=== PATIENT | male | born 1955 | race African-American/Black ===

== ENCOUNTER 2016-10-23 12:00 | Emergency (ER) | payer MEDICARE, MEDICAID ==
[~2016-10-23] VITALS: Ht 170.2 cm; Wt 80.0 kg
[~2016-10-23 12:00] MED LIST: AMLO10TA80 PO; ATOR10TA PO; CLOP75TA33 PO; DIPH25CA83 PO; GLIP5TAB12 PO; METF10002 PO; NAPR-681 PO; TAMS0.4C31 PO
[2016-10-23] MEDS ORDERED: DIPHENHYDRAMINE 50MG/ML VIAL IM ONE (13:45)
[2016-10-23] MEDS ORDERED: METOCLOPRAMIDE HCL 10MG/2ML VIAL IV ONE (13:45)
[2016-10-23] MEDS ORDERED: ACETAMINOPHEN WITH CODEINE 300/30MG TABLET PO ONE (13:45)
[2016-10-23 19:51] VITALS: BP 136/66
== END 2016-10-23 20:02 | disposition home or self-care (01) ==
LOC: ER 12:00
DX: R51 Headache (principal); I10 Essential (primary) hypertension; E11.9 Type 2 diabetes mellitus without complications; I69.351 Hemiplegia and hemiparesis following cerebral infarction affecting right dominant side; I69.321 Dysphasia following cerebral infarction; Z79.84 Long term (current) use of oral hypoglycemic drugs; Z79.899 Other long term (current) drug therapy
CPT/HCPCS: 96372; 96374; 99284; J1200; J2765

== ENCOUNTER 2017-04-26 01:49 | Emergency (ER) | payer MEDICARE, MEDICAID ==
[~2017-04-26] VITALS: Ht 180.3 cm; Wt 109.0 kg
[2017-04-26] MEDS ORDERED: ONDANSETRON HCL 4MG/2ML VIAL IV STA (02:36)
[2017-04-26] MEDS ORDERED: MORPHINE SULFATE 4 MG/ML CPJ (NOT FOR IM USE) IV STA (02:36)
[2017-04-26] MEDS ORDERED: ENALAPRIL 2.5MG/2ML VIAL 2ML IV ONE (02:45)
[2017-04-26 02:54] LABS: BASOPHILS % 0.7 % (0.0-2.0); EOSINOPHILS % 4.8 % (0.0-5.0); HEMATOCRIT. 34.2 % (42.0-52.0); HEMOGLOBIN. 11.6 g/dL (14.0-18.0); LYMPHOCYTES % 31.1 % (20.0-50.0); MEAN CORPUSCULAR HEMOGLOBIN 30.1 pg (28.0-32.0); MEAN CORPUSCULAR VOLUME 88.4 fL (80.0-94.0); MONOCYTES % 7.7 % (2.0-8.0); NEUTROPHILS % 55.7 % (40.0-76.0); PLATELET 210 x1000/uL (130-400); RED BLOOD CELL COUNT 3.87 mill/uL (4.7-6.1); RED CELL DISTRIBUTION WIDTH 13.7 % (11.6-14.6)
[2017-04-26 02:57] LABS: CHLORIDE 104 mEq/L (98-107)
[2017-04-26 03:05] LABS: CARBON DIOXIDE 31 mEq/L (21-32)
[2017-04-26 08:02] VITALS: BP 158/76
== END 2017-04-26 08:08 | disposition home or self-care (01) ==
LOC: ER 01:49
DX: R51 Headache (principal); I10 Essential (primary) hypertension; E11.9 Type 2 diabetes mellitus without complications; Z86.73 Personal history of transient ischemic attack (TIA), and cerebral infarction without residual deficits
CPT/HCPCS: 36415; 70450; 80053; 85025; 96374; 96375; 99285; J2270; J2405; J3490

== ENCOUNTER 2017-05-17 15:37 | Emergency (ER) | payer MEDICARE, MEDICAID ==
[~2017-05-17] VITALS: Ht 167.6 cm; Wt 91.0 kg
[2017-05-17] MEDS ORDERED: SODIUM CHLORIDE 0.9% 1,000 ML IV ONE (17:38)
[2017-05-17] MEDS ORDERED: KETOROLAC 30MG/ML VIAL IV STA (17:38)
[2017-05-17] MEDS ORDERED: METOCLOPRAMIDE HCL 10MG/2ML VIAL IV ONE (17:45)
[2017-05-17 21:40] VITALS: BP 168/76
== END 2017-05-17 22:06 | disposition home or self-care (01) ==
LOC: ER 15:37
DX: R51 Headache (principal); I10 Essential (primary) hypertension; E11.9 Type 2 diabetes mellitus without complications; Z79.84 Long term (current) use of oral hypoglycemic drugs
CPT/HCPCS: 96361; 96374; 96375; 99285; J1885; J2765; J7030

== ENCOUNTER 2017-07-06 05:25 | Inpatient (IN) | payer MEDICARE, MEDICAID ==
[~2017-07-06] VITALS: Ht 170.2 cm; Wt 101.7 kg
[2017-07-06] MEDS ORDERED: NITROGLYCERIN OINT 1GM/INCH UDPKT TD STA (06:17)
[2017-07-06] MEDS ORDERED: MORPHINE SULFATE 4 MG/ML CPJ (NOT FOR IM USE) IV ONE (06:30)
[2017-07-06] MEDS ORDERED: ASPIRIN 325MG EC TABLET PO ONE (06:30)
[2017-07-06 06:34] LABS: EOSINOPHILS % 6.6 % (0.0-5.0); HEMATOCRIT. 30.7 % (42.0-52.0); HEMOGLOBIN. 10.6 g/dL (14.0-18.0); LYMPHOCYTES % 27.9 % (20.0-50.0); MEAN CORPUSCULAR VOLUME 87.2 fL (80.0-94.0); MEAN PLATELET VOLUME 9.3 fl (7.4-10.4); MONOCYTES % 7.6 % (2.0-8.0); NEUTROPHILS % 56.9 % (40.0-76.0); PLATELET 175 x1000/uL (130-400); RED BLOOD CELL COUNT 3.52 mill/uL (4.7-6.1); RED CELL DISTRIBUTION WIDTH 13.1 % (11.6-14.6)
[2017-07-06 06:41] LABS: CHLORIDE 103 mEq/L (98-107)
[2017-07-06 06:51] LABS: INR 1.1; PARTIAL THROMBOPLASTIN TIME 25.5 sec (23.4-31.0); PROTHROMBIN TIME 11.1 sec (9.4-11.6)
[2017-07-06] MEDS ORDERED: HYDROCODONE/ACETAMINOPHEN 5/325MG TABLET PO ONE (12:00)
[2017-07-06] MEDS ORDERED: HYDROCODONE/ACETAMINOPHEN 5/325MG TABLET PO PRN (14:30)
[2017-07-06] MEDS ORDERED: ACETAMINOPHEN 325MG TABLET PO PRN (14:30)
[2017-07-06] MEDS ORDERED: DEXTROSE 50% WATER 50ML SYRINGE IV PRN (14:30)
[2017-07-06] MEDS ORDERED: ONDANSETRON HCL 4MG/2ML VIAL IV PRN (14:30)
[2017-07-06] MEDS ORDERED: IPRATROPIUM/ALBUTEROL 0.5-3(2.5)MG/3ML NEB INH PRN (14:30)
[2017-07-06] MEDS ORDERED: CLONIDINE 0.1MG TABLET PO PRN (14:30)
[2017-07-06] MEDS ORDERED: DIPHENHYDRAMINE 50MG/ML VIAL IV PRN (14:30)
[2017-07-06 17:30] VITALS: BP 188/79
[2017-07-06] MEDS: BLOOD SUGAR DIAGNOSTIC STRIP TEST SCH ×2 (17:30→20:56)
[2017-07-06] MEDS ORDERED: IBUP-2030 PO (17:35)
[2017-07-06] MEDS ORDERED: TAMS0.4C31 PO ×2 (17:40→17:42)
[2017-07-06] MEDS ORDERED: FURO20TA4 PO (17:43)
[2017-07-06] MEDS ORDERED: HYDR25TA PO (17:44)
[2017-07-06] MEDS ORDERED: LISI40TA4 PO (17:46)
[2017-07-06] MEDS ORDERED: CARV25TA47 PO (17:47)
[2017-07-06] MEDS: AMLODIPINE 10MG TABLET PO SCH (19:21)
[2017-07-06] MEDS: LOSARTAN POTASSIUM 50 MG TABLET PO SCH (19:21)
[2017-07-06 20:00] VITALS: BP 158/62
[2017-07-06] MEDS ORDERED: ATORVASTATIN CALCIUM 10MG TABLET PO SCH (21:00)
[2017-07-06] MEDS: INSULIN LISPRO 100 UNITS/ML SUBCUT SCH (21:51)
[2017-07-06] MEDS ORDERED: FUROSEMIDE 20MG TABLET PO PRN (22:30)
[2017-07-06 22:31] LABS: CLARITY URINE CLEAR (CLEAR); COLOR URINE YELLOW (YELLOW); KETONES URINE NEGATIVE (NEGATIVE); LEUKOCYTE ESTERASE URINE NEGATIVE (NEGATIVE); NITRITE URINE NEGATIVE (NEGATIVE); OCCULT BLOOD URINE NEGATIVE (NEGATIVE); PH URINE 5.5 (4.5-8.0); PROTEIN URINE NEGATIVE (NEGATIVE); SPECIFIC GRAVITY URINE 1.011 (1.005-1.030); UROBILINOGEN URINE 0.2 E.U./dL (0.2-1.0)
[2017-07-06 22:45] LABS: *AMPHETAMINES SCREEN URINE NEGATIVE (NEGATIVE); *BARBITURATES SCREEN URINE NEGATIVE (NEGATIVE); *BENZODIAZEPINES SCREEN URINE NEGATIVE (NEGATIVE); *COCAINE SCREEN URINE NEGATIVE (NEGATIVE); CANNABINOID URINE SCREEN NEGATIVE (NEGATIVE); METHADONE URINE SCREEN NEGATIVE (NEGATIVE); OPIATES URINE SCREEN PRESUMTIVE POSITIVE (NEGATIVE); PHENCYCLIDINE URINE SCREEN NEGATIVE (NEGATIVE)
[2017-07-07] VITALS: BP 181/71
[2017-07-07] MEDS: IBUPROFEN 800MG TABLET PO SCH ×3 (00:13→13:42)
[2017-07-07 04:00] VITALS: BP 147/54
[2017-07-07] MEDS: BLOOD SUGAR DIAGNOSTIC STRIP TEST SCH ×2 (06:18→11:45)
[2017-07-07] MEDS: INSULIN LISPRO 100 UNITS/ML SUBCUT SCH ×2 (06:22→13:44)
[2017-07-07] MEDS ORDERED: TAMSULOSIN HCL 0.4MG SR CAPSULE PO SCH (07:15)
[2017-07-07] MEDS ORDERED: METFORMIN HCL 500MG TABLET PO SCH (07:15)
[2017-07-07 07:40] LABS: BASOPHILS % 0.4 % (0.0-2.0); EOSINOPHILS % 5.5 % (0.0-5.0); HEMATOCRIT. 30.7 % (42.0-52.0); HEMOGLOBIN. 10.9 g/dL (14.0-18.0); MEAN CORPUSCULAR HEMOGLOBIN 30.7 pg (28.0-32.0); MEAN CORPUSCULAR VOLUME 86.2 fL (80.0-94.0); MEAN PLATELET VOLUME 9.2 fl (7.4-10.4); MONOCYTES % 6.5 % (2.0-8.0); NEUTROPHILS % 56.6 % (40.0-76.0); PLATELET 194 x1000/uL (130-400); RED BLOOD CELL COUNT 3.56 mill/uL (4.7-6.1); RED CELL DISTRIBUTION WIDTH 13.4 % (11.6-14.6)
[2017-07-07 08:00] VITALS: BP 119/65
[2017-07-07 08:37] LABS: CHLORIDE 103 mEq/L (98-107)
[2017-07-07 08:49] LABS: HDL CHOLESTEROL 28 mg/dL (40-59); LDL CHOLESTEROL 53 mg/dL (5-100)
[2017-07-07] MEDS: AMLODIPINE 10MG TABLET PO SCH (08:54)
[2017-07-07] MEDS ORDERED: CARVEDILOL 25MG TABLET PO SCH (09:00)
[2017-07-07] MEDS ORDERED: HYDROCHLOROTHIAZIDE 25MG TABLET PO SCH (09:00)
[2017-07-07] MEDS ORDERED: GLIPIZIDE 5MG TABLET PO SCH (09:00)
[2017-07-07] MEDS ORDERED: CLOPIDOGREL 75MG TABLET PO SCH (09:00)
[2017-07-07] MEDS ORDERED: LISINOPRIL 40MG TABLET PO SCH (09:00)
[2017-07-07] MEDS: LOSARTAN POTASSIUM 50 MG TABLET PO SCH (09:03)
[2017-07-07] MEDS ORDERED: TAMS-11 PO (10:00)
[2017-07-07 12:00] VITALS: BP_SYST 130
[2017-07-07 15:33] VITALS: BP 130/55
[2017-07-07 16:00] VITALS: BP 153/65
[2017-07-08] MEDS ORDERED: TAMSULOSIN HCL 0.4MG SR CAPSULE PO SCH (09:00)
[2017-07-09 10:06] LABS: ABSOLUTE EOSINOPHILS 0.4 x10E3/uL (0.0-0.4); ABSOLUTE LYMPHOCYTES 2.2 x10E3/uL (0.7-3.1); ABSOLUTE MONOCYTES 0.5 x10E3/uL (0.1-0.9); ABSOLUTE NEUTROPHILS 4.1 x10E3/uL (1.4-7.0); BASOPHILS 1 % (Not Estab.); HEMATOCRIT 34.6 % (37.5-51.0); HEMOGLOBIN 10.8 g/dL (13.0-17.7); IMMATURE GRANULOCYTES 0 % (Not Estab.); LYMPHOCYTES 31 % (Not Estab.); MEAN CORPUSCULAR HEMOGLOBIN 29.8 pg (26.6-33.0); MEAN CORPUSCULAR HGB CONC. 31.2 g/dL (31.5-35.7); MEAN CORPUSCULAR VOLUME 96 fL (79-97); MONOCYTES 7 % (Not Estab.); NEUTROPHILS 56 % (Not Estab.); PLATELETS 208 x10E3/uL (150-379); RBC 3.62 x10E6/uL (4.14-5.80); RED CELL DISTRIBUTION WIDTH 13.8 % (12.3-15.4); WBC 7.2 x10E3/uL (3.4-10.8)
[2017-07-10 04:12] LABS: % CD 3 POS. LYMPHOCYTES 81.4 % (57.5-86.2); % CD 4 POS. LYMPHOCYTES 55.6 % (30.8-58.5); % CD 8 POS. LYMPH 26.3 % (12.0-35.5); ABSOLUTE CD 3 1791 /uL (622-2402); ABSOLUTE CD 4 HELPER 1223 /uL (359-1519); ABSOLUTE CD 8 SUPPRESSOR 579 /uL (109-897); CD4/CD8 RATIO 2.11 (0.92-3.72)
== END 2017-07-07 17:02 | disposition home or self-care (01) | DRG 206 ==
LOC: ER 05:25 → 5WST 13:18 → ENRESERV 15:38
PROVIDERS: ADMIT Internal Medicine; ATTEND Internal Medicine
DX: M94.0 Chondrocostal junction syndrome [Tietze] (principal); I11.0 Hypertensive heart disease with heart failure; I50.9 Heart failure, unspecified; I69.351 Hemiplegia and hemiparesis following cerebral infarction affecting right dominant side; D64.9 Anemia, unspecified; E11.9 Type 2 diabetes mellitus without complications; E78.5 Hyperlipidemia, unspecified; N40.0 Benign prostatic hyperplasia without lower urinary tract symptoms; Z60.2 Problems related to living alone; Z82.49 Family history of ischemic heart disease and other diseases of the circulatory system; Z83.3 Family history of diabetes mellitus; Z79.899 Other long term (current) drug therapy
CPT/HCPCS: 36415; 71045; 80053; 80061; 80305; 81003; 82962; 83036; 83690; 84484; 85025; 85610; 85730; 86359; 86360; 87040; 87086; 93005; 93306; 96374; 99285; J1815; J2270; J2405

== ENCOUNTER 2017-07-22 19:38 | Emergency (ER) | payer MEDICARE, MEDICAID ==
[~2017-07-22] VITALS: Ht 170.2 cm; Wt 98.0 kg
[~2017-07-22 19:38] MED LIST changes: -AMLO10TA80 PO; +CARV25TA47 PO; -CLOP75TA33 PO; -DIPH25CA83 PO; +FURO20TA4 PO; +HYDR25TA PO; +IBUP-2030 PO; +LISI40TA4 PO; -NAPR-681 PO; +TAMS-11 PO; -TAMS0.4C31 PO
[2017-07-22 20:31] LABS: BASOPHILS % 0.4 % (0.0-2.0); EOSINOPHILS % 4.7 % (0.0-5.0); HEMATOCRIT. 35.4 % (42.0-52.0); LYMPHOCYTES % 27.4 % (20.0-50.0); MEAN CORPUSCULAR HEMOGLOBIN 29.8 pg (28.0-32.0); MEAN CORPUSCULAR VOLUME 87.8 fL (80.0-94.0); MEAN PLATELET VOLUME 9.5 fl (7.4-10.4); MONOCYTES % 6.8 % (2.0-8.0); NEUTROPHILS % 60.7 % (40.0-76.0); PLATELET 222 x1000/uL (130-400); RED BLOOD CELL COUNT 4.03 mill/uL (4.7-6.1); RED CELL DISTRIBUTION WIDTH 13.6 % (11.6-14.6)
[2017-07-22 20:36] LABS: CHLORIDE 105 mEq/L (98-107)
[2017-07-22 20:40] LABS: ETHANOL BLOOD < 10 mg/dL
[2017-07-22 20:48] LABS: INR 1.1; PROTHROMBIN TIME 11.5 sec (9.4-11.6)
[2017-07-22] MEDS ORDERED: IOHEXOL-350 100 ML BOTTLE ONE (22:42)
[2017-07-23] MEDS ORDERED: ASPIRIN 300MG SUPP PR ONE
[2017-07-23 00:47] VITALS: BP 172/80
== END 2017-07-23 01:00 | disposition short-term general hospital (02) ==
LOC: ER 20:20 → CANBEDREQ 07-23 02:45
DX: I63.9 Cerebral infarction, unspecified (principal); I66.01 Occlusion and stenosis of right middle cerebral artery; R29.810 Facial weakness; G81.94 Hemiplegia, unspecified affecting left nondominant side; R47.02 Dysphasia; R79.89 Other specified abnormal findings of blood chemistry; E11.9 Type 2 diabetes mellitus without complications; I11.0 Hypertensive heart disease with heart failure; I50.9 Heart failure, unspecified; E78.00 Pure hypercholesterolemia, unspecified; I69.398 Other sequelae of cerebral infarction; R90.82 White matter disease, unspecified; Z79.84 Long term (current) use of oral hypoglycemic drugs
CPT/HCPCS: 36415; 51702; 70450; 70496; 70498; 71045; 80053; 82962; 84484; 85025; 85610; 93005; 99291; G0482; J7030; Q9967; A4315

== ENCOUNTER 2017-08-26 11:03 | Inpatient (IN) | payer MEDICARE, MEDICAID ==
[~2017-08-26] VITALS: Ht 170.2 cm; Wt 103.6 kg
[2017-08-26] MEDS ORDERED: SODIUM CHLORIDE 0.9% 500 ML IV ONE (14:15)
[2017-08-26 14:52] LABS: BASOPHILS % 0.4 % (0.0-2.0); EOSINOPHILS % 0.2 % (0.0-5.0); HEMATOCRIT. 36.6 % (42.0-52.0); HEMOGLOBIN. 12.5 g/dL (14.0-18.0); LYMPHOCYTES % 11.2 % (20.0-50.0); MEAN CORPUSCULAR HEMOGLOBIN 29.9 pg (28.0-32.0); MEAN CORPUSCULAR VOLUME 87.1 fL (80.0-94.0); MONOCYTES % 7.5 % (2.0-8.0); NEUTROPHILS % 80.7 % (40.0-76.0); PLATELET 220 x1000/uL (130-400); RED CELL DISTRIBUTION WIDTH 13.7 % (11.6-14.6)
[2017-08-26 14:54] LABS: CHLORIDE 105 mEq/L (98-107)
[2017-08-26 14:55] LABS: INR 1.1; PROTHROMBIN TIME 11.6 sec (9.4-11.6)
[2017-08-26 14:58] LABS: AMMONIA 23 uMol/L (<32)
[2017-08-26 16:01] LABS: CLARITY URINE CLEAR (CLEAR); COLOR URINE YELLOW (YELLOW); KETONES URINE 3+ (NEGATIVE); LEUKOCYTE ESTERASE URINE NEGATIVE (NEGATIVE); NITRITE URINE NEGATIVE (NEGATIVE); OCCULT BLOOD URINE NEGATIVE (NEGATIVE); PH URINE 5.5 (4.5-8.0); PROTEIN URINE 2+ (NEGATIVE); SPECIFIC GRAVITY URINE 1.023 (1.005-1.030)
[2017-08-26 16:16] LABS: *AMPHETAMINES SCREEN URINE NEGATIVE (NEGATIVE); *BARBITURATES SCREEN URINE NEGATIVE (NEGATIVE); *BENZODIAZEPINES SCREEN URINE NEGATIVE (NEGATIVE)
[2017-08-26 16:17] LABS: *COCAINE SCREEN URINE NEGATIVE (NEGATIVE); CANNABINOID URINE SCREEN NEGATIVE (NEGATIVE); METHADONE URINE SCREEN NEGATIVE (NEGATIVE); OPIATES URINE SCREEN NEGATIVE (NEGATIVE); PHENCYCLIDINE URINE SCREEN NEGATIVE (NEGATIVE)
[2017-08-26] MEDS ORDERED: HYDRALAZINE 20MG/ML VIAL IV ONE ×2 (17:45→19:00)
[2017-08-26] MEDS ORDERED: SODIUM CHLORIDE 0.9% 1,000 ML IV ONE (18:45)
[2017-08-26 20:43] LABS: HEPATITIS B SURFACE ANTIGEN NEGATIVE
[2017-08-26 21:12] LABS: HEPATITIS B CORE AB IGM NEGATIVE
[2017-08-26 21:13] LABS: HEPATITIS A AB IGM NEGATIVE (NEGATIVE)
[2017-08-26 21:58] LABS: AMMONIA 26 uMol/L (<32)
[2017-08-26 22:00] VITALS: BP 179/76
[2017-08-26 22:10] VITALS: BP 179/72
[2017-08-27] VITALS: BP 175/81
[2017-08-27] MEDS ORDERED: DEXTROSE 50% WATER 50ML SYRINGE IV PRN (00:30)
[2017-08-27] MEDS ORDERED: IBUPROFEN 800MG TABLET PO PRN (00:30)
[2017-08-27] MEDS ORDERED: FUROSEMIDE 20MG TABLET PO PRN (00:30)
[2017-08-27] MEDS: CARVEDILOL 25MG TABLET PO SCH ×3 (01:31→21:00)
[2017-08-27] MEDS: HYDROCHLOROTHIAZIDE 25MG TABLET PO SCH ×4 (01:31→17:00)
[2017-08-27] MEDS ORDERED: IPRATROPIUM/ALBUTEROL 0.5-3(2.5)MG/3ML NEB ONE (01:55)
[2017-08-27] MEDS: IPRATROPIUM/ALBUTEROL 0.5-3(2.5)MG/3ML NEB HHN SCH ×5 (01:56→20:57)
[2017-08-27] MEDS ORDERED: ACETAMINOPHEN 650MG/20.3ML UDC PO PRN (03:45)
[2017-08-27 04:00] VITALS: BP 154/73
[2017-08-27] MEDS: BLOOD SUGAR DIAGNOSTIC STRIP TEST SCH ×4 (06:07→21:55)
[2017-08-27] MEDS: INSULIN LISPRO 100 UNITS/ML SUBCUT SCH ×4 (06:07→21:00)
[2017-08-27 06:44] LABS: BASOPHILS % 0.3 % (0.0-2.0); EOSINOPHILS % 0.3 % (0.0-5.0); HEMATOCRIT. 36.2 % (42.0-52.0); HEMOGLOBIN. 12.3 g/dL (14.0-18.0); LYMPHOCYTES % 11.2 % (20.0-50.0); MEAN CORPUSCULAR HEMOGLOBIN 29.9 pg (28.0-32.0); MONOCYTES % 7.6 % (2.0-8.0); NEUTROPHILS % 80.6 % (40.0-76.0); PLATELET 219 x1000/uL (130-400); RED BLOOD CELL COUNT 4.12 mill/uL (4.7-6.1)
[2017-08-27 06:59] LABS: CHLORIDE 106 mEq/L (98-107)
[2017-08-27 07:09] LABS: LDL CHOLESTEROL 40 mg/dL (5-100)
[2017-08-27 07:11] LABS: HDL CHOLESTEROL 40 mg/dL (40-59)
[2017-08-27 08:00] VITALS: BP 167/73
[2017-08-27] MEDS ORDERED: CLONIDINE 0.1MG TABLET PO PRN (09:30)
[2017-08-27] MEDS ORDERED: VANCOMYCIN 2,000 MG in DEXT 5% WATER 500 ML IV NR (11:00)
[2017-08-27] MEDS: LISINOPRIL 40MG TABLET PO SCH (11:11)
[2017-08-27] MEDS: TAMSULOSIN HCL 0.4MG SR CAPSULE PO SCH (11:12)
[2017-08-27] MEDS: METFORMIN HCL 500MG TABLET PO SCH ×2 (11:12→17:09)
[2017-08-27 12:00] VITALS: BP 155/62
[2017-08-27 16:00] VITALS: BP 118/63
[2017-08-27] MEDS ORDERED: ATORVASTATIN CALCIUM 10MG TABLET PO SCH (17:00)
[2017-08-27] MEDS: PIPERACILLIN/TAZ 3.375G PREMIX 50 ML IV SCH ×2 (18:15→23:26)
[2017-08-27] MEDS: DEXT 5%/0.45% NACL 1000ML 1,000 ML IV SCH (18:15)
[2017-08-27] MEDS: CLOPIDOGREL 75MG TABLET PO SCH (19:30)
[2017-08-27 20:00] VITALS: BP 144/64
[2017-08-27] MEDS ORDERED: VANCOMYCIN 1250MG in DEXTROSE 5% WATER 250ML IV SCH (21:00)
[2017-08-27] MEDS ORDERED: ATORVASTATIN CALCIUM 40MG TABLET PO SCH (21:00)
[2017-08-27] MEDS: ENOXAPARIN 30MG/0.3ML SYR SUBCUT SCH (21:55)
[2017-08-27] MEDS: VANCOMYCIN 1500MG in DEXTROSE 5% WATER 250ML IV SCH (21:55)
[2017-08-28] VITALS: BP 155/69
[2017-08-28] MEDS: IPRATROPIUM/ALBUTEROL 0.5-3(2.5)MG/3ML NEB HHN SCH ×5 (00:47→21:19)
[2017-08-28 04:00] VITALS: BP 156/58
[2017-08-28] MEDS: PIPERACILLIN/TAZ 3.375G PREMIX 50 ML IV SCH ×3 (05:07→22:37)
[2017-08-28 05:50] LABS: BASOPHILS % 0.4 % (0.0-2.0); HEMATOCRIT. 35.9 % (42.0-52.0); HEMOGLOBIN. 12.2 g/dL (14.0-18.0); LYMPHOCYTES % 16.2 % (20.0-50.0); MEAN CORPUSCULAR VOLUME 88.5 fL (80.0-94.0); MEAN PLATELET VOLUME 8.8 fl (7.4-10.4); MONOCYTES % 8.4 % (2.0-8.0); PLATELET 212 x1000/uL (130-400); RED BLOOD CELL COUNT 4.06 mill/uL (4.7-6.1); RED CELL DISTRIBUTION WIDTH 13.8 % (11.6-14.6)
[2017-08-28] MEDS: BLOOD SUGAR DIAGNOSTIC STRIP TEST SCH ×4 (06:31→21:00)
[2017-08-28] MEDS: DEXT 5%/0.45% NACL 1000ML 1,000 ML IV SCH ×2 (06:31→16:05)
[2017-08-28] MEDS: INSULIN LISPRO 100 UNITS/ML SUBCUT SCH ×4 (06:32→22:11)
[2017-08-28] MEDS: METFORMIN HCL 500MG TABLET PO SCH ×2 (06:33→16:22)
[2017-08-28 08:00] VITALS: BP 148/54
[2017-08-28 08:20] LABS: HIV SCREEN 4G Non Reactive (Non Reactive)
[2017-08-28] MEDS: CARVEDILOL 25MG TABLET PO SCH (09:00)
[2017-08-28] MEDS: HYDROCHLOROTHIAZIDE 25MG TABLET PO SCH ×3 (09:00→16:22)
[2017-08-28] MEDS: LISINOPRIL 40MG TABLET PO SCH (09:00)
[2017-08-28] MEDS: TAMSULOSIN HCL 0.4MG SR CAPSULE PO SCH (10:31)
[2017-08-28] MEDS: CLOPIDOGREL 75MG TABLET PO SCH (10:32)
[2017-08-28] MEDS ORDERED: IOHEXOL-350 100 ML BOTTLE ONE (11:03)
[2017-08-28 12:00] VITALS: BP 177/85
[2017-08-28] MEDS: VANCOMYCIN 1500MG in DEXTROSE 5% WATER 250ML IV SCH ×2 (12:10→22:08)
[2017-08-28] MEDS: ENOXAPARIN 30MG/0.3ML SYR SUBCUT SCH ×2 (12:11→22:08)
[2017-08-28 16:00] VITALS: BP 140/59
[2017-08-28 17:50] LABS: CREATINE KINASE 130 IU/L (39-308)
[2017-08-28 20:00] VITALS: BP 186/72
[2017-08-28] MEDS ORDERED: AMLODIPINE 5MG TABLET PO SCH (21:00)
[2017-08-28] MEDS ORDERED: FUROSEMIDE 20MG TABLET NG PRN (21:15)
[2017-08-28] MEDS ORDERED: IBUPROFEN 800MG TABLET NG PRN (21:15)
[2017-08-28] MEDS ORDERED: CLONIDINE 0.1MG TABLET NG PRN (21:30)
[2017-08-28] MEDS ORDERED: ACETAMINOPHEN 650MG/20.3ML UDC NG PRN (21:45)
[2017-08-29] VITALS: BP 172/79
[2017-08-29] MEDS: IPRATROPIUM/ALBUTEROL 0.5-3(2.5)MG/3ML NEB HHN SCH ×6 (01:57→20:33)
[2017-08-29 04:00] VITALS: BP 166/81
[2017-08-29] MEDS: PIPERACILLIN/TAZ 3.375G PREMIX 50 ML IV SCH ×3 (05:51→21:05)
[2017-08-29] MEDS: DEXT 5%/0.45% NACL 1000ML 1,000 ML IV SCH ×3 (05:51→20:00)
[2017-08-29] MEDS: BLOOD SUGAR DIAGNOSTIC STRIP TEST SCH ×4 (05:51→20:58)
[2017-08-29] MEDS: INSULIN LISPRO 100 UNITS/ML SUBCUT SCH ×3 (06:28→20:58)
[2017-08-29] MEDS: METFORMIN HCL 500MG TABLET NG SCH ×2 (06:39→16:53)
[2017-08-29 07:28] LABS: BASOPHILS % 0.5 % (0.0-2.0); HEMATOCRIT. 34.3 % (42.0-52.0); HEMOGLOBIN. 11.8 g/dL (14.0-18.0); LYMPHOCYTES % 14.4 % (20.0-50.0); MEAN CORPUSCULAR VOLUME 87.4 fL (80.0-94.0); MEAN PLATELET VOLUME 8.8 fl (7.4-10.4); MONOCYTES % 7.3 % (2.0-8.0); NEUTROPHILS % 74.8 % (40.0-76.0); PLATELET 192 x1000/uL (130-400); RED BLOOD CELL COUNT 3.93 mill/uL (4.7-6.1); RED CELL DISTRIBUTION WIDTH 13.8 % (11.6-14.6)
[2017-08-29 07:53] LABS: CHLORIDE 103 mEq/L (98-107)
[2017-08-29 08:00] VITALS: BP 177/82
[2017-08-29] MEDS: CARVEDILOL 25MG TABLET NG SCH ×2 (09:06→21:05)
[2017-08-29] MEDS: LISINOPRIL 40MG TABLET NG SCH (09:07)
[2017-08-29] MEDS: HYDROCHLOROTHIAZIDE 25MG TABLET NG SCH ×3 (09:07→16:52)
[2017-08-29] MEDS: AMLODIPINE 5MG TABLET NG SCH ×2 (09:08→21:05)
[2017-08-29] MEDS: VANCOMYCIN 1500MG in DEXTROSE 5% WATER 250ML IV SCH (09:08)
[2017-08-29] MEDS: CLOPIDOGREL 75MG TABLET NG SCH (09:08)
[2017-08-29] MEDS: ENOXAPARIN 30MG/0.3ML SYR SUBCUT SCH ×2 (09:09→21:07)
[2017-08-29 12:00] VITALS: BP 152/86
[2017-08-29] MEDS ORDERED: POTASSIUM CHLORIDE 20MEQ/PACKET PO NR (13:30)
[2017-08-29] MEDS: HYDRALAZINE HCL 50MG TABLET PO SCH ×2 (13:34→21:06)
[2017-08-29] MEDS ORDERED: HYDRALAZINE HCL 50MG TABLET PO SCH (14:00)
[2017-08-29 16:00] VITALS: BP 138/69
[2017-08-29] MEDS: VANCOMYCIN 1 G PREMIX 200 ML IV SCH (16:52)
[2017-08-29 20:20] VITALS: BP 142/76
[2017-08-29] MEDS: ATORVASTATIN CALCIUM 40MG TABLET NG SCH (21:06)
[2017-08-30] MEDS: IPRATROPIUM/ALBUTEROL 0.5-3(2.5)MG/3ML NEB HHN SCH ×5 (00:04→20:41)
[2017-08-30 00:33] VITALS: BP 116/47
[2017-08-30] MEDS: VANCOMYCIN 1 G PREMIX 200 ML IV SCH ×3 (01:47→18:25)
[2017-08-30 04:00] VITALS: BP 116/46
[2017-08-30] MEDS: BLOOD SUGAR DIAGNOSTIC STRIP TEST SCH ×4 (05:38→21:25)
[2017-08-30] MEDS: DEXT 5%/0.45% NACL 1000ML 1,000 ML IV SCH (05:38)
[2017-08-30] MEDS: METFORMIN HCL 500MG TABLET NG SCH ×2 (05:38→17:14)
[2017-08-30] MEDS: PIPERACILLIN/TAZ 3.375G PREMIX 50 ML IV SCH ×3 (05:38→21:25)
[2017-08-30] MEDS: INSULIN LISPRO 100 UNITS/ML SUBCUT SCH ×4 (05:40→21:00)
[2017-08-30] MEDS: HYDRALAZINE HCL 50MG TABLET PO SCH ×3 (05:42→21:25)
[2017-08-30 06:43] LABS: EOSINOPHILS % 4.1 % (0.0-5.0); HEMATOCRIT. 34.5 % (42.0-52.0); HEMOGLOBIN. 11.9 g/dL (14.0-18.0); LYMPHOCYTES % 17.4 % (20.0-50.0); MEAN CORPUSCULAR HEMOGLOBIN 30.4 pg (28.0-32.0); MEAN CORPUSCULAR VOLUME 87.6 fL (80.0-94.0); MEAN PLATELET VOLUME 8.9 fl (7.4-10.4); MONOCYTES % 8.4 % (2.0-8.0); NEUTROPHILS % 69.1 % (40.0-76.0); PLATELET 188 x1000/uL (130-400); RED BLOOD CELL COUNT 3.93 mill/uL (4.7-6.1); RED CELL DISTRIBUTION WIDTH 13.7 % (11.6-14.6)
[2017-08-30 07:11] LABS: CHLORIDE 101 mEq/L (98-107)
[2017-08-30 08:19] VITALS: BP 137/51
[2017-08-30] MEDS: ENOXAPARIN 30MG/0.3ML SYR SUBCUT SCH ×2 (09:27→21:28)
[2017-08-30] MEDS: HYDROCHLOROTHIAZIDE 25MG TABLET NG SCH ×3 (09:27→17:14)
[2017-08-30] MEDS: CLOPIDOGREL 75MG TABLET NG SCH (09:27)
[2017-08-30] MEDS: CARVEDILOL 25MG TABLET NG SCH ×2 (09:27→21:24)
[2017-08-30] MEDS: LISINOPRIL 40MG TABLET NG SCH (09:27)
[2017-08-30] MEDS: AMLODIPINE 5MG TABLET NG SCH ×2 (09:28→21:24)
[2017-08-30] MEDS ORDERED: LACTULOSE 20G/30ML UDC PO PRN (11:30)
[2017-08-30] MEDS ORDERED: ONDANSETRON HCL 4MG/2ML VIAL IV PRN (11:30)
[2017-08-30 12:20] VITALS: BP 121/41
[2017-08-30] MEDS: DOCUSATE SODIUM 250MG CAPSULE PO SCH (12:42)
[2017-08-30 15:24] VITALS: BP 143/60
[2017-08-30 20:00] VITALS: BP 152/77
[2017-08-30] MEDS: ATORVASTATIN CALCIUM 40MG TABLET NG SCH (21:24)
[2017-08-30] MEDS: PANTOPRAZOLE SODIUM 40 MG/VIAL IV SCH (21:27)
[2017-08-31] VITALS: BP 142/53
[2017-08-31] MEDS: IPRATROPIUM/ALBUTEROL 0.5-3(2.5)MG/3ML NEB HHN SCH ×6 (00:35→21:35)
[2017-08-31] MEDS: VANCOMYCIN 1 G PREMIX 200 ML IV SCH ×2 (01:26→10:11)
[2017-08-31 04:00] VITALS: BP 149/65
[2017-08-31] MEDS: PIPERACILLIN/TAZ 3.375G PREMIX 50 ML IV SCH ×3 (05:04→21:14)
[2017-08-31] MEDS: BLOOD SUGAR DIAGNOSTIC STRIP TEST SCH ×4 (06:18→21:13)
[2017-08-31] MEDS: INSULIN LISPRO 100 UNITS/ML SUBCUT SCH ×4 (06:20→21:00)
[2017-08-31 07:45] VITALS: BP 147/63
[2017-08-31] MEDS: HYDROCHLOROTHIAZIDE 25MG TABLET NG SCH ×3 (10:08→17:00)
[2017-08-31] MEDS: PANTOPRAZOLE SODIUM 40 MG/VIAL IV SCH ×2 (10:08→21:12)
[2017-08-31] MEDS: CARVEDILOL 25MG TABLET NG SCH ×2 (10:09→21:00)
[2017-08-31] MEDS: LISINOPRIL 40MG TABLET NG SCH (10:10)
[2017-08-31] MEDS: METFORMIN HCL 500MG TABLET NG SCH ×2 (10:11→17:15)
[2017-08-31] MEDS: DOCUSATE SODIUM 250MG CAPSULE PO SCH (10:11)
[2017-08-31] MEDS: AMLODIPINE 5MG TABLET NG SCH ×2 (10:11→21:00)
[2017-08-31] MEDS: ENOXAPARIN 30MG/0.3ML SYR SUBCUT SCH (10:12)
[2017-08-31 11:50] VITALS: BP 133/54
[2017-08-31 12:00] VITALS: BP 133/54
[2017-08-31] MEDS: HYDRALAZINE HCL 50MG TABLET PO SCH ×2 (13:54→21:14)
[2017-08-31 20:00] VITALS: BP 95/56
[2017-08-31] MEDS: ATORVASTATIN CALCIUM 40MG TABLET NG SCH (22:29)
[2017-09-01] VITALS: BP 132/85
[2017-09-01] MEDS: IPRATROPIUM/ALBUTEROL 0.5-3(2.5)MG/3ML NEB HHN SCH ×5 (00:58→20:40)
[2017-09-01] MEDS ORDERED: VANCOMYCIN 1 G PREMIX 200 ML IV SCH (02:00)
[2017-09-01 04:00] VITALS: BP 127/67
[2017-09-01] MEDS: PIPERACILLIN/TAZ 3.375G PREMIX 50 ML IV SCH (05:17)
[2017-09-01] MEDS: HYDRALAZINE HCL 50MG TABLET PO SCH ×3 (05:17→22:00)
[2017-09-01] MEDS: INSULIN LISPRO 100 UNITS/ML SUBCUT SCH ×4 (05:52→21:00)
[2017-09-01] MEDS: BLOOD SUGAR DIAGNOSTIC STRIP TEST SCH ×4 (05:52→21:00)
[2017-09-01 06:38] LABS: BASOPHILS % 0.5 % (0.0-2.0); EOSINOPHILS % 3.2 % (0.0-5.0); HEMOGLOBIN. 11.6 g/dL (14.0-18.0); LYMPHOCYTES % 15.7 % (20.0-50.0); MEAN CORPUSCULAR HEMOGLOBIN 29.6 pg (28.0-32.0); MEAN CORPUSCULAR VOLUME 87.1 fL (80.0-94.0); MONOCYTES % 8.4 % (2.0-8.0); NEUTROPHILS % 72.2 % (40.0-76.0); PLATELET 222 x1000/uL (130-400); RED BLOOD CELL COUNT 3.91 mill/uL (4.7-6.1); RED CELL DISTRIBUTION WIDTH 13.5 % (11.6-14.6)
[2017-09-01 08:00] VITALS: BP 161/67
[2017-09-01] MEDS: PANTOPRAZOLE SODIUM 40 MG/VIAL IV SCH ×2 (11:33→22:10)
[2017-09-01] MEDS: LORAZEPAM 2MG/ML CPJ IV PRN (11:33)
[2017-09-01] MEDS: LISINOPRIL 40MG TABLET NG SCH (11:55)
[2017-09-01] MEDS: HYDROCHLOROTHIAZIDE 25MG TABLET NG SCH ×2 (11:55→18:16)
[2017-09-01] MEDS: METFORMIN HCL 500MG TABLET NG SCH ×2 (11:55→18:16)
[2017-09-01] MEDS: CARVEDILOL 25MG TABLET NG SCH ×2 (11:56→21:00)
[2017-09-01] MEDS: DOCUSATE SODIUM 250MG CAPSULE PO SCH (11:56)
[2017-09-01] MEDS: AMLODIPINE 5MG TABLET NG SCH ×2 (11:56→21:00)
[2017-09-01 12:00] VITALS: BP 153/61
[2017-09-01] MEDS ORDERED: IPRATROPIUM/ALBUTEROL 0.5-3(2.5)MG/3ML NEB HHN PRN (15:15)
[2017-09-01 16:00] VITALS: BP 106/57
[2017-09-01 20:00] VITALS: BP 124/60
[2017-09-01] MEDS: ATORVASTATIN CALCIUM 40MG TABLET NG SCH (21:00)
[2017-09-02] VITALS: BP 129/57
[2017-09-02] MEDS: IPRATROPIUM/ALBUTEROL 0.5-3(2.5)MG/3ML NEB HHN SCH ×6 (00:22→21:52)
[2017-09-02] MEDS: LORAZEPAM 2MG/ML CPJ IV PRN ×2 (03:26→19:52)
[2017-09-02 04:00] VITALS: BP_SYST 107; BP_SYST 127; BP_DIAS 45; BP_DIAS 59
[2017-09-02] MEDS: HYDRALAZINE HCL 50MG TABLET PO SCH ×3 (06:00→21:17)
[2017-09-02] MEDS: BLOOD SUGAR DIAGNOSTIC STRIP TEST SCH ×4 (06:32→21:42)
[2017-09-02] MEDS: INSULIN LISPRO 100 UNITS/ML SUBCUT SCH ×4 (06:32→21:00)
[2017-09-02] MEDS: METFORMIN HCL 500MG TABLET NG SCH ×2 (06:32→17:15)
[2017-09-02 06:50] LABS: PARTIAL THROMBOPLASTIN TIME 26.9 sec (23.4-31.0); PROTHROMBIN TIME 10.9 sec (9.4-11.6)
[2017-09-02 08:00] VITALS: BP 105/62
[2017-09-02 08:42] LABS: BASOPHILS % 0.5 % (0.0-2.0); EOSINOPHILS % 3.8 % (0.0-5.0); HEMATOCRIT. 33.6 % (42.0-52.0); HEMOGLOBIN. 11.7 g/dL (14.0-18.0); LYMPHOCYTES % 22.2 % (20.0-50.0); MEAN CORPUSCULAR HEMOGLOBIN 30.2 pg (28.0-32.0); MEAN CORPUSCULAR VOLUME 86.8 fL (80.0-94.0); MONOCYTES % 8.4 % (2.0-8.0); NEUTROPHILS % 65.1 % (40.0-76.0); PLATELET 243 x1000/uL (130-400); RED BLOOD CELL COUNT 3.88 mill/uL (4.7-6.1); RED CELL DISTRIBUTION WIDTH 13.6 % (11.6-14.6)
[2017-09-02] MEDS: HYDROCHLOROTHIAZIDE 25MG TABLET NG SCH ×3 (09:00→17:00)
[2017-09-02] MEDS: LISINOPRIL 40MG TABLET NG SCH (09:00)
[2017-09-02] MEDS: CARVEDILOL 25MG TABLET NG SCH ×2 (09:00→21:17)
[2017-09-02] MEDS: DOCUSATE SODIUM 250MG CAPSULE PO SCH (09:00)
[2017-09-02] MEDS: AMLODIPINE 5MG TABLET NG SCH ×2 (09:00→21:17)
[2017-09-02 12:00] VITALS: BP 119/59
[2017-09-02] MEDS: PANTOPRAZOLE SODIUM 40 MG/VIAL IV SCH ×2 (13:47→21:16)
[2017-09-02] MEDS ORDERED: MIDAZOLAM HCL 5 MG/5 ML VIAL ONE (14:23)
[2017-09-02 16:00] VITALS: BP 133/57
[2017-09-02] MEDS ORDERED: CEFAZOLIN SODIUM 1000MG/VIAL IV ONE (17:30)
[2017-09-02] MEDS ORDERED: CEFAZOLIN 1000MG PREMIX 50 ML IV NR (19:00)
[2017-09-02 20:00] VITALS: BP 142/61
[2017-09-02] MEDS: QUETIAPINE FUMARATE 25MG TABLET PO SCH (21:16)
[2017-09-02] MEDS: ATORVASTATIN CALCIUM 40MG TABLET NG SCH (21:16)
[2017-09-03] VITALS: BP 137/54
[2017-09-03] MEDS: IPRATROPIUM/ALBUTEROL 0.5-3(2.5)MG/3ML NEB HHN SCH ×6 (01:03→20:55)
[2017-09-03 04:00] VITALS: BP 137/69
[2017-09-03] MEDS: BLOOD SUGAR DIAGNOSTIC STRIP TEST SCH ×4 (06:07→21:00)
[2017-09-03] MEDS: HYDRALAZINE HCL 50MG TABLET PO SCH ×3 (06:07→22:00)
[2017-09-03 06:38] LABS: BASOPHILS % 0.3 % (0.0-2.0); EOSINOPHILS % 0.8 % (0.0-5.0); HEMATOCRIT. 39.1 % (42.0-52.0); HEMOGLOBIN. 13.3 g/dL (14.0-18.0); MEAN CORPUSCULAR HEMOGLOBIN 29.6 pg (28.0-32.0); MEAN CORPUSCULAR VOLUME 87.3 fL (80.0-94.0); MEAN PLATELET VOLUME 9.2 fl (7.4-10.4); NEUTROPHILS % 77.9 % (40.0-76.0); PLATELET 274 x1000/uL (130-400); RED BLOOD CELL COUNT 4.48 mill/uL (4.7-6.1); RED CELL DISTRIBUTION WIDTH 13.4 % (11.6-14.6)
[2017-09-03] MEDS: METFORMIN HCL 500MG TABLET NG SCH ×2 (06:44→17:36)
[2017-09-03] MEDS: INSULIN LISPRO 100 UNITS/ML SUBCUT SCH ×4 (07:07→21:00)
[2017-09-03 08:00] VITALS: BP 124/52
[2017-09-03] MEDS ORDERED: CLOPIDOGREL 75MG TABLET GT SCH (09:00)
[2017-09-03] MEDS: PANTOPRAZOLE SODIUM 40 MG/VIAL IV SCH ×2 (09:24→22:35)
[2017-09-03] MEDS: DOCUSATE SODIUM 250MG CAPSULE PO SCH (09:24)
[2017-09-03] MEDS: HYDROCHLOROTHIAZIDE 25MG TABLET NG SCH ×3 (09:25→17:36)
[2017-09-03] MEDS: CARVEDILOL 25MG TABLET NG SCH ×3 (09:25→22:36)
[2017-09-03] MEDS: AMLODIPINE 5MG TABLET NG SCH ×3 (09:25→22:36)
[2017-09-03] MEDS: QUETIAPINE FUMARATE 25MG TABLET PO SCH ×2 (09:25→22:36)
[2017-09-03] MEDS: ENOXAPARIN 30MG/0.3ML SYR SUBCUT SCH ×2 (09:26→22:35)
[2017-09-03] MEDS: LISINOPRIL 40MG TABLET NG SCH (09:52)
[2017-09-03 12:00] VITALS: BP 114/56
[2017-09-03 15:53] LABS: PHOSPHORUS 4.2 mg/dL (2.5-4.9)
[2017-09-03 16:15] VITALS: BP 113/69
[2017-09-03 20:00] VITALS: BP 114/52
[2017-09-03] MEDS: ATORVASTATIN CALCIUM 40MG TABLET NG SCH ×2 (21:00→22:35)
[2017-09-04] VITALS (7 sets, daily range): BP systolic 101–161; BP diastolic 43–73
[2017-09-04] MEDS: IPRATROPIUM/ALBUTEROL 0.5-3(2.5)MG/3ML NEB HHN SCH ×6 (00:43→21:10)
[2017-09-04 04:56] LABS: CLARITY URINE TURBID (CLEAR); COLOR URINE YELLOW (YELLOW); KETONES URINE TRACE (NEGATIVE); LEUKOCYTE ESTERASE URINE TRACE (NEGATIVE); NITRITE URINE NEGATIVE (NEGATIVE); OCCULT BLOOD URINE 3+ (NEGATIVE); PH URINE 5.5 (4.5-8.0); PROTEIN URINE 3+ (NEGATIVE); SPECIFIC GRAVITY URINE 1.021 (1.005-1.030)
[2017-09-04] MEDS: HYDRALAZINE HCL 50MG TABLET PO SCH ×3 (06:00→21:16)
[2017-09-04] MEDS: BLOOD SUGAR DIAGNOSTIC STRIP TEST SCH ×4 (06:41→21:20)
[2017-09-04] MEDS: INSULIN LISPRO 100 UNITS/ML SUBCUT SCH ×4 (06:43→21:00)
[2017-09-04] MEDS: METFORMIN HCL 500MG TABLET NG SCH (07:15)
[2017-09-04] MEDS: ENOXAPARIN 30MG/0.3ML SYR SUBCUT SCH (09:00)
[2017-09-04] MEDS: AMLODIPINE 5MG TABLET NG SCH ×2 (09:00→21:00)
[2017-09-04] MEDS: HYDROCHLOROTHIAZIDE 25MG TABLET NG SCH (09:00)
[2017-09-04] MEDS: LISINOPRIL 40MG TABLET NG SCH (09:00)
[2017-09-04] MEDS: CARVEDILOL 25MG TABLET NG SCH ×2 (09:00→21:00)
[2017-09-04] MEDS: QUETIAPINE FUMARATE 25MG TABLET PO SCH ×2 (09:00→21:00)
[2017-09-04] MEDS: DOCUSATE SODIUM 250MG CAPSULE PO SCH (09:00)
[2017-09-04] MEDS: PANTOPRAZOLE SODIUM 40 MG/VIAL IV SCH ×2 (09:18→21:14)
[2017-09-04 12:11] LABS: BASOPHILS % 0.6 % (0.0-2.0); EOSINOPHILS % 1.6 % (0.0-5.0); HEMOGLOBIN. 12.6 g/dL (14.0-18.0); LYMPHOCYTES % 14.1 % (20.0-50.0); MEAN CORPUSCULAR HEMOGLOBIN 29.7 pg (28.0-32.0); MEAN CORPUSCULAR VOLUME 87.5 fL (80.0-94.0); NEUTROPHILS % 75.7 % (40.0-76.0); PLATELET 268 x1000/uL (130-400); RED BLOOD CELL COUNT 4.23 mill/uL (4.7-6.1)
[2017-09-04 12:29] LABS: CREATINE KINASE 114 IU/L (39-308)
[2017-09-04] MEDS: CEFTRIAXONE 1 G PREMIX 50 ML IV SCH (13:13)
[2017-09-04] MEDS: ATORVASTATIN CALCIUM 40MG TABLET NG SCH (21:00)
[2017-09-04] MEDS: LORAZEPAM 2MG/ML CPJ IV PRN (22:50)
[2017-09-05] VITALS (7 sets, daily range): BP systolic 101–167; BP diastolic 58–77
[2017-09-05] MEDS: IPRATROPIUM/ALBUTEROL 0.5-3(2.5)MG/3ML NEB HHN SCH ×5 (01:23→20:29)
[2017-09-05] MEDS: HYDRALAZINE HCL 50MG TABLET PO SCH ×2 (06:00→21:15)
[2017-09-05] MEDS: BLOOD SUGAR DIAGNOSTIC STRIP TEST SCH ×3 (06:01→20:55)
[2017-09-05] MEDS: INSULIN LISPRO 100 UNITS/ML SUBCUT SCH ×2 (06:02→21:14)
[2017-09-05 07:27] LABS: CHLORIDE 100 mEq/L (98-107)
[2017-09-05] MEDS: DOCUSATE SODIUM 250MG CAPSULE PO SCH (09:00)
[2017-09-05] MEDS: CARVEDILOL 25MG TABLET NG SCH ×2 (09:00→21:00)
[2017-09-05] MEDS: AMLODIPINE 5MG TABLET NG SCH ×2 (09:00→21:00)
[2017-09-05] MEDS: QUETIAPINE FUMARATE 25MG TABLET PO SCH ×2 (09:00→21:00)
[2017-09-05] MEDS: LISINOPRIL 40MG TABLET NG SCH (09:00)
[2017-09-05] MEDS: PANTOPRAZOLE SODIUM 40 MG/VIAL IV SCH ×2 (09:27→22:25)
[2017-09-05] MEDS: CEFTRIAXONE 1 G PREMIX 50 ML IV SCH (09:27)
[2017-09-05 10:34] LABS: BASOPHILS % 0.7 % (0.0-2.0); EOSINOPHILS % 1.6 % (0.0-5.0); HEMATOCRIT. 37.7 % (42.0-52.0); HEMOGLOBIN. 12.9 g/dL (14.0-18.0); MEAN CORPUSCULAR HEMOGLOBIN 29.9 pg (28.0-32.0); MEAN CORPUSCULAR VOLUME 87.2 fL (80.0-94.0); MEAN PLATELET VOLUME 9.1 fl (7.4-10.4); MONOCYTES % 6.5 % (2.0-8.0); NEUTROPHILS % 81.2 % (40.0-76.0); PLATELET 330 x1000/uL (130-400); RED BLOOD CELL COUNT 4.32 mill/uL (4.7-6.1); RED CELL DISTRIBUTION WIDTH 13.4 % (11.6-14.6)
[2017-09-05] MEDS ORDERED: STERILE WATER FOR INJECTION 10ML VIAL ONE (13:38)
[2017-09-05] MEDS ORDERED: MIDAZOLAM HCL 5 MG/5 ML VIAL ONE (15:39)
[2017-09-05] MEDS ORDERED: FENTANYL CITRATE/PF 50MCG/ML 2ML VIAL ONE (15:39)
[2017-09-05] MEDS ORDERED: MIDAZOLAM HCL 5 MG/5 ML VIAL IV PRN (15:50)
[2017-09-05] MEDS ORDERED: FENTANYL CITRATE/PF 50MCG/ML 2ML VIAL IV PRN (15:51)
[2017-09-05] MEDS: ATORVASTATIN CALCIUM 40MG TABLET NG SCH (21:00)
[2017-09-05] MEDS: LORAZEPAM 2MG/ML CPJ IV PRN (22:25)
[2017-09-06] VITALS (17 sets, daily range): BP systolic 123–160; BP diastolic 74–87
[2017-09-06] MEDS: IPRATROPIUM/ALBUTEROL 0.5-3(2.5)MG/3ML NEB HHN SCH ×5 (01:22→16:04)
[2017-09-06] MEDS: HYDRALAZINE HCL 50MG TABLET PO SCH ×2 (05:24→16:22)
[2017-09-06] MEDS: BLOOD SUGAR DIAGNOSTIC STRIP TEST SCH ×2 (06:08→13:10)
[2017-09-06] MEDS: INSULIN LISPRO 100 UNITS/ML SUBCUT SCH ×2 (06:31→13:20)
[2017-09-06] MEDS: DOCUSATE SODIUM 250MG CAPSULE PO SCH (09:00)
[2017-09-06] MEDS: AMLODIPINE 5MG TABLET NG SCH (09:00)
[2017-09-06] MEDS: CARVEDILOL 25MG TABLET NG SCH (09:00)
[2017-09-06] MEDS ORDERED: CLOPIDOGREL 75MG TABLET GT SCH (09:00)
[2017-09-06] MEDS: QUETIAPINE FUMARATE 25MG TABLET PO SCH (09:00)
[2017-09-06] MEDS: LISINOPRIL 40MG TABLET NG SCH (09:00)
[2017-09-06] MEDS: PANTOPRAZOLE SODIUM 40 MG/VIAL IV SCH (10:14)
[2017-09-06] MEDS: CEFTRIAXONE 1 G PREMIX 50 ML IV SCH (10:14)
[2017-09-06] MEDS ORDERED: LIDOCAINE HCL 1% 20ML VIAL (Pyxis) INJ ONE (10:30)
[2017-09-06] MEDS ORDERED: DIATR MEGLU/DIATRIZOATE SOLN 30ML ONE (10:30)
[2017-09-06] MEDS ORDERED: SODIUM BICARBONATE 4% (2.4MEQ) 5ML VIAL IV ONE (10:30)
[2017-09-06] MEDS ORDERED: LIDOCAINE HCL 2% JELLY 5ML ONE (10:30)
[2017-09-06] MEDS ORDERED: MIDAZOLAM HCL 2 MG/2 ML VIAL ONE (11:24)
[2017-09-06] MEDS ORDERED: FENTANYL CITRATE/PF 50MCG/ML 2ML VIAL ONE (11:25)
[2017-09-06] MEDS ORDERED: FENTANYL CITRATE/PF 50MCG/ML 2ML VIAL IV ONE (11:45)
== END 2017-09-06 17:05 | DRG 871 ==
LOC: ER 11:03 → 5WST 18:27 → EDBEDREQ 18:30 → EDBEDREQTM 18:30 → ENRESERV 19:45 → 5WST 09-02 15:15
PROVIDERS: ADMIT Internal Medicine; ATTEND Internal Medicine
PROC: 4A00X4Z Measurement of Central Nervous Electrical Activity, External Approach (ICD-10-PCS; principal; 2017-08-31)
PROC: 0DH63UZ Insertion of Feeding Device into Stomach, Percutaneous Approach (ICD-10-PCS; 2017-09-02)
PROC: 0D20XUZ Change Feeding Device in Upper Intestinal Tract, External Approach (ICD-10-PCS; 2017-09-05)
DX: A41.9 Sepsis, unspecified organism (principal); I50.23 Acute on chronic systolic (congestive) heart failure; I63.9 Cerebral infarction, unspecified; G82.50 Quadriplegia, unspecified; G93.40 Encephalopathy, unspecified; L89.159 Pressure ulcer of sacral region, unspecified stage; E46 Unspecified protein-calorie malnutrition; L89.309 Pressure ulcer of unspecified buttock, unspecified stage; N17.9 Acute kidney failure, unspecified; K22.10 Ulcer of esophagus without bleeding; I69.354 Hemiplegia and hemiparesis following cerebral infarction affecting left non-dominant side; I69.351 Hemiplegia and hemiparesis following cerebral infarction affecting right dominant side; I11.0 Hypertensive heart disease with heart failure; E66.9 Obesity, unspecified; E78.00 Pure hypercholesterolemia, unspecified; E78.5 Hyperlipidemia, unspecified; K21.9 Gastro-esophageal reflux disease without esophagitis; N40.0 Benign prostatic hyperplasia without lower urinary tract symptoms; E11.9 Type 2 diabetes mellitus without complications; D64.9 Anemia, unspecified; R13.12 Dysphagia, oropharyngeal phase; R62.7 Adult failure to thrive; K29.70 Gastritis, unspecified, without bleeding; K44.9 Diaphragmatic hernia without obstruction or gangrene; I69.320 Aphasia following cerebral infarction; Z79.899 Other long term (current) drug therapy; Z87.440 Personal history of urinary (tract) infections; Z21 Asymptomatic human immunodeficiency virus [HIV] infection status
CPT/HCPCS: 36415; 49450; 70450; 70496; 70551; 71045; 76770; 80048; 80053; 80061; 80202; 80305; 81003; 82140; 82550; 82570; 82962; 83036; 83735; 83880; 84100; 84145; 84156; 84484; 85025; 85610; 85730; 86141; 86705; 86709; 86803; 87040; 87086; 87186; 87340; 92610; 93005; 93306; 93880; 94640; 94644; 96361; 96374; 97112; 97116; 97163; 97166; 97530; 99285; A4216; A6261; C1725; C1769; C9113; J0360; J0690; J0696; J1650; J1815; J2060; J2250; J2405; J2543; J3010; J3370; J3490; J7030; J7040; J7050; J7060; J7620; L8514; Q9963; Q9967

== ENCOUNTER 2018-04-10 12:09 | Inpatient (IN) | payer MEDICARE, MEDICAID ==
[~2018-04-10] VITALS: Ht 165.1 cm; Wt 68.9 kg
[~2018-04-10 12:09] MED LIST changes: -FURO20TA4 PO; -GLIP5TAB12 PO; -IBUP-2030 PO; -METF10002 PO; -TAMS-11 PO
[2018-04-10] MEDS ORDERED: SODIUM CHLORIDE 0.9% 1000ML BAG (SEPSIS BOLUS) IV ONE (14:00)
[2018-04-10 14:37] LABS: BASOPHILS % 0.5 % (0.0-2.0); EOSINOPHILS % 0.3 % (0.0-5.0); HEMATOCRIT. 30.6 % (42.0-52.0); HEMOGLOBIN. 10.1 g/dL (14.0-18.0); LYMPHOCYTES % 17.1 % (20.0-50.0); MEAN CORPUSCULAR HEMOGLOBIN 30.8 pg (28.0-32.0); MEAN CORPUSCULAR VOLUME 93.2 fL (80.0-94.0); MEAN PLATELET VOLUME 11.5 fl (7.4-10.4); MONOCYTES % 9.3 % (2.0-8.0); NEUTROPHILS % 72.8 % (40.0-76.0); PLATELET 236 x1000/uL (130-400); RED BLOOD CELL COUNT 3.28 mill/uL (4.7-6.1); RED CELL DISTRIBUTION WIDTH 15.6 % (11.6-14.6)
[2018-04-10 14:38] LABS: INR 1.1; PROTHROMBIN TIME 11.1 sec (9.1-11.1)
[2018-04-10 14:50] LABS: CHLORIDE 107 mEq/L (98-107)
[2018-04-10 14:57] LABS: CLARITY URINE TURBID (CLEAR); COLOR URINE YELLOW (YELLOW); KETONES URINE NEGATIVE (NEGATIVE); LEUKOCYTE ESTERASE URINE 3+ (NEGATIVE); NITRITE URINE NEGATIVE (NEGATIVE); OCCULT BLOOD URINE 3+ (NEGATIVE); PROTEIN URINE 1+ (NEGATIVE); SPECIFIC GRAVITY URINE 1.022 (1.005-1.030); UROBILINOGEN URINE 0.2 E.U./dL (0.2-1.0)
[2018-04-10] MEDS ORDERED: IOHEXOL-300 100 ML BOTTLE ONE (16:18)
[2018-04-11] VITALS (7 sets, daily range): BP systolic 96–118; BP diastolic 50–62
[2018-04-11] MEDS ORDERED: FE300LUD GT (02:09)
[2018-04-11] MEDS ORDERED: ONDA4TAB50 GT (02:09)
[2018-04-11] MEDS ORDERED: LEVVL SQ (02:09)
[2018-04-11] MEDS ORDERED: BISA10SU62 RC (02:09)
[2018-04-11] MEDS ORDERED: ALBU05 IH ×2 (02:09)
[2018-04-11] MEDS ORDERED: LACT1TAB11 GT (02:09)
[2018-04-11] MEDS ORDERED: ACET-2128 GT (02:09)
[2018-04-11] MEDS ORDERED: CHOL100022 GT ×2 (02:09)
[2018-04-11] MEDS ORDERED: ACETYLCYSTEINE 10% HHN (02:09)
[2018-04-11] MEDS ORDERED: ACET-2853 GT (02:09)
[2018-04-11] MEDS ORDERED: OR220 GT (02:09)
[2018-04-11] MEDS ORDERED: FAMO20TA8 GT (02:09)
[2018-04-11] MEDS ORDERED: DOCU-138 GT (02:09)
[2018-04-11] MEDS ORDERED: MULT-379 GT (02:09)
[2018-04-11] MEDS ORDERED: CLON-457 GT (02:09)
[2018-04-11] MEDS ORDERED: METO-539 GT (02:09)
[2018-04-11] MEDS ORDERED: FURO20TA4 GT (02:09)
[2018-04-11] MEDS ORDERED: MORPHINE SULFATE 10MG/5ML ORAL SOLN UDC GT PRN ×2 (04:30)
[2018-04-11] MEDS ORDERED: DEXTROSE 50% WATER 50ML SYRINGE IV PRN (04:30)
[2018-04-11] MEDS ORDERED: CEFTRIAXONE 1 G PREMIX 50 ML IV SCH (04:30)
[2018-04-11] MEDS ORDERED: ACETAMINOPHEN 650MG/20.3ML UDC GT PRN (04:30)
[2018-04-11] MEDS ORDERED: IPRATROPIUM/ALBUTEROL 0.5-3(2.5)MG/3ML NEB HHN PRN (04:30)
[2018-04-11] MEDS: CEFTRIAXONE 1 G PREMIX 50 ML IV SCH (05:41)
[2018-04-11] MEDS: BLOOD SUGAR DIAGNOSTIC STRIP TEST SCH ×4 (07:20→21:29)
[2018-04-11 10:24] LABS: BASOPHILS % 0.4 % (0.0-2.0); EOSINOPHILS % 0.6 % (0.0-5.0); HEMATOCRIT. 27.9 % (42.0-52.0); HEMOGLOBIN. 9.1 g/dL (14.0-18.0); LYMPHOCYTES % 12.2 % (20.0-50.0); MEAN CORPUSCULAR HEMOGLOBIN 30.7 pg (28.0-32.0); MEAN CORPUSCULAR VOLUME 93.6 fL (80.0-94.0); MEAN PLATELET VOLUME 10.7 fl (7.4-10.4); MONOCYTES % 6.5 % (2.0-8.0); NEUTROPHILS % 80.3 % (40.0-76.0); PLATELET 190 x1000/uL (130-400); RED BLOOD CELL COUNT 2.98 mill/uL (4.7-6.1); RED CELL DISTRIBUTION WIDTH 15.6 % (11.6-14.6)
[2018-04-11 10:35] LABS: CHLORIDE 114 mEq/L (98-107)
[2018-04-11] MEDS: DEXT 5%/0.45% NACL 1000ML 1,000 ML IV SCH (13:45)
[2018-04-11] MEDS: METOPROLOL TARTRATE 25MG TABLET PO SCH (21:00)
[2018-04-11] MEDS ORDERED: INSULIN DETEMIR 17 UNIT SQ SCH (21:00)
[2018-04-11] MEDS: IPRATROPIUM/ALBUTEROL 0.5-3(2.5)MG/3ML NEB HHN SCH (21:25)
[2018-04-11] MEDS: INSULIN GLARGINE UD 100 UNITS/ML SYR SUBCUT SCH (22:56)
[2018-04-12] MEDS: DEXT 5%/0.45% NACL 1000ML 1,000 ML IV SCH ×3 (00:27→23:00)
[2018-04-12 00:30] VITALS: BP 115/55
[2018-04-12] MEDS: IPRATROPIUM/ALBUTEROL 0.5-3(2.5)MG/3ML NEB HHN SCH ×3 (01:25→21:40)
[2018-04-12 04:35] VITALS: BP 122/56
[2018-04-12] MEDS: CEFTRIAXONE 1 G PREMIX 50 ML IV SCH (05:36)
[2018-04-12] MEDS: BLOOD SUGAR DIAGNOSTIC STRIP TEST SCH ×4 (06:26→21:06)
[2018-04-12 06:38] LABS: BASOPHILS % 0.4 % (0.0-2.0); EOSINOPHILS % 2.6 % (0.0-5.0); HEMATOCRIT. 24.2 % (42.0-52.0); HEMOGLOBIN. 8.2 g/dL (14.0-18.0); LYMPHOCYTES % 16.9 % (20.0-50.0); MEAN CORPUSCULAR HEMOGLOBIN 31.3 pg (28.0-32.0); MEAN CORPUSCULAR VOLUME 92.6 fL (80.0-94.0); MEAN PLATELET VOLUME 10.9 fl (7.4-10.4); MONOCYTES % 7.1 % (2.0-8.0); PLATELET 181 x1000/uL (130-400); RED BLOOD CELL COUNT 2.61 mill/uL (4.7-6.1); RED CELL DISTRIBUTION WIDTH 15.1 % (11.6-14.6)
[2018-04-12 07:11] LABS: CHLORIDE 118 mEq/L (98-107)
[2018-04-12 08:00] VITALS: BP 122/53
[2018-04-12] MEDS: METOPROLOL TARTRATE 25MG TABLET PO SCH ×2 (09:47→21:07)
[2018-04-12 12:00] VITALS: BP 123/78
[2018-04-12 16:05] VITALS: BP 126/51
[2018-04-12 20:21] VITALS: BP 131/48
[2018-04-12] MEDS: NITROFURANTOIN 100MG M/M CAPSULE PO SCH (21:07)
[2018-04-12] MEDS: INSULIN GLARGINE UD 100 UNITS/ML SYR SUBCUT SCH (22:29)
[2018-04-13 00:08] VITALS: BP 131/48
[2018-04-13] MEDS: IPRATROPIUM/ALBUTEROL 0.5-3(2.5)MG/3ML NEB HHN SCH ×4 (02:05→20:54)
[2018-04-13 04:00] VITALS: BP 152/62
[2018-04-13] MEDS: CEFTRIAXONE 1 G PREMIX 50 ML IV SCH (05:34)
[2018-04-13] MEDS: BLOOD SUGAR DIAGNOSTIC STRIP TEST SCH ×4 (06:26→21:14)
[2018-04-13 08:00] VITALS: BP 140/61
[2018-04-13] MEDS: METOPROLOL TARTRATE 25MG TABLET PO SCH ×2 (08:53→21:14)
[2018-04-13] MEDS: NITROFURANTOIN 100MG M/M CAPSULE PO SCH ×2 (08:53→21:14)
[2018-04-13] MEDS: DEXT 5%/0.45% NACL 1000ML 1,000 ML IV SCH (08:53)
[2018-04-13 10:56] LABS: BASOPHILS % 0.4 % (0.0-2.0); EOSINOPHILS % 4.2 % (0.0-5.0); HEMATOCRIT. 24.9 % (42.0-52.0); HEMOGLOBIN. 8.3 g/dL (14.0-18.0); LYMPHOCYTES % 19.6 % (20.0-50.0); MEAN CORPUSCULAR HEMOGLOBIN 31.4 pg (28.0-32.0); MEAN CORPUSCULAR VOLUME 94.1 fL (80.0-94.0); MEAN PLATELET VOLUME 10.2 fl (7.4-10.4); MONOCYTES % 5.7 % (2.0-8.0); NEUTROPHILS % 70.1 % (40.0-76.0); PLATELET 184 x1000/uL (130-400); RED BLOOD CELL COUNT 2.64 mill/uL (4.7-6.1); RED CELL DISTRIBUTION WIDTH 14.9 % (11.6-14.6)
[2018-04-13 10:58] LABS: CHLORIDE 114 mEq/L (98-107)
[2018-04-13 12:00] VITALS: BP 126/60
[2018-04-13 16:00] VITALS: BP 138/54
[2018-04-13 20:00] VITALS: BP 144/63
[2018-04-13] MEDS: INSULIN GLARGINE UD 100 UNITS/ML SYR SUBCUT SCH (21:15)
[2018-04-14] VITALS: BP 142/74
[2018-04-14] MEDS: IPRATROPIUM/ALBUTEROL 0.5-3(2.5)MG/3ML NEB HHN SCH ×3 (04:20→19:57)
[2018-04-14 04:44] VITALS: BP 136/78
[2018-04-14] MEDS: DEXT 5%/0.45% NACL 1000ML 1,000 ML IV SCH ×3 (04:53→18:36)
[2018-04-14] MEDS: CEFTRIAXONE 1 G PREMIX 50 ML IV SCH (05:42)
[2018-04-14 07:22] LABS: CHLORIDE 114 mEq/L (98-107)
[2018-04-14 07:24] LABS: BASOPHILS % 0.2 % (0.0-2.0); EOSINOPHILS % 1.7 % (0.0-5.0); HEMATOCRIT. 31.5 % (42.0-52.0); HEMOGLOBIN. 10.2 g/dL (14.0-18.0); MEAN CORPUSCULAR HEMOGLOBIN 30.5 pg (28.0-32.0); MEAN CORPUSCULAR VOLUME 94.2 fL (80.0-94.0); MEAN PLATELET VOLUME 10.4 fl (7.4-10.4); MONOCYTES % 4.4 % (2.0-8.0); NEUTROPHILS % 81.7 % (40.0-76.0); PLATELET 237 x1000/uL (130-400); RED BLOOD CELL COUNT 3.35 mill/uL (4.7-6.1); RED CELL DISTRIBUTION WIDTH 14.7 % (11.6-14.6)
[2018-04-14] MEDS: BLOOD SUGAR DIAGNOSTIC STRIP TEST SCH ×4 (07:33→21:52)
[2018-04-14] MEDS: METOPROLOL TARTRATE 25MG TABLET PO SCH ×2 (07:49→21:00)
[2018-04-14] MEDS: NITROFURANTOIN 100MG M/M CAPSULE PO SCH ×2 (07:49→21:00)
[2018-04-14 08:00] VITALS: BP 117/50
[2018-04-14 12:00] VITALS: BP 112/56
[2018-04-14 16:00] VITALS: BP 118/60
[2018-04-14 17:23] LABS: BASOPHILS % 0.6 % (0.0-2.0); HEMOGLOBIN. 8.7 g/dL (14.0-18.0); LYMPHOCYTES % 12.4 % (20.0-50.0); MEAN CORPUSCULAR HEMOGLOBIN 30.7 pg (28.0-32.0); MONOCYTES % 3.8 % (2.0-8.0); NEUTROPHILS % 82.2 % (40.0-76.0); PLATELET 197 x1000/uL (130-400); RED BLOOD CELL COUNT 2.83 mill/uL (4.7-6.1); RED CELL DISTRIBUTION WIDTH 14.8 % (11.6-14.6)
[2018-04-14 17:26] LABS: CHLORIDE 111 mEq/L (98-107)
[2018-04-14 19:57] VITALS: BP 133/64
[2018-04-14] MEDS: INSULIN GLARGINE UD 100 UNITS/ML SYR SUBCUT SCH (22:00)
[2018-04-15] VITALS: BP 122/66
[2018-04-15] MEDS ORDERED: SODIUM CHLORIDE 10% FOR INH 15ML VIAL NEB INH SCH (00:15)
[2018-04-15] MEDS: IPRATROPIUM/ALBUTEROL 0.5-3(2.5)MG/3ML NEB HHN SCH ×4 (00:24→22:12)
[2018-04-15] MEDS: DEXT 5%/0.45% NACL 1000ML 1,000 ML IV SCH (02:07)
[2018-04-15] MEDS: MEROPENEM 1,000 MG in SODIUM CHLORIDE 0.9% 100 ML IV SCH ×3 (02:09→22:00)
[2018-04-15] MEDS: CEFAZOLIN 1000MG PREMIX 50 ML IV SCH ×2 (02:13→10:24)
[2018-04-15 04:00] VITALS: BP 120/77
[2018-04-15] MEDS: BLOOD SUGAR DIAGNOSTIC STRIP TEST SCH ×4 (06:19→21:24)
[2018-04-15 07:36] LABS: BASOPHILS % 0.6 % (0.0-2.0); EOSINOPHILS % 2.5 % (0.0-5.0); HEMATOCRIT. 27.2 % (42.0-52.0); HEMOGLOBIN. 9.1 g/dL (14.0-18.0); LYMPHOCYTES % 17.6 % (20.0-50.0); MEAN CORPUSCULAR HEMOGLOBIN 30.6 pg (28.0-32.0); MEAN CORPUSCULAR VOLUME 91.8 fL (80.0-94.0); MONOCYTES % 3.5 % (2.0-8.0); NEUTROPHILS % 75.8 % (40.0-76.0); RED BLOOD CELL COUNT 2.97 mill/uL (4.7-6.1); RED CELL DISTRIBUTION WIDTH 14.6 % (11.6-14.6)
[2018-04-15 07:44] LABS: CLARITY URINE CLEAR (CLEAR); COLOR URINE YELLOW (YELLOW); KETONES URINE TRACE (NEGATIVE); LEUKOCYTE ESTERASE URINE TRACE (NEGATIVE); NITRITE URINE NEGATIVE (NEGATIVE); OCCULT BLOOD URINE 1+ (NEGATIVE); PROTEIN URINE 1+ (NEGATIVE); SPECIFIC GRAVITY URINE 1.027 (1.005-1.030); UROBILINOGEN URINE 0.2 E.U./dL (0.2-1.0)
[2018-04-15 07:52] VITALS: BP 123/55
[2018-04-15 08:02] LABS: CHLORIDE 109 mEq/L (98-107)
[2018-04-15] MEDS ORDERED: SCOPOLAMINE HYDROBROMIDE PATCH 72HR TD SCH (09:00)
[2018-04-15 09:50] LABS: MEAN PLATELET VOLUME 10.5 fl (7.4-10.4); PLATELET 202 x1000/uL (130-400)
[2018-04-15] MEDS: METOPROLOL TARTRATE 25MG TABLET PO SCH ×2 (10:24→21:00)
[2018-04-15] MEDS ORDERED: GUAIFENESIN-DM 200MG-20MG/10ML UDC PO PRN (11:15)
[2018-04-15 11:41] VITALS: BP 119/71
[2018-04-15 15:55] VITALS: BP 127/60
[2018-04-15 20:00] VITALS: BP 105/66
[2018-04-15] MEDS: INSULIN GLARGINE UD 100 UNITS/ML SYR SUBCUT SCH (22:01)
[2018-04-16] VITALS: BP 137/69
[2018-04-16] MEDS: IPRATROPIUM/ALBUTEROL 0.5-3(2.5)MG/3ML NEB HHN SCH ×2 (03:39→22:18)
[2018-04-16 04:00] VITALS: BP 114/54
[2018-04-16] MEDS: MEROPENEM 1,000 MG in SODIUM CHLORIDE 0.9% 100 ML IV SCH ×3 (04:12→18:16)
[2018-04-16] MEDS: BLOOD SUGAR DIAGNOSTIC STRIP TEST SCH ×3 (06:58→21:04)
[2018-04-16] MEDS: METOPROLOL TARTRATE 25MG TABLET PO SCH ×2 (09:09→21:28)
[2018-04-16 09:23] LABS: BASOPHILS % 0.5 % (0.0-2.0); EOSINOPHILS % 2.3 % (0.0-5.0); HEMATOCRIT. 25.2 % (42.0-52.0); HEMOGLOBIN. 8.4 g/dL (14.0-18.0); LYMPHOCYTES % 13.8 % (20.0-50.0); MEAN CORPUSCULAR HEMOGLOBIN 30.7 pg (28.0-32.0); MEAN CORPUSCULAR VOLUME 91.9 fL (80.0-94.0); MEAN PLATELET VOLUME 9.6 fl (7.4-10.4); MONOCYTES % 4.4 % (2.0-8.0); PLATELET 226 x1000/uL (130-400); RED BLOOD CELL COUNT 2.74 mill/uL (4.7-6.1); RED CELL DISTRIBUTION WIDTH 14.8 % (11.6-14.6)
[2018-04-16 09:38] LABS: CHLORIDE 111 mEq/L (98-107)
[2018-04-16 11:48] VITALS: BP 134/59
[2018-04-16 16:02] VITALS: BP 133/67
[2018-04-16 16:35] VITALS: BP 111/67
[2018-04-16 20:00] VITALS: BP 137/77
[2018-04-16] MEDS: INSULIN GLARGINE UD 100 UNITS/ML SYR SUBCUT SCH (21:29)
== END 2018-04-16 23:27 | DRG 871 ==
LOC: ER 12:15 → 6WST 19:21 → EDBEDREQTM 19:41 → EDBEDREQSVC 19:41 → EDBEDREQ 19:41 → ENRESERV 22:50
PROVIDERS: ADMIT Specialist; ATTEND Specialist
DX: A41.51 Sepsis due to Escherichia coli [E. coli] (principal); J18.1 Lobar pneumonia, unspecified organism; N39.0 Urinary tract infection, site not specified; J96.10 Chronic respiratory failure, unspecified whether with hypoxia or hypercapnia; Z99.11 Dependence on respirator [ventilator] status; E44.0 Moderate protein-calorie malnutrition; I69.351 Hemiplegia and hemiparesis following cerebral infarction affecting right dominant side; E87.0 Hyperosmolality and hypernatremia; I13.0 Hypertensive heart and chronic kidney disease with heart failure and stage 1 through stage 4 chronic kidney disease, or unspecified chronic kidney disease; I50.32 Chronic diastolic (congestive) heart failure; E11.22 Type 2 diabetes mellitus with diabetic chronic kidney disease; Z93.1 Gastrostomy status; E78.5 Hyperlipidemia, unspecified; B96.4 Proteus (mirabilis) (morganii) as the cause of diseases classified elsewhere; D64.9 Anemia, unspecified; E78.00 Pure hypercholesterolemia, unspecified; E83.41 Hypermagnesemia; N18.9 Chronic kidney disease, unspecified; R13.10 Dysphagia, unspecified; Z93.0 Tracheostomy status; Z88.8 Allergy status to other drugs, medicaments and biological substances
CPT/HCPCS: 36415; 71045; 74177; 80048; 82270; 82962; 83036; 83605; 83735; 83880; 84145; 84443; 84484; 87070; 87077; 87186; 93005; 93970; 94640; 96360; 96361; 99285; C1893; J0690; J0696; J1815; J2185; J3490; J7030; J7050; J7620; Q9967; A4315

== ENCOUNTER 2018-04-23 10:52 | Inpatient (IN) | payer MEDICARE, MEDICAID ==
[~2018-04-23] VITALS: Ht 165.1 cm; Wt 66.7 kg
[~2018-04-23 10:52] MED LIST changes: +ACET-2128 GT; +ACET-2853 GT; +ACETYLCYSTEINE 10% HHN; +ALBU05 IH; -ATOR10TA PO; +BISA10SU62 RC; -CARV25TA47 PO; +CHOL100022 GT; +CLON-457 GT; +DOCU-138 GT; +FAMO20TA8 GT; +FE300LUD GT; +FURO20TA4 GT; -HYDR25TA PO; +LACT1TAB11 GT; +LEVVL SQ; +METO-539 GT; +MULT-379 GT; +ONDA4TAB50 GT; +OR220 GT
[2018-04-23] MEDS ORDERED: PANTOPRAZOLE SODIUM 40 MG/VIAL IV STA (11:46)
[2018-04-23] MEDS ORDERED: PANTOPRAZOLE 80 MG in SODIUM CHLORIDE 0.9% 100 ML IV STA (11:46)
[2018-04-23] MEDS ORDERED: SODIUM CHLORIDE 0.9% 1000ML BAG (SEPSIS BOLUS) IV ONE (12:00)
[2018-04-23] MEDS ORDERED: VANCOMYCIN 1 G PREMIX 200 ML IV SCH (13:45)
[2018-04-23] MEDS ORDERED: PIPERACILLIN/TAZ 3.375G PREMIX 50 ML IV ONE (13:45)
[2018-04-23 14:57] LABS: BASOPHILS % 0.8 % (0.0-2.0); CHLORIDE 104 mEq/L (98-107); EOSINOPHILS % 2.3 % (0.0-5.0); HEMATOCRIT. 30.6 % (42.0-52.0); HEMOGLOBIN. 10.3 g/dL (14.0-18.0); LYMPHOCYTES % 19.5 % (20.0-50.0); MEAN CORPUSCULAR HEMOGLOBIN 31.3 pg (28.0-32.0); MEAN CORPUSCULAR VOLUME 92.8 fL (80.0-94.0); MEAN PLATELET VOLUME 9.4 fl (7.4-10.4); MONOCYTES % 6.8 % (2.0-8.0); NEUTROPHILS % 70.6 % (40.0-76.0); PLATELET 278 x1000/uL (130-400); RED CELL DISTRIBUTION WIDTH 15.7 % (11.6-14.6)
[2018-04-23 15:01] LABS: INR 1.1; PROTHROMBIN TIME 11.1 sec (9.1-11.1)
[2018-04-23] MEDS ORDERED: IPRATROPIUM/ALBUTEROL 0.5-3(2.5)MG/3ML NEB HHN PRN (16:00)
[2018-04-23] MEDS ORDERED: CLONIDINE 0.1MG TABLET PO PRN (16:30)
[2018-04-23] MEDS ORDERED: MAGNESIUM/ALUMINUM HYDROXIDE/SIMETHICONE 30ML UDC PO PRN (16:30)
[2018-04-23] MEDS ORDERED: DEXTROSE 50% WATER 50ML SYRINGE IV PRN (16:30)
[2018-04-23] MEDS ORDERED: DOCUSATE SODIUM 100MG CAPSULE PO PRN (16:30)
[2018-04-23 17:00] VITALS: BP 115/71
[2018-04-23] MEDS: DEXT 5%/0.9% NACL 1,000 ML IV SCH (18:39)
[2018-04-23 20:00] VITALS: BP 124/53
[2018-04-23] MEDS: IPRATROPIUM/ALBUTEROL 0.5-3(2.5)MG/3ML NEB HHN SCH (20:36)
[2018-04-23] MEDS: PANTOPRAZOLE SODIUM 40 MG/VIAL IV SCH (21:00)
[2018-04-23] MEDS: METOPROLOL TARTRATE 25MG TABLET PO SCH (21:00)
[2018-04-24] VITALS: BP 132/56
[2018-04-24] MEDS: IPRATROPIUM/ALBUTEROL 0.5-3(2.5)MG/3ML NEB HHN SCH ×4 (01:36→20:28)
[2018-04-24 04:00] VITALS: BP 110/39
[2018-04-24 05:58] LABS: INR 1.1; PARTIAL THROMBOPLASTIN TIME 26.8 sec (23.4-31.0); PROTHROMBIN TIME 11.4 sec (9.1-11.1)
[2018-04-24] MEDS ORDERED: NA P230E RC (05:58)
[2018-04-24] MEDS ORDERED: MOM MT (05:58)
[2018-04-24] MEDS ORDERED: FRUC15LI PO (06:01)
[2018-04-24] MEDS ORDERED: METO25TA6 MT (06:01)
[2018-04-24] MEDS ORDERED: SCOP1PAT10 TP (06:01)
[2018-04-24] MEDS ORDERED: CHLO473M2 MT (06:02)
[2018-04-24] MEDS ORDERED: ASCO500C15 MT (06:03)
[2018-04-24] MEDS ORDERED: SAW/1TAB2 PO (06:04)
[2018-04-24] MEDS ORDERED: CRAN3875 PO (06:04)
[2018-04-24] MEDS ORDERED: HYDR-4001 MT (06:06)
[2018-04-24 06:19] LABS: EOSINOPHILS % 4.1 % (0.0-5.0); HEMATOCRIT. 27.5 % (42.0-52.0); HEMOGLOBIN. 9.1 g/dL (14.0-18.0); MEAN CORPUSCULAR HEMOGLOBIN 30.8 pg (28.0-32.0); MEAN CORPUSCULAR VOLUME 93.4 fL (80.0-94.0); MEAN PLATELET VOLUME 9.5 fl (7.4-10.4); MONOCYTES % 7.6 % (2.0-8.0); NEUTROPHILS % 66.3 % (40.0-76.0); PLATELET 241 x1000/uL (130-400); RED BLOOD CELL COUNT 2.95 mill/uL (4.7-6.1); RED CELL DISTRIBUTION WIDTH 15.3 % (11.6-14.6)
[2018-04-24 06:30] LABS: CHLORIDE 108 mEq/L (98-107)
[2018-04-24 06:46] LABS: PHOSPHORUS 2.4 mg/dL (2.5-4.9)
[2018-04-24] MEDS: DEXT 5%/0.9% NACL 1,000 ML IV SCH ×2 (06:54→22:24)
[2018-04-24] MEDS: METOPROLOL TARTRATE 25MG TABLET PO SCH ×2 (09:00→20:56)
[2018-04-24] MEDS: PANTOPRAZOLE SODIUM 40 MG/VIAL IV SCH ×2 (10:16→21:05)
[2018-04-24 11:59] VITALS: BP 117/46
[2018-04-24] MEDS ORDERED: SODIUM CHLORIDE 0.9% 10ML VIAL ONE (14:37)
[2018-04-24] MEDS ORDERED: MIDAZOLAM HCL 5 MG/5 ML VIAL IV PRN (15:44)
[2018-04-24] MEDS ORDERED: SIMETHICONE 40 MG/0.6 ML 30ML ONE (15:50)
[2018-04-24] MEDS ORDERED: MIDAZOLAM HCL 5 MG/5 ML VIAL ONE (15:50)
[2018-04-24] MEDS ORDERED: FENTANYL CITRATE/PF 50MCG/ML 2ML VIAL ONE (15:51)
[2018-04-24 16:00] VITALS: BP 100/43
[2018-04-24 20:00] VITALS: BP 98/59
[2018-04-25] VITALS: BP 147/58
[2018-04-25] MEDS: IPRATROPIUM/ALBUTEROL 0.5-3(2.5)MG/3ML NEB HHN SCH ×5 (02:21→21:46)
[2018-04-25 04:00] VITALS: BP 127/55
[2018-04-25 06:41] LABS: BASOPHILS % 0.7 % (0.0-2.0); EOSINOPHILS % 3.3 % (0.0-5.0); HEMATOCRIT. 28.9 % (42.0-52.0); HEMOGLOBIN. 9.7 g/dL (14.0-18.0); LYMPHOCYTES % 24.8 % (20.0-50.0); MEAN CORPUSCULAR HEMOGLOBIN 31.2 pg (28.0-32.0); MEAN CORPUSCULAR VOLUME 93.2 fL (80.0-94.0); MEAN PLATELET VOLUME 9.8 fl (7.4-10.4); NEUTROPHILS % 66.2 % (40.0-76.0); PLATELET 234 x1000/uL (130-400); RED CELL DISTRIBUTION WIDTH 14.7 % (11.6-14.6)
[2018-04-25 08:00] VITALS: BP 114/51
[2018-04-25 08:02] LABS: CHLORIDE 110 mEq/L (98-107)
[2018-04-25] MEDS: METOPROLOL TARTRATE 25MG TABLET PO SCH ×2 (10:16→22:48)
[2018-04-25 12:00] VITALS: BP 118/71
[2018-04-25] MEDS: ACETYLCYSTEINE 100MG/ML 10% VIAL 4ML INH SCH (15:14)
[2018-04-25 16:00] VITALS: BP 124/60
[2018-04-25 20:00] VITALS: BP 156/70
[2018-04-26] VITALS: BP 150/84
[2018-04-26] MEDS: IPRATROPIUM/ALBUTEROL 0.5-3(2.5)MG/3ML NEB HHN SCH ×5 (00:38→16:24)
[2018-04-26] MEDS: ACETYLCYSTEINE 100MG/ML 10% VIAL 4ML INH SCH ×3 (00:38→16:24)
[2018-04-26 04:00] VITALS: BP 165/78
[2018-04-26 08:00] VITALS: BP 151/77
[2018-04-26] MEDS: METOPROLOL TARTRATE 25MG TABLET PO SCH (09:18)
[2018-04-26 12:00] VITALS: BP 147/73
[2018-04-26 16:00] VITALS: BP 142/56
[2018-04-26 17:55] VITALS: BP 142/56
== END 2018-04-26 20:50 | DRG 380 ==
LOC: ER 10:52 → 8WST 15:16 → EDBEDREQ 15:27 → EDBEDREQTM 15:27 → ENRESERV 15:29 → EDBEDREQ 15:38
PROVIDERS: ADMIT Specialist; ATTEND Specialist
PROC: 0DJ08ZZ Inspection of Upper Intestinal Tract, Via Natural or Artificial Opening Endoscopic (ICD-10-PCS; principal; 2018-04-24)
DX: K22.11 Ulcer of esophagus with bleeding (principal); J18.9 Pneumonia, unspecified organism; E44.0 Moderate protein-calorie malnutrition; J96.10 Chronic respiratory failure, unspecified whether with hypoxia or hypercapnia; I69.351 Hemiplegia and hemiparesis following cerebral infarction affecting right dominant side; I12.9 Hypertensive chronic kidney disease with stage 1 through stage 4 chronic kidney disease, or unspecified chronic kidney disease; N18.9 Chronic kidney disease, unspecified; K29.71 Gastritis, unspecified, with bleeding; D64.9 Anemia, unspecified; Z93.0 Tracheostomy status; E11.22 Type 2 diabetes mellitus with diabetic chronic kidney disease; L98.429 Non-pressure chronic ulcer of back with unspecified severity; E78.5 Hyperlipidemia, unspecified; E86.0 Dehydration; K21.0 Gastro-esophageal reflux disease with esophagitis; I25.10 Atherosclerotic heart disease of native coronary artery without angina pectoris; K44.9 Diaphragmatic hernia without obstruction or gangrene; Z93.1 Gastrostomy status; Z68.24 Body mass index [BMI] 24.0-24.9, adult; Z74.01 Bed confinement status; Z86.19 Personal history of other infectious and parasitic diseases; Z87.440 Personal history of urinary (tract) infections; Z87.01 Personal history of pneumonia (recurrent); Z22.322 Carrier or suspected carrier of Methicillin resistant Staphylococcus aureus; Z79.4 Long term (current) use of insulin; Z79.899 Other long term (current) drug therapy
CPT/HCPCS: 36415; 71045; 80048; 82962; 83605; 83735; 83880; 84100; 84484; 85027; 86850; 86900; 93005; 96374; 97162; 97166; 99291; C9113; J2250; J2543; J3010; J3370; J7030; J7042; J7050; J7608; J7620

== ENCOUNTER 2018-05-27 20:41 | Inpatient (IN) | payer MEDICARE, MEDICAID ==
[~2018-05-27] VITALS: Ht 170.2 cm; Wt 73.0 kg
[~2018-05-27 20:41] MED LIST changes: +ASCO500C15 MT; +CHLO473M2 MT; +CRAN3875 PO; +FRUC15LI PO; +HYDR-4001 MT; +METO25TA6 MT; +MOM MT; +NA P230E RC; +SAW/1TAB2 PO; +SCOP1PAT10 TP
[2018-05-27] MEDS ORDERED: CEFTRIAXONE 1 G PREMIX 50 ML IV ONE (21:15)
[2018-05-27] MEDS ORDERED: SODIUM CHLORIDE 0.9% 1000ML BAG (SEPSIS BOLUS) IV ONE (21:15)
[2018-05-27 22:28] LABS: BASOPHILS % 0.5 % (0.0-2.0); EOSINOPHILS % 1.7 % (0.0-5.0); HEMATOCRIT. 31.2 % (42.0-52.0); HEMOGLOBIN. 10.2 g/dL (14.0-18.0); LYMPHOCYTES % 15.8 % (20.0-50.0); MEAN CORPUSCULAR HEMOGLOBIN 30.6 pg (28.0-32.0); MEAN CORPUSCULAR VOLUME 93.4 fL (80.0-94.0); MEAN PLATELET VOLUME 10.3 fl (7.4-10.4); MONOCYTES % 5.6 % (2.0-8.0); NEUTROPHILS % 76.4 % (40.0-76.0); PLATELET 329 x1000/uL (130-400); RED BLOOD CELL COUNT 3.35 mill/uL (4.7-6.1)
[2018-05-27 22:30] LABS: CHLORIDE 93 mEq/L (98-107)
[2018-05-27] MEDS ORDERED: VANCOMYCIN 1 G PREMIX 200 ML IV NR (22:30)
[2018-05-27] MEDS ORDERED: AZITHROMYCIN 500 MG in DEXT 5% WATER 250 ML IV NR (22:30)
[2018-05-27 22:38] LABS: INR 1.1; PROTHROMBIN TIME 10.7 sec (9.1-11.1)
[2018-05-27] MEDS ORDERED: DOCUSATE SODIUM 100MG CAPSULE PO PRN (22:45)
[2018-05-27] MEDS ORDERED: MEROPENEM 1,000 MG in SODIUM CHLORIDE 0.9% 100 ML IV SCH (22:45)
[2018-05-27] MEDS ORDERED: MAGNESIUM/ALUMINUM HYDROXIDE/SIMETHICONE 30ML UDC PO PRN (22:45)
[2018-05-27] MEDS ORDERED: ACETAMINOPHEN 325MG TABLET PO PRN (22:45)
[2018-05-27] MEDS ORDERED: ONDANSETRON HCL 4MG/2ML INJ IV PRN (22:45)
[2018-05-27] MEDS ORDERED: GUAIFENESIN 200MG/10ML SUGAR FREE UDC PO PRN (22:45)
[2018-05-27] MEDS ORDERED: IPRATROPIUM/ALBUTEROL 0.5-3(2.5)MG/3ML NEB INH PRN (22:45)
[2018-05-27] MEDS ORDERED: ACETAMINOPHEN 650MG SUPP PR PRN (22:45)
[2018-05-27] MEDS ORDERED: PIPERACILLIN/TAZOBACTAM 3.375GM/50ML PREMIX IV ONE (23:30)
[2018-05-28] VITALS (13 sets, daily range): BP systolic 91–131; BP diastolic 50–71
[2018-05-28] LABS: CLARITY URINE CLEAR (CLEAR); COLOR URINE YELLOW (YELLOW); KETONES URINE NEGATIVE (NEGATIVE); LEUKOCYTE ESTERASE URINE NEGATIVE (NEGATIVE); NITRITE URINE NEGATIVE (NEGATIVE); OCCULT BLOOD URINE NEGATIVE (NEGATIVE); PH URINE 6.5 (4.5-8.0); PROTEIN URINE NEGATIVE (NEGATIVE); SPECIFIC GRAVITY URINE 1.017 (1.005-1.030); UROBILINOGEN URINE 0.2 E.U./dL (0.2-1.0)
[2018-05-28] MEDS: IPRATROPIUM/ALBUTEROL 0.5-3(2.5)MG/3ML NEB HHN SCH ×2 (00:30→16:23)
[2018-05-28] MEDS: ACETYLCYSTEINE 100MG/ML 10% VIAL 4ML INH SCH (00:30)
[2018-05-28 00:47] LABS: BG BASE EXCESS 3.3 mmol/L (-2.0-2.0); BG CARBOXYHEMOGLOBIN 0.3 % (0.5-1.5); BG DEOXYHEMOGLOBIN 1.2 % (0.0-5.0); BG FRACTION INSPIRED OXYGEN 50; BG HCO3 ACT 27.7 mmol/L (22.0-26.0); BG METHEMOGLOBIN 0.2 % (0.0-1.5); BG OXYGEN SATURATION 98.8 % (92.0-98.5); BG OXYHEMOGLOBIN 98.3 % (94.0-97.0); BG PCO2 41.1 mmHg (35.0-45.0); BG PH 7.446 (7.350-7.450); BG PO2 158.6 mmHg (75.0-100.0); BG SAMPLE SITE RIGHT BRACHIAL; BG TIDAL VOLUME(mL) 500 mL; BG VENT MODE VENT - SIMV; BG VENT RATE 8 set
[2018-05-28] MEDS ORDERED: LACTATED RINGERS 1,000 ML IV SCH (02:55)
[2018-05-28 06:16] LABS: BASOPHILS % 0.3 % (0.0-2.0); EOSINOPHILS % 1.1 % (0.0-5.0); HEMATOCRIT. 27.2 % (42.0-52.0); HEMOGLOBIN. 8.7 g/dL (14.0-18.0); LYMPHOCYTES % 8.7 % (20.0-50.0); MEAN CORPUSCULAR HEMOGLOBIN 30.3 pg (28.0-32.0); MEAN CORPUSCULAR VOLUME 94.2 fL (80.0-94.0); MEAN PLATELET VOLUME 9.7 fl (7.4-10.4); MONOCYTES % 7.1 % (2.0-8.0); NEUTROPHILS % 82.8 % (40.0-76.0); PLATELET 264 x1000/uL (130-400); RED BLOOD CELL COUNT 2.88 mill/uL (4.7-6.1); RED CELL DISTRIBUTION WIDTH 13.9 % (11.6-14.6)
[2018-05-28 06:34] LABS: CHLORIDE 98 mEq/L (98-107)
[2018-05-28 06:46] LABS: LDL CHOLESTEROL 57 mg/dL (5-100)
[2018-05-28 06:47] LABS: HDL CHOLESTEROL 28 mg/dL (40-59); PHOSPHORUS 3.5 mg/dL (2.5-4.9)
[2018-05-28 07:27] LABS: BG BASE EXCESS 8.5 mmol/L (-2.0-2.0); BG CARBOXYHEMOGLOBIN 0.3 % (0.5-1.5); BG DEOXYHEMOGLOBIN 1.1 % (0.0-5.0); BG HCO3 ACT 32.8 mmol/L (22.0-26.0); BG METHEMOGLOBIN 0.3 % (0.0-1.5); BG OXYGEN SATURATION 98.9 % (92.0-98.5); BG OXYHEMOGLOBIN 98.3 % (94.0-97.0); BG PCO2 44.4 mmHg (35.0-45.0); BG PH 7.486 (7.350-7.450); BG PO2 165.2 mmHg (75.0-100.0); BG SAMPLE SITE RIGHT RADIAL; BG TIDAL VOLUME(mL) 500 mL; BG VENT MODE VENT - SIMV; BG VENT RATE 8 set
[2018-05-28] MEDS ORDERED: DEXTROSE 50% WATER 50ML SYRINGE IV PRN (08:45)
[2018-05-28] MEDS: METOPROLOL TARTRATE 25MG TABLET PO SCH ×2 (10:33→20:58)
[2018-05-28] MEDS: SODIUM CHLORIDE 0.45% 1,000 ML IV SCH (11:13)
[2018-05-28] MEDS: BLOOD SUGAR DIAGNOSTIC STRIP TEST SCH ×3 (12:00→23:55)
[2018-05-28] MEDS: INSULIN LISPRO 100 UNITS/ML SUBCUT SCH ×3 (12:00→23:56)
[2018-05-28] MEDS: MEROPENEM 1,000 MG in SODIUM CHLORIDE 0.9% 100 ML IV SCH ×2 (12:29→20:59)
[2018-05-28] MEDS ORDERED: LIDOCAINE HCL/PF 1% 2ML VIAL ONE (14:53)
[2018-05-29] VITALS (19 sets, daily range): BP systolic 118–175; BP diastolic 59–106
[2018-05-29] MEDS: LORAZEPAM 2MG/ML CPJ IV PRN ×4 (00:18→22:20)
[2018-05-29] MEDS: SODIUM CHLORIDE 0.45% 1,000 ML IV SCH ×2 (02:25→20:05)
[2018-05-29] MEDS: MEROPENEM 1,000 MG in SODIUM CHLORIDE 0.9% 100 ML IV SCH ×3 (02:30→22:05)
[2018-05-29] MEDS: IPRATROPIUM/ALBUTEROL 0.5-3(2.5)MG/3ML NEB HHN SCH ×5 (03:49→20:35)
[2018-05-29] MEDS: INSULIN LISPRO 100 UNITS/ML SUBCUT SCH ×4 (05:36→23:55)
[2018-05-29] MEDS: BLOOD SUGAR DIAGNOSTIC STRIP TEST SCH ×4 (05:36→23:49)
[2018-05-29 06:33] LABS: BASOPHILS % 0.4 % (0.0-2.0); EOSINOPHILS % 2.9 % (0.0-5.0); HEMATOCRIT. 25.4 % (42.0-52.0); HEMOGLOBIN. 8.5 g/dL (14.0-18.0); LYMPHOCYTES % 11.8 % (20.0-50.0); MEAN CORPUSCULAR HEMOGLOBIN 31.5 pg (28.0-32.0); MEAN CORPUSCULAR VOLUME 93.6 fL (80.0-94.0); MEAN PLATELET VOLUME 9.1 fl (7.4-10.4); MONOCYTES % 5.5 % (2.0-8.0); NEUTROPHILS % 79.4 % (40.0-76.0); PLATELET 300 x1000/uL (130-400); RED BLOOD CELL COUNT 2.72 mill/uL (4.7-6.1); RED CELL DISTRIBUTION WIDTH 13.5 % (11.6-14.6)
[2018-05-29 06:39] LABS: CHLORIDE 106 mEq/L (98-107)
[2018-05-29] MEDS: ACETYLCYSTEINE 100MG/ML 10% VIAL 4ML INH SCH ×2 (08:50→16:23)
[2018-05-29] MEDS: METOPROLOL TARTRATE 25MG TABLET PO SCH ×2 (09:09→22:05)
[2018-05-29] MEDS: DIPHENHYDRAMINE 50MG/ML VIAL IV PRN (22:21)
[2018-05-30] VITALS (12 sets, daily range): BP systolic 118–173; BP diastolic 65–101
[2018-05-30] MEDS: IPRATROPIUM/ALBUTEROL 0.5-3(2.5)MG/3ML NEB HHN SCH ×6 (00:21→21:13)
[2018-05-30] MEDS: ACETYLCYSTEINE 100MG/ML 10% VIAL 4ML INH SCH ×2 (00:21→08:01)
[2018-05-30] MEDS: CLONIDINE 0.1MG TABLET PO PRN (03:26)
[2018-05-30] MEDS: LORAZEPAM 2MG/ML CPJ IV PRN ×4 (03:27→17:56)
[2018-05-30] MEDS: DIPHENHYDRAMINE 50MG/ML VIAL IV PRN ×2 (03:28→20:51)
[2018-05-30] MEDS: MEROPENEM 1,000 MG in SODIUM CHLORIDE 0.9% 100 ML IV SCH ×2 (03:33→11:25)
[2018-05-30] MEDS: BLOOD SUGAR DIAGNOSTIC STRIP TEST SCH ×3 (05:25→17:21)
[2018-05-30] MEDS: INSULIN LISPRO 100 UNITS/ML SUBCUT SCH ×3 (05:25→17:21)
[2018-05-30 06:07] LABS: BASOPHILS % 0.3 % (0.0-2.0); EOSINOPHILS % 2.2 % (0.0-5.0); HEMATOCRIT. 26.5 % (42.0-52.0); HEMOGLOBIN. 8.6 g/dL (14.0-18.0); LYMPHOCYTES % 14.3 % (20.0-50.0); MEAN CORPUSCULAR HEMOGLOBIN 30.7 pg (28.0-32.0); MEAN CORPUSCULAR VOLUME 94.7 fL (80.0-94.0); MEAN PLATELET VOLUME 9.3 fl (7.4-10.4); MONOCYTES % 7.1 % (2.0-8.0); NEUTROPHILS % 76.1 % (40.0-76.0); PLATELET 299 x1000/uL (130-400); RED BLOOD CELL COUNT 2.79 mill/uL (4.7-6.1); RED CELL DISTRIBUTION WIDTH 13.4 % (11.6-14.6)
[2018-05-30 06:34] LABS: CHLORIDE 112 mEq/L (98-107)
[2018-05-30] MEDS: METOPROLOL TARTRATE 25MG TABLET PO SCH (08:28)
[2018-05-30] MEDS: CEFEPIME 1,000 MG in DEXTROSE 5% WATER 50 ML IV SCH (17:05)
[2018-05-30] MEDS: METOPROLOL TARTRATE 50MG TABLET PO SCH (20:50)
[2018-05-30] MEDS: SODIUM CHLORIDE 0.45% 1,000 ML IV SCH (20:51)
[2018-05-30] MEDS: HALOPERIDOL LACTATE 5MG/ML VIAL IM PRN (22:11)
[2018-05-31] VITALS (16 sets, daily range): BP systolic 102–182; BP diastolic 56–97
[2018-05-31] MEDS: BLOOD SUGAR DIAGNOSTIC STRIP TEST SCH ×4 (00:22→17:45)
[2018-05-31] MEDS: ACETYLCYSTEINE 100MG/ML 10% VIAL 4ML INH SCH ×3 (00:45→15:52)
[2018-05-31] MEDS: IPRATROPIUM/ALBUTEROL 0.5-3(2.5)MG/3ML NEB HHN SCH ×6 (00:46→20:31)
[2018-05-31] MEDS: CEFEPIME 1,000 MG in DEXTROSE 5% WATER 50 ML IV SCH ×2 (03:44→17:50)
[2018-05-31] MEDS: INSULIN LISPRO 100 UNITS/ML SUBCUT SCH ×4 (05:23→17:45)
[2018-05-31 06:39] LABS: BASOPHILS % 0.7 % (0.0-2.0); EOSINOPHILS % 6.3 % (0.0-5.0); HEMOGLOBIN. 7.6 g/dL (14.0-18.0); LYMPHOCYTES % 24.3 % (20.0-50.0); MEAN CORPUSCULAR HEMOGLOBIN 31.2 pg (28.0-32.0); MEAN CORPUSCULAR VOLUME 94.7 fL (80.0-94.0); MONOCYTES % 7.5 % (2.0-8.0); NEUTROPHILS % 61.2 % (40.0-76.0); PLATELET 236 x1000/uL (130-400); RED BLOOD CELL COUNT 2.43 mill/uL (4.7-6.1); RED CELL DISTRIBUTION WIDTH 13.3 % (11.6-14.6)
[2018-05-31 06:48] LABS: CHLORIDE 113 mEq/L (98-107)
[2018-05-31] MEDS: METOPROLOL TARTRATE 50MG TABLET PO SCH ×2 (08:51→20:17)
[2018-05-31] MEDS: LORAZEPAM 2MG/ML CPJ IV PRN ×2 (08:59→20:17)
[2018-05-31] MEDS: DIPHENHYDRAMINE 50MG/ML VIAL IV PRN ×2 (08:59→20:17)
[2018-05-31] MEDS: SODIUM CHLORIDE 0.45% 1,000 ML IV SCH (12:25)
[2018-05-31] MEDS ORDERED: LIDOCAINE HCL 1% 20ML VIAL (Pyxis) INJ ONE (13:11)
[2018-05-31] MEDS ORDERED: SODIUM BICARBONATE 4% (2.4MEQ) 5ML VIAL IV ONE (13:11)
[2018-05-31] MEDS: PANTOPRAZOLE SODIUM 40 MG/VIAL IV SCH ×2 (13:53→20:17)
[2018-06-01] VITALS (12 sets, daily range): BP systolic 110–177; BP diastolic 57–89
[2018-06-01] MEDS: BLOOD SUGAR DIAGNOSTIC STRIP TEST SCH ×4 (00:23→17:03)
[2018-06-01] MEDS: ACETYLCYSTEINE 100MG/ML 10% VIAL 4ML INH SCH ×3 (00:43→16:46)
[2018-06-01] MEDS: IPRATROPIUM/ALBUTEROL 0.5-3(2.5)MG/3ML NEB HHN SCH ×6 (00:54→20:22)
[2018-06-01] MEDS: SODIUM CHLORIDE 0.45% 1,000 ML IV SCH ×2 (04:37→11:32)
[2018-06-01] MEDS: CEFEPIME 1,000 MG in DEXTROSE 5% WATER 50 ML IV SCH ×2 (04:37→15:09)
[2018-06-01] MEDS: CLONIDINE 0.1MG TABLET PO PRN ×2 (05:18→22:39)
[2018-06-01] MEDS: HALOPERIDOL LACTATE 5MG/ML VIAL IM PRN (05:22)
[2018-06-01] MEDS: INSULIN LISPRO 100 UNITS/ML SUBCUT SCH ×4 (05:39→17:11)
[2018-06-01 07:00] LABS: BASOPHILS % 0.7 % (0.0-2.0); FOLIC ACID (FOLATE) SERUM > 20.00 ng/mL (>5.38); HEMATOCRIT. 28.5 % (42.0-52.0); HEMOGLOBIN. 9.5 g/dL (14.0-18.0); LYMPHOCYTES % 19.6 % (20.0-50.0); MEAN CORPUSCULAR HEMOGLOBIN 30.8 pg (28.0-32.0); MEAN CORPUSCULAR VOLUME 92.3 fL (80.0-94.0); MEAN PLATELET VOLUME 9.1 fl (7.4-10.4); NEUTROPHILS % 67.7 % (40.0-76.0); PLATELET 251 x1000/uL (130-400); RED BLOOD CELL COUNT 3.08 mill/uL (4.7-6.1); RED CELL DISTRIBUTION WIDTH 14.6 % (11.6-14.6)
[2018-06-01 07:11] LABS: VITAMIN B12 SERUM 1890 pg/mL (211-911)
[2018-06-01 07:34] LABS: CHLORIDE 112 mEq/L (98-107)
[2018-06-01 07:44] LABS: TOTAL IRON BINDING CAPACITY 281 ug/dL (250-450)
[2018-06-01] MEDS: ZINC SULFATE 220 MG ( 50 ) CAPSULE PO SCH (09:08)
[2018-06-01] MEDS: ASCORBIC ACID 500 MG TABLET PO SCH (09:08)
[2018-06-01] MEDS: PANTOPRAZOLE SODIUM 40 MG/VIAL IV SCH ×2 (09:08→20:53)
[2018-06-01] MEDS: METOPROLOL TARTRATE 50MG TABLET PO SCH ×2 (09:08→20:53)
[2018-06-01] MEDS: DIPHENHYDRAMINE 50MG/ML VIAL IV PRN ×2 (13:28→20:53)
[2018-06-01] MEDS: LORAZEPAM 2MG/ML CPJ IV PRN ×2 (17:03→22:38)
[2018-06-02] VITALS (12 sets, daily range): BP systolic 117–165; BP diastolic 64–98
[2018-06-02] MEDS: IPRATROPIUM/ALBUTEROL 0.5-3(2.5)MG/3ML NEB HHN SCH ×6 (00:24→20:44)
[2018-06-02] MEDS: ACETYLCYSTEINE 100MG/ML 10% VIAL 4ML INH SCH ×3 (00:24→16:44)
[2018-06-02] MEDS: BLOOD SUGAR DIAGNOSTIC STRIP TEST SCH ×4 (00:25→18:48)
[2018-06-02] MEDS: CEFEPIME 1,000 MG in DEXTROSE 5% WATER 50 ML IV SCH ×2 (04:03→15:48)
[2018-06-02] MEDS: HALOPERIDOL LACTATE 5MG/ML VIAL IM PRN ×2 (04:03→15:48)
[2018-06-02] MEDS: INSULIN LISPRO 100 UNITS/ML SUBCUT SCH ×4 (05:31→18:00)
[2018-06-02 07:00] LABS: BASOPHILS % 0.4 % (0.0-2.0); EOSINOPHILS % 4.6 % (0.0-5.0); HEMATOCRIT. 27.1 % (42.0-52.0); HEMOGLOBIN. 9.2 g/dL (14.0-18.0); LYMPHOCYTES % 16.4 % (20.0-50.0); MEAN CORPUSCULAR HEMOGLOBIN 30.9 pg (28.0-32.0); MEAN CORPUSCULAR VOLUME 90.8 fL (80.0-94.0); MONOCYTES % 5.7 % (2.0-8.0); NEUTROPHILS % 72.9 % (40.0-76.0); PLATELET 265 x1000/uL (130-400); RED BLOOD CELL COUNT 2.98 mill/uL (4.7-6.1); RED CELL DISTRIBUTION WIDTH 13.7 % (11.6-14.6)
[2018-06-02 07:01] LABS: CHLORIDE 109 mEq/L (98-107)
[2018-06-02] MEDS: ZINC SULFATE 220 MG ( 50 ) CAPSULE PO SCH (10:31)
[2018-06-02] MEDS: METOPROLOL TARTRATE 50MG TABLET PO SCH ×2 (10:31→20:56)
[2018-06-02] MEDS: ASCORBIC ACID 500 MG TABLET PO SCH (10:31)
[2018-06-02] MEDS: PANTOPRAZOLE SODIUM 40 MG/VIAL IV SCH ×2 (10:38→20:56)
[2018-06-02] MEDS: LORAZEPAM 2MG/ML CPJ IV PRN (21:34)
[2018-06-03] VITALS (14 sets, daily range): BP systolic 96–176; BP diastolic 44–76
[2018-06-03] MEDS: IPRATROPIUM/ALBUTEROL 0.5-3(2.5)MG/3ML NEB HHN SCH ×5 (00:45→16:57)
[2018-06-03] MEDS: CEFEPIME 1,000 MG in DEXTROSE 5% WATER 50 ML IV SCH (04:02)
[2018-06-03 05:53] LABS: BASOPHILS % 0.6 % (0.0-2.0); EOSINOPHILS % 4.2 % (0.0-5.0); HEMATOCRIT. 28.8 % (42.0-52.0); HEMOGLOBIN. 9.5 g/dL (14.0-18.0); LYMPHOCYTES % 22.6 % (20.0-50.0); MEAN CORPUSCULAR HEMOGLOBIN 30.5 pg (28.0-32.0); MEAN CORPUSCULAR VOLUME 92.5 fL (80.0-94.0); MEAN PLATELET VOLUME 8.8 fl (7.4-10.4); MONOCYTES % 7.4 % (2.0-8.0); NEUTROPHILS % 65.2 % (40.0-76.0); PLATELET 269 x1000/uL (130-400); RED BLOOD CELL COUNT 3.11 mill/uL (4.7-6.1); RED CELL DISTRIBUTION WIDTH 13.5 % (11.6-14.6)
[2018-06-03] MEDS: BLOOD SUGAR DIAGNOSTIC STRIP TEST SCH ×4 (06:00→17:08)
[2018-06-03] MEDS: INSULIN LISPRO 100 UNITS/ML SUBCUT SCH ×4 (06:00→18:00)
[2018-06-03 06:43] LABS: CHLORIDE 111 mEq/L (98-107)
[2018-06-03 08:35] LABS: BG BASE EXCESS 3.4 mmol/L (-2.0-2.0); BG CARBOXYHEMOGLOBIN 0.3 % (0.5-1.5); BG DEOXYHEMOGLOBIN 1.8 % (0.0-5.0); BG FRACTION INSPIRED OXYGEN 35; BG HCO3 ACT 28.5 mmol/L (22.0-26.0); BG METHEMOGLOBIN 0.1 % (0.0-1.5); BG OXYGEN SATURATION 98.2 % (92.0-98.5); BG OXYHEMOGLOBIN 97.8 % (94.0-97.0); BG PCO2 45.5 mmHg (35.0-45.0); BG PH 7.414 (7.350-7.450); BG PO2 123.3 mmHg (75.0-100.0); BG PRESSURE SUPPORT 12; BG SAMPLE SITE RIGHT RADIAL; BG TIDAL VOLUME(mL) 500 mL; BG TOTAL HEMOGLOBIN 10.1 g/dL (12.0-18.0); BG VENT MODE VENT - SIMV; BG VENT RATE 6 set
[2018-06-03] MEDS: PANTOPRAZOLE SODIUM 40 MG/VIAL IV SCH (08:52)
[2018-06-03] MEDS: ZINC SULFATE 220 MG ( 50 ) CAPSULE PO SCH (08:52)
[2018-06-03] MEDS: ASCORBIC ACID 500 MG TABLET PO SCH (08:52)
[2018-06-03] MEDS: METOPROLOL TARTRATE 50MG TABLET PO SCH (08:53)
[2018-06-03] MEDS: HALOPERIDOL LACTATE 5MG/ML VIAL IM PRN (12:44)
[2018-06-03] MEDS: LORAZEPAM 2MG/ML CPJ IV PRN ×2 (16:17→21:16)
== END 2018-06-03 21:25 | DRG 870 ==
LOC: ER 20:41 → EDBEDREQTM 22:29 → EDBEDREQ 22:29 → ENRESERV 05-28 00:24 → 5EST 05-28 02:08
PROVIDERS: ADMIT Family Medicine Adult Medicine; ATTEND Family Medicine Adult Medicine
PROC: 5A1955Z Respiratory Ventilation, Greater than 96 Consecutive Hours (ICD-10-PCS; principal; 2018-05-28)
PROC: 30233N1 Transfusion of Nonautologous Red Blood Cells into Peripheral Vein, Percutaneous Approach (ICD-10-PCS; 2018-05-31)
PROC: 02HV33Z Insertion of Infusion Device into Superior Vena Cava, Percutaneous Approach (ICD-10-PCS; 2018-05-31)
PROC: B548ZZA Ultrasonography of Superior Vena Cava, Guidance (ICD-10-PCS; 2018-05-31)
DX: A41.9 Sepsis, unspecified organism (principal); L89.154 Pressure ulcer of sacral region, stage 4; G92 Toxic encephalopathy; E43 Unspecified severe protein-calorie malnutrition; I21.4 Non-ST elevation (NSTEMI) myocardial infarction; J96.20 Acute and chronic respiratory failure, unspecified whether with hypoxia or hypercapnia; J18.1 Lobar pneumonia, unspecified organism; N17.9 Acute kidney failure, unspecified; E87.0 Hyperosmolality and hypernatremia; Z43.1 Encounter for attention to gastrostomy; Z99.11 Dependence on respirator [ventilator] status; I69.351 Hemiplegia and hemiparesis following cerebral infarction affecting right dominant side; D64.9 Anemia, unspecified; E87.5 Hyperkalemia; E11.22 Type 2 diabetes mellitus with diabetic chronic kidney disease; E78.5 Hyperlipidemia, unspecified; N18.9 Chronic kidney disease, unspecified; E86.9 Volume depletion, unspecified; I12.9 Hypertensive chronic kidney disease with stage 1 through stage 4 chronic kidney disease, or unspecified chronic kidney disease; Z79.82 Long term (current) use of aspirin; Z79.899 Other long term (current) drug therapy; Z78.1 Physical restraint status; Z87.11 Personal history of peptic ulcer disease; Z93.0 Tracheostomy status; Z88.9 Allergy status to unspecified drugs, medicaments and biological substances; K21.9 Gastro-esophageal reflux disease without esophagitis; R47.02 Dysphasia; Z68.25 Body mass index [BMI] 25.0-25.9, adult
CPT/HCPCS: 36415; 36569; 36600; 71045; 76937; 80048; 80061; 82270; 82375; 82550; 82607; 82746; 82805; 82962; 83036; 83540; 83550; 83605; 83735; 84100; 84134; 84145; 84443; 84481; 84484; 86850; 86900; 86920; 87070; 93005; 93306; 93970; 94002; 94003; 94640; 96374; 96375; 99285; C1725; C9113; J0456; J0692; J0696; J1200; J1630; J1642; J1815; J2060; J2185; J3370; J3490; J7030; J7050; J7060; J7608; J7620; P9016; A4315

== ENCOUNTER 2018-08-25 00:28 | Inpatient (IN) | payer MEDICARE, MEDICAID ==
[2018-08-25] VITALS (12 sets, daily range): BP systolic 92–144; BP diastolic 44–68
[~2018-08-25] VITALS: Ht 177.8 cm; Wt 69.9 kg
[2018-08-25] MEDS ORDERED: VANCOMYCIN 1 G PREMIX 200 ML IV ONE (00:45)
[2018-08-25] MEDS ORDERED: PIPERACILLIN/TAZ 3.375G PREMIX 50 ML IV ONE (00:45)
[2018-08-25] MEDS ORDERED: SODIUM CHLORIDE 0.9% 1000ML BAG (SEPSIS BOLUS) IV ONE (00:45)
[2018-08-25 01:06] LABS: HEMATOCRIT. 30.4 % (42.0-52.0); HEMOGLOBIN. 10.4 g/dL (14.0-18.0); MEAN CORPUSCULAR HEMOGLOBIN 32.1 pg (28.0-32.0); MEAN CORPUSCULAR VOLUME 93.7 fL (80.0-94.0); MEAN PLATELET VOLUME 9.9 fl (7.4-10.4); PLATELET 247 x1000/uL (130-400); RED BLOOD CELL COUNT 3.24 mill/uL (4.7-6.1); RED CELL DISTRIBUTION WIDTH 13.2 % (11.6-14.6)
[2018-08-25 01:08] LABS: CHLORIDE 109 mEq/L (98-107)
[2018-08-25 01:26] LABS: BG BASE EXCESS 4.9 mmol/L (-2.0-2.0); BG CARBOXYHEMOGLOBIN 0.3 % (0.5-1.5); BG DEOXYHEMOGLOBIN 5.8 % (0.0-5.0); BG FRACTION INSPIRED OXYGEN 40; BG HCO3 ACT 29.9 mmol/L (22.0-26.0); BG METHEMOGLOBIN 0.2 % (0.0-1.5); BG OXYGEN SATURATION 94.2 % (92.0-98.5); BG OXYHEMOGLOBIN 93.7 % (94.0-97.0); BG PCO2 46.9 mmHg (35.0-45.0); BG PH 7.423 (7.350-7.450); BG PO2 72.7 mmHg (75.0-100.0); BG PRESSURE SUPPORT 8; BG SAMPLE SITE RIGHT RADIAL; BG TIDAL VOLUME(mL) 500 mL; BG TOTAL HEMOGLOBIN 10.1 g/dL (12.0-18.0); BG VENT MODE VENT - SIMV; BG VENT RATE 6 set
[2018-08-25 01:29] LABS: INR 1.1; PROTHROMBIN TIME 10.9 sec (9.6-11.0)
[2018-08-25 01:49] LABS: PLATELET ESTIMATE NORMAL
[2018-08-25 01:56] LABS: CLARITY URINE CLEAR (CLEAR); COLOR URINE YELLOW (YELLOW); KETONES URINE NEGATIVE (NEGATIVE); LEUKOCYTE ESTERASE URINE NEGATIVE (NEGATIVE); NITRITE URINE NEGATIVE (NEGATIVE); OCCULT BLOOD URINE 2+ (NEGATIVE); PROTEIN URINE TRACE (NEGATIVE); UROBILINOGEN URINE 0.2 E.U./dL (0.2-1.0)
[2018-08-25] MEDS ORDERED: ACETAMINOPHEN 650MG/20.3ML UDC PO ONE (02:15)
[2018-08-25] MEDS ORDERED: ACETAMINOPHEN 325MG SUPP PR ONE (02:15)
[2018-08-25] MEDS ORDERED: ACETAMINOPHEN 650MG SUPP PR ONE (02:15)
[2018-08-25] MEDS ORDERED: MEDICATION NOT ON FORMULARY EA (Famotidine 20 MG) GT SCH (07:00)
[2018-08-25] MEDS ORDERED: ZOSYN XX SCH (07:30)
[2018-08-25] MEDS ORDERED: DEXTROSE 50% WATER 50ML SYRINGE IV PRN (07:45)
[2018-08-25] MEDS ORDERED: METOPROLOL TARTRATE 50MG TABLET PO SCH (09:00)
[2018-08-25] MEDS: METOPROLOL TARTRATE 25MG TABLET PO SCH ×2 (09:16→20:57)
[2018-08-25] MEDS: LISINOPRIL 10MG TABLET PO SCH (09:16)
[2018-08-25] MEDS: ENOXAPARIN 40MG/0.4ML SYR SUBCUT SCH (09:18)
[2018-08-25] MEDS: FAMOTIDINE 20MG TABLET GT SCH ×2 (09:20→20:57)
[2018-08-25] MEDS: VANCOMYCIN 1 G PREMIX 200 ML IV SCH ×2 (10:27→20:56)
[2018-08-25] MEDS: PIPERACILLIN/TAZ 3.375G PREMIX 50 ML IV SCH ×3 (10:27→20:56)
[2018-08-25] MEDS: BLOOD SUGAR DIAGNOSTIC STRIP TEST SCH ×2 (12:00→18:00)
[2018-08-25] MEDS: IPRATROPIUM/ALBUTEROL 0.5-3(2.5)MG/3ML NEB HHN SCH ×3 (12:45→20:43)
[2018-08-25] MEDS: INSULIN LISPRO 100 UNITS/ML SUBCUT SCH ×2 (13:05→18:00)
[2018-08-26] VITALS (18 sets, daily range): BP systolic 98–154; BP diastolic 40–105
[2018-08-26] MEDS: IPRATROPIUM/ALBUTEROL 0.5-3(2.5)MG/3ML NEB HHN SCH ×4 (00:21→20:11)
[2018-08-26] MEDS: PIPERACILLIN/TAZ 3.375G PREMIX 50 ML IV SCH ×4 (05:07→21:15)
[2018-08-26] MEDS: BLOOD SUGAR DIAGNOSTIC STRIP TEST SCH ×4 (05:13→17:43)
[2018-08-26] MEDS: INSULIN LISPRO 100 UNITS/ML SUBCUT SCH ×4 (05:13→17:43)
[2018-08-26 06:11] LABS: CHLORIDE 116 mEq/L (98-107)
[2018-08-26] MEDS: METOPROLOL TARTRATE 25MG TABLET PO SCH ×2 (08:27→21:15)
[2018-08-26] MEDS: LISINOPRIL 10MG TABLET PO SCH (08:28)
[2018-08-26] MEDS: ENOXAPARIN 40MG/0.4ML SYR SUBCUT SCH (08:49)
[2018-08-26] MEDS: VANCOMYCIN 1 G PREMIX 200 ML IV SCH ×2 (08:49→21:14)
[2018-08-26] MEDS: FAMOTIDINE 20MG TABLET GT SCH (08:49)
[2018-08-26 10:09] LABS: BASOPHILS % 0.2 % (0.0-2.0); HEMATOCRIT. 23.5 % (42.0-52.0); LYMPHOCYTES % 10.4 % (20.0-50.0); MEAN CORPUSCULAR HEMOGLOBIN 32.4 pg (28.0-32.0); MEAN PLATELET VOLUME 9.9 fl (7.4-10.4); MONOCYTES % 6.9 % (2.0-8.0); NEUTROPHILS % 79.5 % (40.0-76.0); PLATELET 159 x1000/uL (130-400); RED BLOOD CELL COUNT 2.42 mill/uL (4.7-6.1)
[2018-08-26 10:10] LABS: HEMOGLOBIN. 7.9 g/dL (14.0-18.0)
[2018-08-27] VITALS (13 sets, daily range): BP systolic 121–179; BP diastolic 42–68
[2018-08-27] MEDS: IPRATROPIUM/ALBUTEROL 0.5-3(2.5)MG/3ML NEB HHN SCH ×7 (00:22→23:57)
[2018-08-27] MEDS: BLOOD SUGAR DIAGNOSTIC STRIP TEST SCH ×3 (00:29→12:00)
[2018-08-27] MEDS: PIPERACILLIN/TAZ 3.375G PREMIX 50 ML IV SCH ×4 (04:46→21:10)
[2018-08-27] MEDS: INSULIN LISPRO 100 UNITS/ML SUBCUT SCH ×4 (06:00→23:38)
[2018-08-27 07:20] LABS: CHLORIDE 114 mEq/L (98-107)
[2018-08-27 07:29] LABS: BASOPHILS % 0.4 % (0.0-2.0); EOSINOPHILS % 5.1 % (0.0-5.0); HEMATOCRIT. 22.9 % (42.0-52.0); HEMOGLOBIN. 7.8 g/dL (14.0-18.0); LYMPHOCYTES % 14.3 % (20.0-50.0); MEAN CORPUSCULAR HEMOGLOBIN 32.6 pg (28.0-32.0); MEAN CORPUSCULAR VOLUME 95.6 fL (80.0-94.0); MEAN PLATELET VOLUME 9.7 fl (7.4-10.4); MONOCYTES % 7.4 % (2.0-8.0); NEUTROPHILS % 72.8 % (40.0-76.0); PLATELET 154 x1000/uL (130-400); RED CELL DISTRIBUTION WIDTH 13.1 % (11.6-14.6)
[2018-08-27] MEDS: VANCOMYCIN 1 G PREMIX 200 ML IV SCH (09:29)
[2018-08-27] MEDS: METOPROLOL TARTRATE 25MG TABLET PO SCH ×2 (09:29→21:10)
[2018-08-27] MEDS: LISINOPRIL 10MG TABLET PO SCH (09:30)
[2018-08-27] MEDS: OMEPRAZOLE 20MG CAPSULE EXTENDED RELEASE PO SCH (09:32)
[2018-08-27] MEDS ORDERED: HYDROCODONE/ACETAMINOPHEN 5/325MG TABLET PO PRN (23:15)
[2018-08-27] MEDS: RISPERIDONE 0.5MG TABLET PO SCH (23:29)
[2018-08-28] VITALS (12 sets, daily range): BP systolic 100–158; BP diastolic 46–114
[2018-08-28] MEDS: BLOOD SUGAR DIAGNOSTIC STRIP TEST SCH ×4 (00:30→17:12)
[2018-08-28] MEDS: PIPERACILLIN/TAZ 3.375G PREMIX 50 ML IV SCH ×4 (04:27→21:58)
[2018-08-28] MEDS: INSULIN LISPRO 100 UNITS/ML SUBCUT SCH ×3 (06:00→17:13)
[2018-08-28] MEDS: OMEPRAZOLE 20MG CAPSULE EXTENDED RELEASE PO SCH (08:30)
[2018-08-28] MEDS: METOPROLOL TARTRATE 25MG TABLET PO SCH ×2 (08:34→21:57)
[2018-08-28] MEDS: LISINOPRIL 10MG TABLET PO SCH (08:34)
[2018-08-28] MEDS: IPRATROPIUM/ALBUTEROL 0.5-3(2.5)MG/3ML NEB HHN SCH ×4 (08:45→20:29)
[2018-08-28] MEDS: LORAZEPAM 2MG/ML CPJ IV PRN ×2 (14:05→19:21)
[2018-08-28 16:39] LABS: HEMOGLOBIN 8.7 g/dL (14.0-18.0); MEAN CORPUSCULAR VOLUME 95.7 fL (80.0-94.0); PLATELET 190 x1000/uL (130-400); RED BLOOD CELL COUNT 2.72 mill/uL (4.7-6.1); RED CELL DISTRIBUTION WIDTH 12.7 % (11.6-14.6)
[2018-08-28 16:58] LABS: CHLORIDE 111 mEq/L (98-107)
[2018-08-28] MEDS: RISPERIDONE 0.5MG TABLET PO SCH (21:56)
[2018-08-29] VITALS (12 sets, daily range): BP systolic 105–135; BP diastolic 39–63
[2018-08-29] MEDS: IPRATROPIUM/ALBUTEROL 0.5-3(2.5)MG/3ML NEB HHN SCH ×6 (00:06→20:22)
[2018-08-29] MEDS: BLOOD SUGAR DIAGNOSTIC STRIP TEST SCH ×5 (00:52→23:17)
[2018-08-29] MEDS: LORAZEPAM 2MG/ML CPJ IV PRN (02:37)
[2018-08-29] MEDS: PIPERACILLIN/TAZ 3.375G PREMIX 50 ML IV SCH ×4 (04:01→21:01)
[2018-08-29] MEDS: INSULIN LISPRO 100 UNITS/ML SUBCUT SCH ×5 (05:26→23:20)
[2018-08-29 06:06] LABS: BASOPHILS % 0.3 % (0.0-2.0); EOSINOPHILS % 6.8 % (0.0-5.0); HEMATOCRIT. 25.3 % (42.0-52.0); HEMOGLOBIN. 8.5 g/dL (14.0-18.0); LYMPHOCYTES % 20.5 % (20.0-50.0); MEAN CORPUSCULAR HEMOGLOBIN 32.2 pg (28.0-32.0); MEAN CORPUSCULAR VOLUME 95.6 fL (80.0-94.0); MEAN PLATELET VOLUME 9.7 fl (7.4-10.4); NEUTROPHILS % 65.4 % (40.0-76.0); PLATELET 164 x1000/uL (130-400); RED BLOOD CELL COUNT 2.65 mill/uL (4.7-6.1); RED CELL DISTRIBUTION WIDTH 12.7 % (11.6-14.6)
[2018-08-29 06:24] LABS: CHLORIDE 110 mEq/L (98-107)
[2018-08-29] MEDS: OMEPRAZOLE 20MG CAPSULE EXTENDED RELEASE PO SCH (06:32)
[2018-08-29] MEDS: LISINOPRIL 10MG TABLET PO SCH (08:35)
[2018-08-29] MEDS: METOPROLOL TARTRATE 25MG TABLET PO SCH ×2 (08:35→20:08)
[2018-08-29] MEDS: RISPERIDONE 0.5MG TABLET PO SCH (20:08)
[2018-08-30] VITALS (12 sets, daily range): BP systolic 92–137; BP diastolic 34–73
[2018-08-30] MEDS: IPRATROPIUM/ALBUTEROL 0.5-3(2.5)MG/3ML NEB HHN SCH ×6 (00:06→20:24)
[2018-08-30] MEDS: PIPERACILLIN/TAZ 3.375G PREMIX 50 ML IV SCH ×4 (03:19→21:05)
[2018-08-30] MEDS: BLOOD SUGAR DIAGNOSTIC STRIP TEST SCH ×4 (05:13→23:43)
[2018-08-30] MEDS: INSULIN LISPRO 100 UNITS/ML SUBCUT SCH ×4 (05:13→23:43)
[2018-08-30 06:11] LABS: BASOPHILS % 0.4 % (0.0-2.0); EOSINOPHILS % 6.4 % (0.0-5.0); HEMATOCRIT. 26.1 % (42.0-52.0); HEMOGLOBIN. 8.9 g/dL (14.0-18.0); LYMPHOCYTES % 22.5 % (20.0-50.0); MEAN CORPUSCULAR HEMOGLOBIN 32.4 pg (28.0-32.0); MEAN CORPUSCULAR VOLUME 95.3 fL (80.0-94.0); MEAN PLATELET VOLUME 9.7 fl (7.4-10.4); MONOCYTES % 6.6 % (2.0-8.0); NEUTROPHILS % 64.1 % (40.0-76.0); PLATELET 189 x1000/uL (130-400); RED BLOOD CELL COUNT 2.74 mill/uL (4.7-6.1); RED CELL DISTRIBUTION WIDTH 12.8 % (11.6-14.6)
[2018-08-30 07:55] LABS: CHLORIDE 109 mEq/L (98-107)
[2018-08-30] MEDS: OMEPRAZOLE 20MG CAPSULE EXTENDED RELEASE PO SCH (08:12)
[2018-08-30] MEDS: METOPROLOL TARTRATE 25MG TABLET PO SCH ×2 (08:35→20:05)
[2018-08-30] MEDS: LISINOPRIL 10MG TABLET PO SCH (08:35)
[2018-08-30] MEDS: RISPERIDONE 0.5MG TABLET PO SCH (20:05)
[2018-08-31] VITALS (12 sets, daily range): BP systolic 98–160; BP diastolic 46–90
[2018-08-31] MEDS: IPRATROPIUM/ALBUTEROL 0.5-3(2.5)MG/3ML NEB HHN SCH ×7 (00:32→23:55)
[2018-08-31] MEDS: PIPERACILLIN/TAZ 3.375G PREMIX 50 ML IV SCH ×4 (03:01→21:19)
[2018-08-31] MEDS: BLOOD SUGAR DIAGNOSTIC STRIP TEST SCH ×3 (05:35→17:14)
[2018-08-31] MEDS: INSULIN LISPRO 100 UNITS/ML SUBCUT SCH ×3 (05:35→17:28)
[2018-08-31] MEDS: LORAZEPAM 2MG/ML CPJ IV PRN ×3 (06:08→21:54)
[2018-08-31 07:55] LABS: CHLORIDE 109 mEq/L (98-107)
[2018-08-31 08:09] LABS: BASOPHILS % 0.3 % (0.0-2.0); EOSINOPHILS % 3.9 % (0.0-5.0); HEMATOCRIT. 27.9 % (42.0-52.0); HEMOGLOBIN. 9.3 g/dL (14.0-18.0); MEAN CORPUSCULAR HEMOGLOBIN 31.7 pg (28.0-32.0); MEAN PLATELET VOLUME 9.9 fl (7.4-10.4); MONOCYTES % 5.5 % (2.0-8.0); NEUTROPHILS % 74.3 % (40.0-76.0); PLATELET 220 x1000/uL (130-400); RED BLOOD CELL COUNT 2.93 mill/uL (4.7-6.1); RED CELL DISTRIBUTION WIDTH 12.9 % (11.6-14.6)
[2018-08-31] MEDS: METOPROLOL TARTRATE 25MG TABLET PO SCH ×2 (09:00→21:18)
[2018-08-31] MEDS: LISINOPRIL 10MG TABLET PO SCH (09:00)
[2018-08-31] MEDS: RISPERIDONE 0.5MG TABLET PO SCH (21:18)
[2018-09-01] VITALS (10 sets, daily range): BP systolic 92–147; BP diastolic 42–64
[2018-09-01] MEDS: INSULIN LISPRO 100 UNITS/ML SUBCUT SCH ×4 (00:41→17:15)
[2018-09-01] MEDS: IPRATROPIUM/ALBUTEROL 0.5-3(2.5)MG/3ML NEB HHN SCH ×5 (03:22→20:29)
[2018-09-01] MEDS: PIPERACILLIN/TAZ 3.375G PREMIX 50 ML IV SCH ×2 (05:09→10:18)
[2018-09-01] MEDS: BLOOD SUGAR DIAGNOSTIC STRIP TEST SCH ×4 (06:07→17:12)
[2018-09-01] MEDS: ACETAMINOPHEN 650MG/20.3ML UDC PO PRN (06:24)
[2018-09-01 07:29] LABS: BASOPHILS % 0.3 % (0.0-2.0); EOSINOPHILS % 3.2 % (0.0-5.0); HEMATOCRIT. 28.2 % (42.0-52.0); HEMOGLOBIN. 9.4 g/dL (14.0-18.0); LYMPHOCYTES % 12.3 % (20.0-50.0); MEAN CORPUSCULAR HEMOGLOBIN 31.8 pg (28.0-32.0); MEAN CORPUSCULAR VOLUME 95.2 fL (80.0-94.0); MEAN PLATELET VOLUME 9.7 fl (7.4-10.4); MONOCYTES % 4.3 % (2.0-8.0); NEUTROPHILS % 79.9 % (40.0-76.0); PLATELET 226 x1000/uL (130-400); RED BLOOD CELL COUNT 2.96 mill/uL (4.7-6.1); RED CELL DISTRIBUTION WIDTH 12.9 % (11.6-14.6)
[2018-09-01] MEDS: LISINOPRIL 10MG TABLET PO SCH (08:46)
[2018-09-01] MEDS: LANSOPRAZOLE 30MG DR CAPSULE GT SCH (08:46)
[2018-09-01] MEDS: METOPROLOL TARTRATE 25MG TABLET PO SCH ×2 (08:46→21:00)
[2018-09-01] MEDS: LORAZEPAM 2MG/ML CPJ IV PRN ×2 (08:47→14:11)
[2018-09-01 08:58] LABS: CHLORIDE 110 mEq/L (98-107)
[2018-09-01] MEDS ORDERED: SCOPOLAMINE HYDROBROMIDE PATCH 72HR TD SCH (09:00)
[2018-09-01] MEDS ORDERED: DIATR MEGLU/DIATRIZOATE SOLN 30ML PO NR (13:45)
[2018-09-01] MEDS ORDERED: VANCOMYCIN 1,750 MG in DEXT 5% WATER 250 ML IV NR (16:00)
[2018-09-01] MEDS: CEFEPIME 1,000 MG in DEXTROSE 5% WATER 50 ML IV SCH ×2 (17:09→21:03)
[2018-09-01 19:14] LABS: CLARITY URINE CLOUDY (CLEAR); COLOR URINE YELLOW (YELLOW); KETONES URINE TRACE (NEGATIVE); LEUKOCYTE ESTERASE URINE NEGATIVE (NEGATIVE); NITRITE URINE NEGATIVE (NEGATIVE); OCCULT BLOOD URINE NEGATIVE (NEGATIVE); PROTEIN URINE TRACE (NEGATIVE); SPECIFIC GRAVITY URINE 1.035 (1.005-1.030)
[2018-09-01] MEDS: METRONIDAZOLE 500MG TABLET PO SCH (20:34)
[2018-09-01] MEDS: RISPERIDONE 0.5MG TABLET PO SCH (20:34)
[2018-09-02] VITALS (8 sets, daily range): BP systolic 92–163; BP diastolic 44–87
[2018-09-02] MEDS: IPRATROPIUM/ALBUTEROL 0.5-3(2.5)MG/3ML NEB HHN SCH ×5 (02:00→19:51)
[2018-09-02] MEDS ORDERED: VANCOMYCIN 1250MG in DEXTROSE 5% WATER 250ML IV SCH (03:00)
[2018-09-02] MEDS: VANCOMYCIN 1 G PREMIX 200 ML IV SCH ×2 (04:07→17:51)
[2018-09-02] MEDS: INSULIN LISPRO 100 UNITS/ML SUBCUT SCH ×4 (06:00→18:00)
[2018-09-02] MEDS: BLOOD SUGAR DIAGNOSTIC STRIP TEST SCH ×4 (06:00→17:50)
[2018-09-02 06:45] LABS: BASOPHILS % 0.2 % (0.0-2.0); HEMATOCRIT. 29.2 % (42.0-52.0); LYMPHOCYTES % 13.4 % (20.0-50.0); MEAN CORPUSCULAR HEMOGLOBIN 32.3 pg (28.0-32.0); MEAN CORPUSCULAR VOLUME 94.7 fL (80.0-94.0); MEAN PLATELET VOLUME 9.6 fl (7.4-10.4); MONOCYTES % 5.7 % (2.0-8.0); NEUTROPHILS % 76.7 % (40.0-76.0); PLATELET 230 x1000/uL (130-400); RED BLOOD CELL COUNT 3.08 mill/uL (4.7-6.1); RED CELL DISTRIBUTION WIDTH 12.9 % (11.6-14.6)
[2018-09-02 07:14] LABS: CHLORIDE 106 mEq/L (98-107)
[2018-09-02 07:27] LABS: CREATINE KINASE 45 IU/L (39-308)
[2018-09-02] MEDS: METOPROLOL TARTRATE 25MG TABLET PO SCH ×2 (09:00→21:10)
[2018-09-02 09:03] LABS: BG BASE EXCESS 1.8 mmol/L (-2.0-2.0); BG CARBOXYHEMOGLOBIN 0.2 % (0.5-1.5); BG DEOXYHEMOGLOBIN 2.8 % (0.0-5.0); BG FRACTION INSPIRED OXYGEN 40; BG HCO3 ACT 26.4 mmol/L (22.0-26.0); BG METHEMOGLOBIN 0.1 % (0.0-1.5); BG OXYGEN SATURATION 97.2 % (92.0-98.5); BG OXYHEMOGLOBIN 96.9 % (94.0-97.0); BG PCO2 41.4 mmHg (35.0-45.0); BG PH 7.423 (7.350-7.450); BG PO2 98.4 mmHg (75.0-100.0); BG PRESSURE SUPPORT 8; BG SAMPLE SITE RIGHT BRACHIAL; BG TIDAL VOLUME(mL) 500 mL; BG VENT MODE VENT - SIMV; BG VENT RATE 12 set
[2018-09-02] MEDS: LISINOPRIL 10MG TABLET PO SCH (11:18)
[2018-09-02] MEDS: CEFEPIME 1,000 MG in DEXTROSE 5% WATER 50 ML IV SCH ×2 (11:18→21:14)
[2018-09-02] MEDS: METRONIDAZOLE 500MG TABLET PO SCH ×2 (11:18→21:06)
[2018-09-02] MEDS: LANSOPRAZOLE 30MG DR CAPSULE GT SCH (11:19)
[2018-09-02] MEDS: LEVOFLOXACIN 500MG TABLET PO SCH (15:16)
[2018-09-02] MEDS: LORAZEPAM 2MG/ML CPJ IV PRN (18:00)
[2018-09-02] MEDS: RISPERIDONE 0.5MG TABLET PO SCH (21:07)
[2018-09-03] VITALS (13 sets, daily range): BP systolic 105–152; BP diastolic 50–78
[2018-09-03] MEDS: IPRATROPIUM/ALBUTEROL 0.5-3(2.5)MG/3ML NEB HHN SCH ×5 (00:15→20:32)
[2018-09-03] MEDS: ACETYLCYSTEINE 100MG/ML 10% VIAL 4ML INH SCH ×2 (00:16→09:37)
[2018-09-03] MEDS: VANCOMYCIN 1 G PREMIX 200 ML IV SCH (04:15)
[2018-09-03] MEDS: ACETAMINOPHEN 650MG/20.3ML UDC PO PRN ×3 (05:47→16:22)
[2018-09-03] MEDS: LANSOPRAZOLE 30MG DR CAPSULE GT SCH (05:59)
[2018-09-03] MEDS: BLOOD SUGAR DIAGNOSTIC STRIP TEST SCH ×4 (06:00→18:02)
[2018-09-03 06:22] LABS: BASOPHILS % 0.5 % (0.0-2.0); EOSINOPHILS % 3.4 % (0.0-5.0); HEMATOCRIT. 30.3 % (42.0-52.0); HEMOGLOBIN. 10.2 g/dL (14.0-18.0); MEAN CORPUSCULAR HEMOGLOBIN 32.3 pg (28.0-32.0); MONOCYTES % 6.2 % (2.0-8.0); NEUTROPHILS % 77.9 % (40.0-76.0); RED BLOOD CELL COUNT 3.15 mill/uL (4.7-6.1)
[2018-09-03] MEDS: INSULIN LISPRO 100 UNITS/ML SUBCUT SCH ×4 (06:35→18:21)
[2018-09-03 06:39] LABS: CHLORIDE 111 mEq/L (98-107)
[2018-09-03] MEDS: CEFEPIME 1,000 MG in DEXTROSE 5% WATER 50 ML IV SCH ×2 (09:05→22:39)
[2018-09-03] MEDS: LEVOFLOXACIN 500MG TABLET PO SCH (09:05)
[2018-09-03] MEDS: METRONIDAZOLE 500MG TABLET PO SCH ×2 (09:05→21:12)
[2018-09-03] MEDS: LISINOPRIL 10MG TABLET PO SCH (09:06)
[2018-09-03] MEDS: METOPROLOL TARTRATE 25MG TABLET PO SCH ×2 (09:06→21:13)
[2018-09-03 12:04] LABS: PLATELET 272 x1000/uL (130-400)
[2018-09-03] MEDS ORDERED: SODIUM CHLORIDE 0.9% 1000ML BAG (SEPSIS BOLUS) IV SCH (18:30)
[2018-09-03] MEDS: RISPERIDONE 0.5MG TABLET PO SCH (21:13)
[2018-09-04] VITALS (11 sets, daily range): BP systolic 94–149; BP diastolic 50–76
[2018-09-04] MEDS: ACETYLCYSTEINE 100MG/ML 10% VIAL 4ML INH SCH ×3 (00:10→15:52)
[2018-09-04] MEDS: IPRATROPIUM/ALBUTEROL 0.5-3(2.5)MG/3ML NEB HHN SCH ×6 (00:10→20:47)
[2018-09-04] MEDS: BLOOD SUGAR DIAGNOSTIC STRIP TEST SCH ×4 (05:46→18:09)
[2018-09-04] MEDS: INSULIN LISPRO 100 UNITS/ML SUBCUT SCH ×4 (05:48→18:09)
[2018-09-04 06:36] LABS: BASOPHILS % 0.5 % (0.0-2.0); EOSINOPHILS % 1.6 % (0.0-5.0); HEMOGLOBIN. 9.7 g/dL (14.0-18.0); LYMPHOCYTES % 18.6 % (20.0-50.0); MEAN CORPUSCULAR HEMOGLOBIN 32.3 pg (28.0-32.0); MEAN CORPUSCULAR VOLUME 96.3 fL (80.0-94.0); MEAN PLATELET VOLUME 9.5 fl (7.4-10.4); MONOCYTES % 7.1 % (2.0-8.0); NEUTROPHILS % 72.2 % (40.0-76.0); PLATELET 265 x1000/uL (130-400); RED BLOOD CELL COUNT 3.01 mill/uL (4.7-6.1); RED CELL DISTRIBUTION WIDTH 13.3 % (11.6-14.6)
[2018-09-04] MEDS: LANSOPRAZOLE 30MG DR CAPSULE GT SCH (06:36)
[2018-09-04] MEDS: CEFEPIME 1,000 MG in DEXTROSE 5% WATER 50 ML IV SCH ×2 (08:32→20:29)
[2018-09-04] MEDS: METOPROLOL TARTRATE 25MG TABLET PO SCH ×2 (08:33→20:30)
[2018-09-04] MEDS: LISINOPRIL 10MG TABLET PO SCH (08:33)
[2018-09-04] MEDS: LEVOFLOXACIN 500MG TABLET PO SCH (08:33)
[2018-09-04] MEDS: METRONIDAZOLE 500MG TABLET PO SCH ×2 (08:33→20:29)
[2018-09-04] MEDS ORDERED: VANCOMYCIN 1250MG in DEXTROSE 5% WATER 250ML IV SCH (09:00)
[2018-09-04] MEDS: LORAZEPAM 2MG/ML CPJ IV PRN (20:30)
[2018-09-04] MEDS: RISPERIDONE 0.5MG TABLET PO SCH (20:30)
== END 2018-09-04 21:35 | DRG 870 ==
LOC: ER 00:28 → EDBEDREQTM 03:47 → EDBEDREQSVC 03:47 → EDBEDREQ 03:47 → 5EST 03:57 → EDBEDREQTM 03:58 → EDBEDREQSVC 03:58 → ENRESERV 04:08
PROVIDERS: ADMIT Specialist; ATTEND Specialist
PROC: 5A1955Z Respiratory Ventilation, Greater than 96 Consecutive Hours (ICD-10-PCS; principal; 2018-08-25)
DX: A41.52 Sepsis due to Pseudomonas (principal); J96.20 Acute and chronic respiratory failure, unspecified whether with hypoxia or hypercapnia; J69.0 Pneumonitis due to inhalation of food and vomit; J15.8 Pneumonia due to other specified bacteria; E44.0 Moderate protein-calorie malnutrition; G93.49 Other encephalopathy; J44.0 Chronic obstructive pulmonary disease with (acute) lower respiratory infection; Z99.11 Dependence on respirator [ventilator] status; I69.351 Hemiplegia and hemiparesis following cerebral infarction affecting right dominant side; E11.65 Type 2 diabetes mellitus with hyperglycemia; N18.9 Chronic kidney disease, unspecified; R13.10 Dysphagia, unspecified; D53.9 Nutritional anemia, unspecified; E78.5 Hyperlipidemia, unspecified; E78.00 Pure hypercholesterolemia, unspecified; L98.429 Non-pressure chronic ulcer of back with unspecified severity; E11.22 Type 2 diabetes mellitus with diabetic chronic kidney disease; R47.02 Dysphasia; B96.89 Other specified bacterial agents as the cause of diseases classified elsewhere; K52.9 Noninfective gastroenteritis and colitis, unspecified; I12.9 Hypertensive chronic kidney disease with stage 1 through stage 4 chronic kidney disease, or unspecified chronic kidney disease; Z93.1 Gastrostomy status; Z88.8 Allergy status to other drugs, medicaments and biological substances; Z93.0 Tracheostomy status; Z79.899 Other long term (current) drug therapy; Z79.4 Long term (current) use of insulin; Z79.01 Long term (current) use of anticoagulants; Z87.19 Personal history of other diseases of the digestive system; Z68.22 Body mass index [BMI] 22.0-22.9, adult
CPT/HCPCS: 36415; 36600; 71045; 74176; 80048; 80076; 80202; 82270; 82375; 82550; 82805; 82962; 83605; 83880; 84145; 84484; 85027; 87070; 87077; 87186; 93005; 94002; 94003; 94640; 96374; 99285; J0692; J1650; J1815; J2060; J2543; J3370; J7030; J7040; J7050; J7060; J7608; J7620; Q9963; A4315

== ENCOUNTER 2019-04-10 03:30 | Inpatient (IN) | payer MEDICARE, MEDICAID ==
[~2019-04-10] VITALS: Ht 177.8 cm; Wt 67.6 kg
[~2019-04-10 03:30] MED LIST changes: -ACET-2853 GT; +ACET650T37 GT; -LACT1TAB11 GT; +LACT1TAB14 GT; -OR220 GT; +ZINC1CAP2 GT
[2019-04-10] MEDS ORDERED: ONDANSETRON HCL 4MG/2ML INJ IV STA (03:48)
[2019-04-10] MEDS ORDERED: VANCOMYCIN 1 G PREMIX 200 ML IV ONE (04:00)
[2019-04-10] MEDS ORDERED: SODIUM CHLORIDE 0.9% 1000ML BAG (SEPSIS BOLUS) IV ONE (04:00)
[2019-04-10] MEDS ORDERED: PIPERACILLIN/TAZ 3.375G PREMIX 50 ML IV ONE (04:00)
[2019-04-10 04:23] LABS: HEMATOCRIT. 35.5 % (42.0-52.0); HEMOGLOBIN. 12.1 g/dL (14.0-18.0); MEAN CORPUSCULAR HEMOGLOBIN 32.2 pg (28.0-32.0); MEAN CORPUSCULAR VOLUME 94.3 fL (80.0-94.0); RED BLOOD CELL COUNT 3.77 mill/uL (4.7-6.1); RED CELL DISTRIBUTION WIDTH 12.6 % (11.6-14.6)
[2019-04-10 04:32] LABS: CHLORIDE 100 mEq/L (98-107)
[2019-04-10 06:32] LABS: INR 1.2
[2019-04-10 06:46] LABS: CLARITY URINE CLEAR (CLEAR); COLOR URINE YELLOW (YELLOW); KETONES URINE NEGATIVE (NEGATIVE); LEUKOCYTE ESTERASE URINE TRACE (NEGATIVE); NITRITE URINE NEGATIVE (NEGATIVE); OCCULT BLOOD URINE NEGATIVE (NEGATIVE); PROTEIN URINE TRACE (NEGATIVE); SPECIFIC GRAVITY URINE 1.022 (1.005-1.030); UROBILINOGEN URINE 0.2 E.U./dL (0.2-1.0)
[2019-04-10 07:12] LABS: PLATELET ESTIMATE NORMAL
[2019-04-10 07:13] LABS: MEAN PLATELET VOLUME 10.3 fl (7.4-10.4); PLATELET 175 x1000/uL (130-400)
[2019-04-10 09:47] LABS: BG BASE EXCESS 5.6 mmol/L (-2.0-2.0); BG CARBOXYHEMOGLOBIN 0.3 % (0.5-1.5); BG DEOXYHEMOGLOBIN 1.8 % (0.0-5.0); BG FRACTION INSPIRED OXYGEN 50; BG HCO3 ACT 29.8 mmol/L (22.0-26.0); BG METHEMOGLOBIN 0.1 % (0.0-1.5); BG OXYGEN SATURATION 98.2 % (92.0-98.5); BG OXYHEMOGLOBIN 97.8 % (94.0-97.0); BG PCO2 41.9 mmHg (35.0-45.0); BG PO2 124.5 mmHg (75.0-100.0); BG PRESSURE SUPPORT 12; BG SAMPLE SITE RIGHT BRACHIAL; BG TIDAL VOLUME(mL) 500 mL; BG TOTAL HEMOGLOBIN 11.2 g/dL (12.0-18.0); BG VENT MODE VENT - SIMV; BG VENT RATE 8 set
[2019-04-10] MEDS ORDERED: PIPERACILLIN/TAZOBACTAM 3.375 G in DEXT 5% WATER 100 ML IV SCH (10:00)
[2019-04-10] MEDS ORDERED: IPRATROPIUM/ALBUTEROL 0.5-3(2.5)MG/3ML NEB HHN PRN (10:00)
[2019-04-10] MEDS ORDERED: PIPERACILLIN/TAZ 3.375G PREMIX 50 ML IV SCH (10:45)
[2019-04-10] MEDS: SODIUM CHLORIDE 0.9% 1,000 ML IV SCH ×2 (12:34→20:36)
[2019-04-10] MEDS: IPRATROPIUM/ALBUTEROL 0.5-3(2.5)MG/3ML NEB HHN SCH ×3 (13:11→21:16)
[2019-04-10 17:06] VITALS: BP 109/49
[2019-04-10 17:07] VITALS: BP 109/49
[2019-04-10] MEDS ORDERED: PIPERACILLIN/TAZOBACTAM 3.375GM/50ML PREMIX IV ONE (18:00)
[2019-04-10 20:00] VITALS: BP 103/44
[2019-04-10] MEDS: PIPERACILLIN/TAZOBACTAM 3.375 G in DEXT 5% WATER 100 ML IV SCH (20:36)
[2019-04-10] MEDS: HEPARIN 5000 UNITS/ML VIAL SUBCUT SCH (20:43)
[2019-04-10] MEDS ORDERED: VANCOMYCIN 1250MG in DEXTROSE 5% WATER 250ML IV NR (21:00)
[2019-04-10 22:00] VITALS: BP 109/40
[2019-04-11] VITALS (12 sets, daily range): BP systolic 108–152; BP diastolic 53–76
[2019-04-11] MEDS: ACETYLCYSTEINE 100MG/ML 10% VIAL 4ML INH SCH ×3 (00:25→16:23)
[2019-04-11] MEDS: IPRATROPIUM/ALBUTEROL 0.5-3(2.5)MG/3ML NEB HHN SCH ×6 (00:25→20:30)
[2019-04-11] MEDS: PIPERACILLIN/TAZOBACTAM 3.375 G in DEXT 5% WATER 100 ML IV SCH ×4 (01:53→17:25)
[2019-04-11] MEDS: VANCOMYCIN 750 MG PREMIX 150 ML IV SCH ×3 (05:28→22:02)
[2019-04-11 07:30] LABS: BASOPHILS % 0.4 % (0.0-2.0); EOSINOPHILS % 0.6 % (0.0-5.0); HEMATOCRIT. 26.4 % (42.0-52.0); LYMPHOCYTES % 10.1 % (20.0-50.0); MEAN CORPUSCULAR HEMOGLOBIN 32.1 pg (28.0-32.0); MEAN CORPUSCULAR VOLUME 94.6 fL (80.0-94.0); MEAN PLATELET VOLUME 10.3 fl (7.4-10.4); MONOCYTES % 5.3 % (2.0-8.0); NEUTROPHILS % 83.6 % (40.0-76.0); PLATELET 133 x1000/uL (130-400); RED BLOOD CELL COUNT 2.79 mill/uL (4.7-6.1); RED CELL DISTRIBUTION WIDTH 12.7 % (11.6-14.6)
[2019-04-11 07:40] LABS: CHLORIDE 107 mEq/L (98-107)
[2019-04-11 08:52] LABS: BG BASE EXCESS 3.1 mmol/L (-2.0-2.0); BG CARBOXYHEMOGLOBIN 0.3 % (0.5-1.5); BG DEOXYHEMOGLOBIN 2.2 % (0.0-5.0); BG FRACTION INSPIRED OXYGEN 40; BG HCO3 ACT 27.5 mmol/L (22.0-26.0); BG METHEMOGLOBIN 0.3 % (0.0-1.5); BG OXYGEN SATURATION 97.8 % (92.0-98.5); BG OXYHEMOGLOBIN 97.2 % (94.0-97.0); BG PH 7.444 (7.350-7.450); BG PO2 109.7 mmHg (75.0-100.0); BG SAMPLE SITE RIGHT RADIAL; BG TIDAL VOLUME(mL) 500 mL; BG TOTAL HEMOGLOBIN 9.4 g/dL (12.0-18.0); BG VENT MODE VENT - A/C; BG VENT RATE 12 set
[2019-04-11] MEDS: HEPARIN 5000 UNITS/ML VIAL SUBCUT SCH ×2 (09:16→22:02)
[2019-04-11] MEDS: ACETAMINOPHEN 325MG TABLET PO PRN ×2 (09:17→17:34)
[2019-04-11] MEDS ORDERED: RACEPINEPHRINE 2.25% 0.5ML NEB VIAL HHN PRN (13:15)
[2019-04-11] MEDS: SODIUM CHLORIDE 0.9% 1,000 ML IV SCH (13:21)
[2019-04-11] MEDS: METOPROLOL TARTRATE 25MG TABLET PO SCH (22:02)
[2019-04-12] VITALS (15 sets, daily range): BP systolic 106–183; BP diastolic 50–85
[2019-04-12] MEDS: ACETYLCYSTEINE 100MG/ML 10% VIAL 4ML INH SCH ×2 (00:35→12:55)
[2019-04-12] MEDS: IPRATROPIUM/ALBUTEROL 0.5-3(2.5)MG/3ML NEB HHN SCH ×6 (00:35→19:38)
[2019-04-12] MEDS: PIPERACILLIN/TAZOBACTAM 3.375 G in DEXT 5% WATER 100 ML IV SCH ×4 (00:39→18:24)
[2019-04-12] MEDS: ACETAMINOPHEN 325MG TABLET PO PRN (00:46)
[2019-04-12] MEDS: ONDANSETRON HCL 4MG/2ML INJ IV PRN ×2 (02:23→22:40)
[2019-04-12 05:10] LABS: CHLORIDE 109 mEq/L (98-107)
[2019-04-12] MEDS: VANCOMYCIN 750 MG PREMIX 150 ML IV SCH ×2 (05:31→21:00)
[2019-04-12 05:36] LABS: BASOPHILS % 0.3 % (0.0-2.0); EOSINOPHILS % 1.1 % (0.0-5.0); HEMATOCRIT. 27.1 % (42.0-52.0); HEMOGLOBIN. 9.1 g/dL (14.0-18.0); MEAN CORPUSCULAR HEMOGLOBIN 31.9 pg (28.0-32.0); MEAN CORPUSCULAR VOLUME 95.2 fL (80.0-94.0); MEAN PLATELET VOLUME 10.4 fl (7.4-10.4); MONOCYTES % 4.8 % (2.0-8.0); NEUTROPHILS % 84.8 % (40.0-76.0); PLATELET 145 x1000/uL (130-400); RED BLOOD CELL COUNT 2.84 mill/uL (4.7-6.1); RED CELL DISTRIBUTION WIDTH 12.6 % (11.6-14.6)
[2019-04-12] MEDS: HEPARIN 5000 UNITS/ML VIAL SUBCUT SCH ×2 (10:26→21:01)
[2019-04-12] MEDS: METOPROLOL TARTRATE 25MG TABLET PO SCH ×2 (10:26→21:00)
[2019-04-12] MEDS: METOCLOPRAMIDE HCL 10MG/2ML VIAL IV SCH ×2 (13:20→18:23)
[2019-04-12] MEDS: SODIUM CHLORIDE 0.9% 1,000 ML IV SCH (13:21)
[2019-04-13] VITALS (12 sets, daily range): BP systolic 121–166; BP diastolic 50–113
[2019-04-13] MEDS: ACETYLCYSTEINE 100MG/ML 10% VIAL 4ML INH SCH ×3 (00:09→16:20)
[2019-04-13] MEDS: IPRATROPIUM/ALBUTEROL 0.5-3(2.5)MG/3ML NEB HHN SCH ×6 (00:09→20:43)
[2019-04-13] MEDS: PIPERACILLIN/TAZOBACTAM 3.375 G in DEXT 5% WATER 100 ML IV SCH ×5 (00:35→23:26)
[2019-04-13] MEDS: METOCLOPRAMIDE HCL 10MG/2ML VIAL IV SCH ×5 (00:35→23:26)
[2019-04-13] MEDS: SODIUM CHLORIDE 0.9% 1,000 ML IV SCH ×2 (04:45→16:12)
[2019-04-13 08:24] LABS: BASOPHILS % 0.3 % (0.0-2.0); EOSINOPHILS % 0.2 % (0.0-5.0); HEMATOCRIT. 25.3 % (42.0-52.0); HEMOGLOBIN. 8.7 g/dL (14.0-18.0); LYMPHOCYTES % 9.4 % (20.0-50.0); MEAN CORPUSCULAR HEMOGLOBIN 32.9 pg (28.0-32.0); MONOCYTES % 5.7 % (2.0-8.0); NEUTROPHILS % 84.4 % (40.0-76.0); PLATELET 143 x1000/uL (130-400); RED BLOOD CELL COUNT 2.66 mill/uL (4.7-6.1); RED CELL DISTRIBUTION WIDTH 12.7 % (11.6-14.6)
[2019-04-13 08:36] LABS: CHLORIDE 110 mEq/L (98-107)
[2019-04-13] MEDS: VANCOMYCIN 750 MG PREMIX 150 ML IV SCH (08:43)
[2019-04-13] MEDS: METOPROLOL TARTRATE 25MG TABLET PO SCH ×2 (08:46→21:59)
[2019-04-13] MEDS: HEPARIN 5000 UNITS/ML VIAL SUBCUT SCH ×2 (08:47→21:59)
[2019-04-14] VITALS (12 sets, daily range): BP systolic 131–180; BP diastolic 55–91
[2019-04-14] MEDS: IPRATROPIUM/ALBUTEROL 0.5-3(2.5)MG/3ML NEB HHN SCH ×6 (00:59→20:11)
[2019-04-14] MEDS: METOCLOPRAMIDE HCL 10MG/2ML VIAL IV SCH ×3 (06:17→18:26)
[2019-04-14] MEDS: PIPERACILLIN/TAZOBACTAM 3.375 G in DEXT 5% WATER 100 ML IV SCH ×3 (06:17→17:05)
[2019-04-14 07:01] LABS: CHLORIDE 110 mEq/L (98-107)
[2019-04-14 07:09] LABS: BASOPHILS % 0.4 % (0.0-2.0); HEMATOCRIT. 27.1 % (42.0-52.0); HEMOGLOBIN. 9.2 g/dL (14.0-18.0); LYMPHOCYTES % 16.8 % (20.0-50.0); MEAN CORPUSCULAR HEMOGLOBIN 32.4 pg (28.0-32.0); MEAN CORPUSCULAR VOLUME 95.3 fL (80.0-94.0); MEAN PLATELET VOLUME 9.7 fl (7.4-10.4); NEUTROPHILS % 73.8 % (40.0-76.0); PLATELET 147 x1000/uL (130-400); RED BLOOD CELL COUNT 2.84 mill/uL (4.7-6.1); RED CELL DISTRIBUTION WIDTH 12.8 % (11.6-14.6)
[2019-04-14] MEDS: ACETYLCYSTEINE 100MG/ML 10% VIAL 4ML INH SCH ×2 (08:54→15:37)
[2019-04-14] MEDS: METOPROLOL TARTRATE 25MG TABLET PO SCH ×2 (09:39→22:05)
[2019-04-14] MEDS: HEPARIN 5000 UNITS/ML VIAL SUBCUT SCH ×2 (09:41→22:06)
[2019-04-14] MEDS: ACETAMINOPHEN 325MG TABLET PO PRN ×2 (09:44→15:15)
[2019-04-15] VITALS (14 sets, daily range): BP systolic 141–177; BP diastolic 63–103
[2019-04-15] MEDS: IPRATROPIUM/ALBUTEROL 0.5-3(2.5)MG/3ML NEB HHN SCH ×6 (00:13→20:17)
[2019-04-15] MEDS: ACETYLCYSTEINE 100MG/ML 10% VIAL 4ML INH SCH ×3 (00:13→15:42)
[2019-04-15] MEDS: METOCLOPRAMIDE HCL 10MG/2ML VIAL IV SCH ×4 (00:34→18:59)
[2019-04-15] MEDS: PIPERACILLIN/TAZOBACTAM 3.375 G in DEXT 5% WATER 100 ML IV SCH ×4 (00:34→18:59)
[2019-04-15 06:17] LABS: BASOPHILS % 0.3 % (0.0-2.0); EOSINOPHILS % 1.1 % (0.0-5.0); HEMATOCRIT. 25.3 % (42.0-52.0); HEMOGLOBIN. 8.7 g/dL (14.0-18.0); LYMPHOCYTES % 12.4 % (20.0-50.0); MEAN CORPUSCULAR HEMOGLOBIN 32.3 pg (28.0-32.0); MEAN CORPUSCULAR VOLUME 94.5 fL (80.0-94.0); MEAN PLATELET VOLUME 9.1 fl (7.4-10.4); MONOCYTES % 7.7 % (2.0-8.0); NEUTROPHILS % 78.5 % (40.0-76.0); PLATELET 158 x1000/uL (130-400); RED BLOOD CELL COUNT 2.68 mill/uL (4.7-6.1); RED CELL DISTRIBUTION WIDTH 12.8 % (11.6-14.6)
[2019-04-15 07:32] LABS: CHLORIDE 111 mEq/L (98-107)
[2019-04-15] MEDS: ZINC SULFATE 220 MG ( 50 ) CAPSULE PO SCH (08:00)
[2019-04-15] MEDS: METOPROLOL TARTRATE 25MG TABLET PO SCH ×2 (08:00→22:02)
[2019-04-15] MEDS: ASCORBIC ACID 500 MG TABLET PO SCH (08:01)
[2019-04-15] MEDS: HEPARIN 5000 UNITS/ML VIAL SUBCUT SCH ×2 (08:01→22:01)
[2019-04-15] MEDS: ACETAMINOPHEN 325MG TABLET PO PRN (08:02)
[2019-04-15] MEDS: LOSARTAN POTASSIUM 25 MG TABLET PO SCH (13:53)
[2019-04-16] VITALS (12 sets, daily range): BP systolic 96–179; BP diastolic 60–90
[2019-04-16] MEDS: IPRATROPIUM/ALBUTEROL 0.5-3(2.5)MG/3ML NEB HHN SCH ×6 (00:28→20:37)
[2019-04-16] MEDS: METOCLOPRAMIDE HCL 10MG/2ML VIAL IV SCH ×4 (00:51→17:32)
[2019-04-16] MEDS: PIPERACILLIN/TAZOBACTAM 3.375 G in DEXT 5% WATER 100 ML IV SCH ×4 (00:51→17:32)
[2019-04-16 07:16] LABS: BASOPHILS % 0.6 % (0.0-2.0); EOSINOPHILS % 2.2 % (0.0-5.0); HEMATOCRIT. 25.6 % (42.0-52.0); HEMOGLOBIN. 8.7 g/dL (14.0-18.0); LYMPHOCYTES % 19.1 % (20.0-50.0); MEAN CORPUSCULAR HEMOGLOBIN 32.4 pg (28.0-32.0); MEAN CORPUSCULAR VOLUME 94.9 fL (80.0-94.0); MEAN PLATELET VOLUME 9.5 fl (7.4-10.4); MONOCYTES % 9.4 % (2.0-8.0); NEUTROPHILS % 68.7 % (40.0-76.0); PLATELET 167 x1000/uL (130-400); RED CELL DISTRIBUTION WIDTH 12.9 % (11.6-14.6)
[2019-04-16 07:46] LABS: CHLORIDE 109 mEq/L (98-107)
[2019-04-16] MEDS: ZINC SULFATE 220 MG ( 50 ) CAPSULE PO SCH (08:19)
[2019-04-16] MEDS: ASCORBIC ACID 500 MG TABLET PO SCH (08:19)
[2019-04-16] MEDS: HEPARIN 5000 UNITS/ML VIAL SUBCUT SCH ×2 (08:20→20:39)
[2019-04-16] MEDS: LOSARTAN POTASSIUM 25 MG TABLET PO SCH (08:21)
[2019-04-16] MEDS: METOPROLOL TARTRATE 25MG TABLET PO SCH ×3 (08:21→21:34)
[2019-04-16] MEDS: ACETAMINOPHEN 325MG TABLET PO PRN (20:39)
[2019-04-17] VITALS (11 sets, daily range): BP systolic 82–188; BP diastolic 30–99
[2019-04-17] MEDS: IPRATROPIUM/ALBUTEROL 0.5-3(2.5)MG/3ML NEB HHN SCH ×5 (00:15→20:56)
[2019-04-17] MEDS: METOCLOPRAMIDE HCL 10MG/2ML VIAL IV SCH ×5 (00:34→23:01)
[2019-04-17] MEDS: ACETAMINOPHEN 325MG TABLET PO PRN ×3 (04:35→20:06)
[2019-04-17] MEDS: ONDANSETRON HCL 4MG/2ML INJ IV PRN (04:35)
[2019-04-17] MEDS ORDERED: TRAMADOL 50MG TABLET PO PRN (07:00)
[2019-04-17] MEDS: HEPARIN 5000 UNITS/ML VIAL SUBCUT SCH ×2 (09:40→20:06)
[2019-04-17] MEDS: LOSARTAN POTASSIUM 50 MG TABLET PO SCH (09:50)
[2019-04-17] MEDS: ZINC SULFATE 220 MG ( 50 ) CAPSULE PO SCH (09:50)
[2019-04-17] MEDS: METOPROLOL TARTRATE 25MG TABLET PO SCH (09:51)
[2019-04-17] MEDS: ASCORBIC ACID 500 MG TABLET PO SCH (09:51)
[2019-04-17] MEDS: MEROPENEM 1,000 MG in SODIUM CHLORIDE 0.9% 100 ML IV SCH ×2 (17:29→23:02)
[2019-04-17] MEDS: VANCOMYCIN 1 G PREMIX 200 ML IV SCH (18:49)
[2019-04-17] MEDS: METOPROLOL TARTRATE 50MG TABLET PO SCH (20:04)
[2019-04-17] MEDS: LORAZEPAM 2MG/ML CPJ IV PRN (20:07)
[2019-04-17 20:41] LABS: CLARITY URINE CLEAR (CLEAR); COLOR URINE YELLOW (YELLOW); KETONES URINE NEGATIVE (NEGATIVE); LEUKOCYTE ESTERASE URINE NEGATIVE (NEGATIVE); NITRITE URINE NEGATIVE (NEGATIVE); OCCULT BLOOD URINE TRACE (NEGATIVE); PH URINE >=9.0 (4.5-8.0); PROTEIN URINE 3+ (NEGATIVE); SPECIFIC GRAVITY URINE 1.021 (1.005-1.030)
[2019-04-18] VITALS (12 sets, daily range): BP systolic 106–150; BP diastolic 47–98
[2019-04-18] MEDS: VANCOMYCIN 1 G PREMIX 200 ML IV SCH ×3 (00:04→20:56)
[2019-04-18] MEDS: IPRATROPIUM/ALBUTEROL 0.5-3(2.5)MG/3ML NEB HHN SCH ×6 (00:51→20:11)
[2019-04-18] MEDS: METOCLOPRAMIDE HCL 10MG/2ML VIAL IV SCH ×3 (05:03→17:31)
[2019-04-18] MEDS: LORAZEPAM 2MG/ML CPJ IV PRN ×2 (05:03→22:07)
[2019-04-18 06:31] LABS: BASOPHILS % 0.4 % (0.0-2.0); EOSINOPHILS % 0.5 % (0.0-5.0); HEMATOCRIT. 24.4 % (42.0-52.0); HEMOGLOBIN. 8.4 g/dL (14.0-18.0); LYMPHOCYTES % 12.7 % (20.0-50.0); MEAN CORPUSCULAR HEMOGLOBIN 32.5 pg (28.0-32.0); MEAN CORPUSCULAR VOLUME 94.7 fL (80.0-94.0); MEAN PLATELET VOLUME 9.1 fl (7.4-10.4); MONOCYTES % 5.3 % (2.0-8.0); NEUTROPHILS % 81.1 % (40.0-76.0); PLATELET 200 x1000/uL (130-400); RED BLOOD CELL COUNT 2.57 mill/uL (4.7-6.1); RED CELL DISTRIBUTION WIDTH 13.2 % (11.6-14.6)
[2019-04-18 07:00] LABS: CHLORIDE 110 mEq/L (98-107)
[2019-04-18] MEDS: ZINC SULFATE 220 MG ( 50 ) CAPSULE PO SCH (08:50)
[2019-04-18] MEDS: LOSARTAN POTASSIUM 50 MG TABLET PO SCH (08:50)
[2019-04-18] MEDS: HEPARIN 5000 UNITS/ML VIAL SUBCUT SCH ×2 (08:51→20:56)
[2019-04-18] MEDS: ASCORBIC ACID 500 MG TABLET PO SCH (08:51)
[2019-04-18] MEDS: MEROPENEM 1,000 MG in SODIUM CHLORIDE 0.9% 100 ML IV SCH ×2 (09:01→17:31)
[2019-04-18] MEDS: METOPROLOL TARTRATE 50MG TABLET PO SCH ×2 (09:19→20:55)
[2019-04-19] VITALS (12 sets, daily range): BP systolic 96–169; BP diastolic 42–96
[2019-04-19] MEDS: IPRATROPIUM/ALBUTEROL 0.5-3(2.5)MG/3ML NEB HHN SCH ×6 (00:10→20:38)
[2019-04-19] MEDS: MEROPENEM 1,000 MG in SODIUM CHLORIDE 0.9% 100 ML IV SCH ×3 (00:14→15:44)
[2019-04-19] MEDS: METOCLOPRAMIDE HCL 10MG/2ML VIAL IV SCH ×4 (00:15→17:15)
[2019-04-19 06:48] LABS: BASOPHILS % 0.3 % (0.0-2.0); EOSINOPHILS % 1.5 % (0.0-5.0); HEMATOCRIT. 29.2 % (42.0-52.0); HEMOGLOBIN. 9.7 g/dL (14.0-18.0); LYMPHOCYTES % 8.7 % (20.0-50.0); MEAN CORPUSCULAR HEMOGLOBIN 31.7 pg (28.0-32.0); MEAN CORPUSCULAR VOLUME 95.5 fL (80.0-94.0); MEAN PLATELET VOLUME 9.6 fl (7.4-10.4); MONOCYTES % 3.9 % (2.0-8.0); NEUTROPHILS % 85.6 % (40.0-76.0); PLATELET 224 x1000/uL (130-400); RED BLOOD CELL COUNT 3.06 mill/uL (4.7-6.1); RED CELL DISTRIBUTION WIDTH 13.1 % (11.6-14.6)
[2019-04-19 07:20] LABS: CHLORIDE 110 mEq/L (98-107)
[2019-04-19] MEDS: LOSARTAN POTASSIUM 50 MG TABLET PO SCH (09:37)
[2019-04-19] MEDS: ASCORBIC ACID 500 MG TABLET PO SCH (09:37)
[2019-04-19] MEDS: VANCOMYCIN 1 G PREMIX 200 ML IV SCH (09:37)
[2019-04-19] MEDS: ZINC SULFATE 220 MG ( 50 ) CAPSULE PO SCH (09:38)
[2019-04-19] MEDS: METOPROLOL TARTRATE 50MG TABLET PO SCH ×2 (09:39→21:24)
[2019-04-19] MEDS: HEPARIN 5000 UNITS/ML VIAL SUBCUT SCH ×2 (09:41→21:25)
[2019-04-19] MEDS: LOSARTAN POTASSIUM 50 MG TABLET GT SCH (17:16)
[2019-04-19] MEDS: VANCOMYCIN 750 MG PREMIX 150 ML IV SCH (21:23)
[2019-04-20] VITALS (12 sets, daily range): BP systolic 115–173; BP diastolic 55–122
[2019-04-20] MEDS: MEROPENEM 1,000 MG in SODIUM CHLORIDE 0.9% 100 ML IV SCH ×3 (00:10→16:37)
[2019-04-20] MEDS: METOCLOPRAMIDE HCL 10MG/2ML VIAL IV SCH ×4 (00:11→17:33)
[2019-04-20] MEDS: IPRATROPIUM/ALBUTEROL 0.5-3(2.5)MG/3ML NEB HHN SCH ×6 (00:30→20:03)
[2019-04-20] MEDS: ZINC SULFATE 220 MG ( 50 ) CAPSULE PO SCH (08:11)
[2019-04-20] MEDS: LOSARTAN POTASSIUM 50 MG TABLET GT SCH ×2 (08:11→17:33)
[2019-04-20] MEDS: HEPARIN 5000 UNITS/ML VIAL SUBCUT SCH ×2 (08:12→20:18)
[2019-04-20] MEDS: ASCORBIC ACID 500 MG TABLET PO SCH (08:12)
[2019-04-20] MEDS: METOPROLOL TARTRATE 50MG TABLET PO SCH ×2 (08:12→20:17)
[2019-04-20] MEDS: VANCOMYCIN 750 MG PREMIX 150 ML IV SCH ×2 (09:01→20:16)
[2019-04-20] MEDS: ACETAMINOPHEN 325MG TABLET PO PRN (13:25)
[2019-04-20] MEDS: LORAZEPAM 2MG/ML CPJ IV PRN ×2 (13:33→20:18)
[2019-04-21] VITALS (13 sets, daily range): BP systolic 102–177; BP diastolic 50–77
[2019-04-21] MEDS: METOCLOPRAMIDE HCL 10MG/2ML VIAL IV SCH ×4 (00:14→17:49)
[2019-04-21] MEDS: MEROPENEM 1,000 MG in SODIUM CHLORIDE 0.9% 100 ML IV SCH ×2 (00:14→08:30)
[2019-04-21] MEDS: IPRATROPIUM/ALBUTEROL 0.5-3(2.5)MG/3ML NEB HHN SCH ×6 (00:22→20:59)
[2019-04-21] MEDS: LORAZEPAM 2MG/ML CPJ IV PRN ×2 (05:53→14:36)
[2019-04-21 06:15] LABS: BASOPHILS % 0.6 % (0.0-2.0); EOSINOPHILS % 2.4 % (0.0-5.0); HEMATOCRIT. 29.7 % (42.0-52.0); LYMPHOCYTES % 15.1 % (20.0-50.0); MEAN CORPUSCULAR HEMOGLOBIN 31.9 pg (28.0-32.0); MEAN CORPUSCULAR VOLUME 94.2 fL (80.0-94.0); MEAN PLATELET VOLUME 9.1 fl (7.4-10.4); MONOCYTES % 7.1 % (2.0-8.0); NEUTROPHILS % 74.8 % (40.0-76.0); PLATELET 302 x1000/uL (130-400); RED BLOOD CELL COUNT 3.15 mill/uL (4.7-6.1)
[2019-04-21 07:33] LABS: CHLORIDE 109 mEq/L (98-107)
[2019-04-21] MEDS: VANCOMYCIN 750 MG PREMIX 150 ML IV SCH (08:30)
[2019-04-21] MEDS: LOSARTAN POTASSIUM 50 MG TABLET GT SCH ×2 (08:31→17:49)
[2019-04-21] MEDS: HEPARIN 5000 UNITS/ML VIAL SUBCUT SCH ×2 (08:31→21:59)
[2019-04-21] MEDS: ASCORBIC ACID 500 MG TABLET PO SCH (08:31)
[2019-04-21] MEDS: ZINC SULFATE 220 MG ( 50 ) CAPSULE PO SCH (08:31)
[2019-04-21] MEDS: METOPROLOL TARTRATE 50MG TABLET PO SCH ×2 (08:31→21:58)
[2019-04-21] MEDS: ACETYLCYSTEINE 100MG/ML 10% VIAL 4ML INH SCH ×2 (12:48→17:18)
[2019-04-21] MEDS ORDERED: CEFEPIME 1,000 MG in DEXTROSE 5% WATER 50 ML IV SCH (16:00)
[2019-04-22] VITALS: BP 126/77
[2019-04-22] MEDS: METOCLOPRAMIDE HCL 10MG/2ML VIAL IV SCH (00:39)
[2019-04-22] MEDS: ACETYLCYSTEINE 100MG/ML 10% VIAL 4ML INH SCH (00:43)
[2019-04-22] MEDS: IPRATROPIUM/ALBUTEROL 0.5-3(2.5)MG/3ML NEB HHN SCH (00:44)
[2019-04-22 01:35] VITALS: BP 145/72
[2019-04-22 02:00] VITALS: BP 145/72
[2019-04-22 04:00] VITALS: BP 118/78
[2019-04-22] MEDS ORDERED: VANCOMYCIN 1250MG in DEXTROSE 5% WATER 250ML IV SCH (09:00)
== END 2019-04-22 04:20 | DRG 870 ==
LOC: ER 03:30 → 5EST 04:06 → EDBEDREQ 04:09 → EDBEDREQTM 04:09 → EDBEDREQSVC 04:09 → ENRESERV 12:04 → CANRESERV 12:04 → EDBEDREQSVC 12:19 → ENRESERV 15:32
PROVIDERS: ADMIT Specialist; ATTEND Specialist
PROC: 5A1955Z Respiratory Ventilation, Greater than 96 Consecutive Hours (ICD-10-PCS; principal; 2019-04-10)
PROC: 02HV33Z Insertion of Infusion Device into Superior Vena Cava, Percutaneous Approach (ICD-10-PCS; 2019-04-21)
PROC: B548ZZA Ultrasonography of Superior Vena Cava, Guidance (ICD-10-PCS; 2019-04-21)
DX: A41.9 Sepsis, unspecified organism (principal); J69.0 Pneumonitis due to inhalation of food and vomit; J96.20 Acute and chronic respiratory failure, unspecified whether with hypoxia or hypercapnia; I13.0 Hypertensive heart and chronic kidney disease with heart failure and stage 1 through stage 4 chronic kidney disease, or unspecified chronic kidney disease; I50.32 Chronic diastolic (congestive) heart failure; I69.351 Hemiplegia and hemiparesis following cerebral infarction affecting right dominant side; Z99.11 Dependence on respirator [ventilator] status; D64.9 Anemia, unspecified; E11.22 Type 2 diabetes mellitus with diabetic chronic kidney disease; E78.5 Hyperlipidemia, unspecified; N18.9 Chronic kidney disease, unspecified; J44.9 Chronic obstructive pulmonary disease, unspecified; E78.00 Pure hypercholesterolemia, unspecified; Z88.8 Allergy status to other drugs, medicaments and biological substances; Z93.0 Tracheostomy status; Z93.1 Gastrostomy status; Z68.21 Body mass index [BMI] 21.0-21.9, adult; Z79.899 Other long term (current) drug therapy
CPT/HCPCS: 36415; 36600; 71045; 71046; 76604; 76937; 80048; 80053; 80202; 81003; 82375; 82805; 83605; 83735; 84145; 84484; 85025; 87070; 87804; 93005; 93306; 94003; 94640; 96365; 99291; A6261; C1725; C1893; J0692; J1644; J2060; J2185; J2405; J2543; J2765; J3370; J7030; J7042; J7050; J7060; J7608; J7620

== ENCOUNTER 2019-11-20 13:28 | Inpatient (IN) | payer MEDICARE, MEDICAID ==
[~2019-11-20] VITALS: Ht 182.9 cm; Wt 58.1 kg
[2019-11-20] MEDS ORDERED: PANTOPRAZOLE SODIUM 40 MG/VIAL IV STA (14:25)
[2019-11-20 15:47] LABS: BASOPHILS % 0.6 % (0.0-2.0); EOSINOPHILS % 2.4 % (0.0-5.0); HEMATOCRIT. 33.3 % (42.0-52.0); HEMOGLOBIN. 11.1 g/dL (14.0-18.0); MEAN PLATELET VOLUME 9.8 fl (7.4-10.4); PLATELET 295 x1000/uL (130-400); RED BLOOD CELL COUNT 3.47 mill/uL (4.7-6.1); RED CELL DISTRIBUTION WIDTH 12.7 % (11.6-14.6)
[2019-11-20 15:53] LABS: CHLORIDE 98 mEq/L (98-107)
[2019-11-20 15:57] LABS: PROTHROMBIN TIME 10.7 sec (9.6-11.0)
[2019-11-20 15:58] LABS: CLARITY URINE CLEAR (CLEAR); COLOR URINE YELLOW (YELLOW); KETONES URINE NEGATIVE (NEGATIVE); LEUKOCYTE ESTERASE URINE TRACE (NEGATIVE); NITRITE URINE NEGATIVE (NEGATIVE); OCCULT BLOOD URINE NEGATIVE (NEGATIVE); PH URINE 6.5 (4.5-8.0); PROTEIN URINE NEGATIVE (NEGATIVE); SPECIFIC GRAVITY URINE 1.021 (1.005-1.030); UROBILINOGEN URINE 0.2 E.U./dL (0.2-1.0)
[2019-11-20] MEDS ORDERED: CEFTRIAXONE 1 G PREMIX 50 ML IV ONE (20:15)
[2019-11-20] MEDS ORDERED: IOHEXOL-300 100 ML BOTTLE ONE (23:12)
[2019-11-21] MEDS ORDERED: LOSA50TA41 PO (02:56)
[2019-11-21] MEDS ORDERED: LORA-249 GT (02:56)
[2019-11-21] MEDS ORDERED: TRAM50TA3 GT (02:56)
[2019-11-21 03:22] VITALS: BP 106/58
[2019-11-21] MEDS ORDERED: ONDANSETRON HCL 4MG/2ML INJ IV PRN (04:00)
[2019-11-21] MEDS ORDERED: TRAMADOL 50MG TABLET GT PRN (04:00)
[2019-11-21] MEDS ORDERED: HYDROCODONE/ACETAMINOPHEN 5/325MG TABLET PO PRN (04:00)
[2019-11-21] MEDS ORDERED: CLONIDINE 0.1MG TABLET PO PRN (04:00)
[2019-11-21] MEDS ORDERED: DOCUSATE SODIUM 100MG CAPSULE PO PRN ×2 (04:00→09:00)
[2019-11-21] MEDS ORDERED: METOPROLOL TARTRATE 50MG TABLET GT SCH (04:00)
[2019-11-21] MEDS ORDERED: ACETAMINOPHEN 325MG TABLET PO PRN (04:00)
[2019-11-21] MEDS ORDERED: MAGNESIUM/ALUMINUM HYDROXIDE/SIMETHICONE 30ML UDC PO PRN (04:00)
[2019-11-21 04:31] VITALS: BP 128/70
[2019-11-21] MEDS: LORAZEPAM 2MG/ML CPJ IV PRN (06:30)
[2019-11-21 08:27] LABS: HEMATOCRIT 29.4 % (42.0-52.0); HEMOGLOBIN 9.6 g/dL (14.0-18.0); MEAN CORPUSCULAR HEMOGLOBIN 31.5 pg (28.0-32.0); MEAN CORPUSCULAR VOLUME 96.5 fL (80.0-94.0); PLATELET 308 x1000/uL (130-400); RED BLOOD CELL COUNT 3.04 mill/uL (4.7-6.1); RED CELL DISTRIBUTION WIDTH 12.9 % (11.6-14.6)
[2019-11-21 08:38] LABS: CHLORIDE 97 mEq/L (98-107)
[2019-11-21 08:42] LABS: TOTAL IRON BINDING CAPACITY 266 ug/dL (250-450)
[2019-11-21] MEDS ORDERED: MAGNESIUM HYDROXIDE 400MG/5ML 30ML UDC PO PRN (08:45)
[2019-11-21] MEDS ORDERED: DEXTROSE 50% WATER 50ML SYRINGE IV PRN (09:00)
[2019-11-21] MEDS ORDERED: BISACODYL 10MG SUPP PR PRN (09:00)
[2019-11-21] MEDS ORDERED: LOSARTAN POTASSIUM 50 MG TABLET PO SCH (09:00)
[2019-11-21] MEDS: PANTOPRAZOLE SODIUM 40 MG/VIAL IV SCH ×2 (09:52→18:39)
[2019-11-21] MEDS: SODIUM CHLORIDE 0.9% 1,000 ML IV SCH ×2 (10:00→20:44)
[2019-11-21] MEDS: FERROUS SULFATE 300MG/5ML UDC GT SCH (10:00)
[2019-11-21] MEDS: AZITHROMYCIN 500 MG in DEXT 5% WATER 250 ML IV SCH (10:32)
[2019-11-21] MEDS ORDERED: SODIUM CHLORIDE 0.9% 500 ML IV ONE ×2 (10:45→17:00)
[2019-11-21] MEDS ORDERED: SORBITOL 70% SOLN 30ML GT NR (12:15)
[2019-11-21] MEDS: BLOOD SUGAR DIAGNOSTIC STRIP TEST SCH ×3 (12:20→20:40)
[2019-11-21 13:42] VITALS: BP 88/38
[2019-11-21 16:55] VITALS: BP 89/45
[2019-11-21] MEDS ORDERED: DOCUSATE SODIUM 100MG CAPSULE GT SCH (17:00)
[2019-11-21] MEDS ORDERED: SODIUM CHLORIDE 0.9% 500 ML IV PRN (19:30)
[2019-11-21 20:00] VITALS: BP 89/35
[2019-11-21] MEDS ORDERED: SENNOSIDES/DOCUSATE SOD 8.6/50MG TABLET PO PRN (21:00)
[2019-11-21 22:45] LABS: BG BASE EXCESS 3.3 mmol/L (-2.0-2.0); BG CARBOXYHEMOGLOBIN 0.3 % (0.5-1.5); BG DEOXYHEMOGLOBIN 1.1 % (0.0-5.0); BG FRACTION INSPIRED OXYGEN 36; BG HCO3 ACT 26.5 mmol/L (22.0-26.0); BG METHEMOGLOBIN 0.3 % (0.0-1.5); BG OXYGEN SATURATION 98.9 % (92.0-98.5); BG OXYHEMOGLOBIN 98.3 % (94.0-97.0); BG PCO2 35.1 mmHg (35.0-45.0); BG PH 7.495 (7.350-7.450); BG SAMPLE SITE RIGHT FEMORAL; BG VENT MODE MASK - TRACH
[2019-11-21] MEDS: CEFTRIAXONE 1,000 MG in DEXTROSE 5% WATER 50 ML IV SCH (23:25)
[2019-11-22] VITALS: BP 140/60
[2019-11-22] MEDS ORDERED: CEFTRIAXONE 1,000 MG in DEXTROSE 5% WATER 50 ML IV SCH ×2
[2019-11-22 04:00] VITALS: BP 98/50
[2019-11-22] MEDS: LORAZEPAM 2MG/ML CPJ IV PRN (04:52)
[2019-11-22] MEDS: BLOOD SUGAR DIAGNOSTIC STRIP TEST SCH ×4 (06:47→21:00)
[2019-11-22 08:13] LABS: BASOPHILS % 0.4 % (0.0-2.0); EOSINOPHILS % 0.1 % (0.0-5.0); HEMATOCRIT. 28.3 % (42.0-52.0); HEMOGLOBIN. 9.4 g/dL (14.0-18.0); LYMPHOCYTES % 12.4 % (20.0-50.0); MEAN CORPUSCULAR HEMOGLOBIN 31.9 pg (28.0-32.0); MEAN CORPUSCULAR VOLUME 96.1 fL (80.0-94.0); MEAN PLATELET VOLUME 9.9 fl (7.4-10.4); MONOCYTES % 6.9 % (2.0-8.0); NEUTROPHILS % 80.2 % (40.0-76.0); PLATELET 245 x1000/uL (130-400); RED BLOOD CELL COUNT 2.94 mill/uL (4.7-6.1); RED CELL DISTRIBUTION WIDTH 13.5 % (11.6-14.6)
[2019-11-22 08:47] LABS: CHLORIDE 101 mEq/L (98-107)
[2019-11-22 08:50] VITALS: BP 121/53
[2019-11-22 08:51] LABS: PHOSPHORUS 5.6 mg/dL (2.5-4.9)
[2019-11-22] MEDS: DOCUSATE SODIUM SUGAR FREE 100MG/10ML UDC NG SCH (08:54)
[2019-11-22] MEDS: PANTOPRAZOLE SODIUM 40 MG/VIAL IV SCH ×2 (08:54→17:29)
[2019-11-22] MEDS: AZITHROMYCIN 500 MG in DEXT 5% WATER 250 ML IV SCH (08:54)
[2019-11-22] MEDS: FERROUS SULFATE 300MG/5ML UDC GT SCH (08:54)
[2019-11-22 11:22] VITALS: BP 116/50
[2019-11-22] MEDS: SODIUM CHLORIDE 0.9% 1,000 ML IV SCH ×2 (11:33→17:37)
[2019-11-22] MEDS ORDERED: RISPERIDONE 0.5MG TABLET PO SCH (15:00)
[2019-11-22] MEDS ORDERED: HALOPERIDOL LACTATE 5MG/ML VIAL IM PRN (15:00)
[2019-11-22 16:59] VITALS: BP 85/39
[2019-11-22 20:00] VITALS: BP 100/60
[2019-11-22] MEDS: CEFTRIAXONE 1,000 MG in DEXTROSE 5% WATER 50 ML IV SCH (23:46)
[2019-11-23] VITALS (7 sets, daily range): BP systolic 53–143; BP diastolic 50–80
[2019-11-23] MEDS: SODIUM CHLORIDE 0.9% 1,000 ML IV SCH ×2 (07:00→17:00)
[2019-11-23] MEDS: BLOOD SUGAR DIAGNOSTIC STRIP TEST SCH ×4 (07:20→21:00)
[2019-11-23 10:00] LABS: CHLORIDE 110 mEq/L (98-107)
[2019-11-23 10:04] LABS: BASOPHILS % 0.6 % (0.0-2.0); EOSINOPHILS % 4.9 % (0.0-5.0); HEMATOCRIT. 25.1 % (42.0-52.0); HEMOGLOBIN. 8.5 g/dL (14.0-18.0); LYMPHOCYTES % 16.6 % (20.0-50.0); MEAN CORPUSCULAR HEMOGLOBIN 32.3 pg (28.0-32.0); MEAN CORPUSCULAR VOLUME 95.5 fL (80.0-94.0); MEAN PLATELET VOLUME 9.9 fl (7.4-10.4); NEUTROPHILS % 70.9 % (40.0-76.0); PLATELET 176 x1000/uL (130-400); RED BLOOD CELL COUNT 2.63 mill/uL (4.7-6.1); RED CELL DISTRIBUTION WIDTH 12.9 % (11.6-14.6)
[2019-11-23] MEDS: IPRATROPIUM/ALBUTEROL 0.5-3(2.5)MG/3ML NEB NEB PRN ×2 (10:12→15:04)
[2019-11-23] MEDS: DOCUSATE SODIUM SUGAR FREE 100MG/10ML UDC NG SCH (10:15)
[2019-11-23] MEDS: RISPERIDONE 1MG TABLET PO SCH ×2 (10:15→22:21)
[2019-11-23] MEDS: PANTOPRAZOLE SODIUM 40 MG/VIAL IV SCH (10:15)
[2019-11-23] MEDS: FERROUS SULFATE 300MG/5ML UDC GT SCH (10:21)
[2019-11-23] MEDS: AZITHROMYCIN 500 MG in DEXT 5% WATER 250 ML IV SCH (10:23)
[2019-11-23] MEDS ORDERED: MAGNESIUM HYDROXIDE 400MG/5ML 30ML UDC PO PRN (14:15)
[2019-11-23] MEDS: METOPROLOL TARTRATE 50MG TABLET PO SCH (21:00)
[2019-11-24] VITALS: BP 143/59
[2019-11-24] MEDS: SODIUM CHLORIDE 0.9% 1,000 ML IV SCH (01:01)
[2019-11-24 04:00] VITALS: BP 128/59
[2019-11-24] MEDS: BLOOD SUGAR DIAGNOSTIC STRIP TEST SCH ×2 (07:20→13:02)
[2019-11-24 07:44] LABS: CHLORIDE 115 mEq/L (98-107)
[2019-11-24 07:51] LABS: PHOSPHORUS 2.4 mg/dL (2.5-4.9)
[2019-11-24 08:00] VITALS: BP 142/80
[2019-11-24] MEDS: FERROUS SULFATE 300MG/5ML UDC GT SCH (09:34)
[2019-11-24] MEDS: PANTOPRAZOLE SODIUM 40 MG/VIAL IV SCH ×2 (09:34→09:36)
[2019-11-24] MEDS: DOCUSATE SODIUM SUGAR FREE 100MG/10ML UDC NG SCH (09:34)
[2019-11-24] MEDS: METOPROLOL TARTRATE 50MG TABLET PO SCH (09:35)
[2019-11-24] MEDS: RISPERIDONE 1MG TABLET PO SCH (09:35)
[2019-11-24 12:00] VITALS: BP 111/67
[2019-11-24] MEDS ORDERED: METOPROLOL TARTRATE 50MG TABLET PO SCH (21:00)
== END 2019-11-24 13:00 | DRG 871 ==
LOC: ER 13:28 → MICUSO 20:49 → EDBEDREQ 21:08 → EDBEDREQTM 21:08 → MICUSO 11-21 01:09 → 6WST 11-21 01:13
PROVIDERS: ADMIT Internal Medicine; ATTEND Internal Medicine
DX: A41.9 Sepsis, unspecified organism (principal); L89.154 Pressure ulcer of sacral region, stage 4; E43 Unspecified severe protein-calorie malnutrition; G92 Toxic encephalopathy; J69.0 Pneumonitis due to inhalation of food and vomit; J96.21 Acute and chronic respiratory failure with hypoxia; D62 Acute posthemorrhagic anemia; E87.1 Hypo-osmolality and hyponatremia; E87.3 Alkalosis; I13.0 Hypertensive heart and chronic kidney disease with heart failure and stage 1 through stage 4 chronic kidney disease, or unspecified chronic kidney disease; I42.9 Cardiomyopathy, unspecified; I50.32 Chronic diastolic (congestive) heart failure; J84.9 Interstitial pulmonary disease, unspecified; K92.0 Hematemesis; N17.9 Acute kidney failure, unspecified; Z99.11 Dependence on respirator [ventilator] status; I69.351 Hemiplegia and hemiparesis following cerebral infarction affecting right dominant side; Z68.1 Body mass index [BMI] 19.9 or less, adult; J44.0 Chronic obstructive pulmonary disease with (acute) lower respiratory infection; R04.2 Hemoptysis; E11.22 Type 2 diabetes mellitus with diabetic chronic kidney disease; E78.5 Hyperlipidemia, unspecified; E83.39 Other disorders of phosphorus metabolism; E83.41 Hypermagnesemia; E83.51 Hypocalcemia; E86.9 Volume depletion, unspecified; B96.5 Pseudomonas (aeruginosa) (mallei) (pseudomallei) as the cause of diseases classified elsewhere; R00.1 Bradycardia, unspecified; E87.8 Other disorders of electrolyte and fluid balance, not elsewhere classified; I48.0 Paroxysmal atrial fibrillation; K56.41 Fecal impaction; N18.9 Chronic kidney disease, unspecified; R13.10 Dysphagia, unspecified; D53.9 Nutritional anemia, unspecified; Z93.0 Tracheostomy status; Z93.1 Gastrostomy status; Z79.01 Long term (current) use of anticoagulants; Z79.899 Other long term (current) drug therapy; Z88.8 Allergy status to other drugs, medicaments and biological substances; Z03.818 Encounter for observation for suspected exposure to other biological agents ruled out
CPT/HCPCS: 36415; 36600; 71045; 74018; 74177; 80048; 80053; 81003; 82040; 82270; 82375; 82805; 82962; 83036; 83540; 83550; 83605; 83735; 84100; 84134; 84443; 84484; 85025; 85027; 86850; 86900; 87635; 93005; 93970; 94640; 97167; 99285; C9113; J0456; J0696; J2060; J7030; J7060; Q9967

== ENCOUNTER 2020-03-28 18:14 | Inpatient (IN) | payer MEDICARE, MEDICAID ==
[~2020-03-28] VITALS: Ht 167.6 cm; Wt 56.4 kg
[~2020-03-28 18:14] MED LIST changes: -ACETYLCYSTEINE 10% HHN; -ASCO500C15 MT; -CHLO473M2 MT; -CHOL100022 GT; -CLON-457 GT; -FAMO20TA8 GT; -FURO20TA4 GT; -HYDR-4001 MT; -LACT1TAB14 GT; -LEVVL SQ; -LISI40TA4 PO; -METO25TA6 MT; -SCOP1PAT10 TP; -ZINC1CAP2 GT
[2020-03-28] MEDS ORDERED: PANTOPRAZOLE SODIUM 40 MG/VIAL IV STA (18:58)
[2020-03-28] MEDS ORDERED: SODIUM CHLORIDE 0.9% 1000ML BAG (SEPSIS BOLUS) IV ONE (19:00)
[2020-03-28] MEDS ORDERED: ONDANSETRON HCL 4MG/2ML INJ IV ONE (19:00)
[2020-03-28 20:27] LABS: BASOPHILS % 0.4 % (0.0-2.0); EOSINOPHILS % 0.4 % (0.0-5.0); HEMATOCRIT. 25.6 % (42.0-52.0); HEMOGLOBIN. 8.7 g/dL (14.0-18.0); LYMPHOCYTES % 11.1 % (20.0-50.0); MEAN CORPUSCULAR HEMOGLOBIN 33.6 pg (28.0-32.0); MEAN PLATELET VOLUME 9.9 fl (7.4-10.4); MONOCYTES % 6.9 % (2.0-8.0); NEUTROPHILS % 81.2 % (40.0-76.0); PLATELET 321 x1000/uL (130-400); RED BLOOD CELL COUNT 2.59 mill/uL (4.7-6.1); RED CELL DISTRIBUTION WIDTH 13.1 % (11.6-14.6)
[2020-03-28 20:29] LABS: INR 1.1; PROTHROMBIN TIME 11.1 sec (9.6-11.0)
[2020-03-28 20:38] LABS: CHLORIDE 102 mEq/L (98-107)
[2020-03-28] MEDS ORDERED: VANCOMYCIN 1 G PREMIX 200 ML IV ONE (21:00)
[2020-03-28] MEDS ORDERED: PIPERACILLIN/TAZ 3.375G PREMIX 50 ML IV ONE (21:00)
[2020-03-28] MEDS ORDERED: LORAZEPAM 2MG/ML CPJ IV ONE (22:30)
[2020-03-28] MEDS ORDERED: PANTOPRAZOLE 80 MG in SODIUM CHLORIDE 0.9% 100 ML IV STA (22:57)
[2020-03-28] MEDS ORDERED: METRONIDAZOLE 500 MG PREMIX 100 ML IV ONE (23:00)
[2020-03-28 23:44] LABS: BG BASE EXCESS 4.9 mmol/L (-2.0-2.0); BG CARBOXYHEMOGLOBIN 0.3 % (0.5-1.5); BG DEOXYHEMOGLOBIN 3.6 % (0.0-5.0); BG FRACTION INSPIRED OXYGEN 35; BG HCO3 ACT 30.4 mmol/L (22.0-26.0); BG METHEMOGLOBIN 0.1 % (0.0-1.5); BG OXYGEN SATURATION 96.4 % (92.0-98.5); BG PCO2 49.9 mmHg (35.0-45.0); BG PH 7.402 (7.350-7.450); BG PO2 93.8 mmHg (75.0-100.0); BG SAMPLE SITE ALINE; BG TOTAL HEMOGLOBIN 8.7 g/dL (12.0-18.0); BG VENT MODE COOL AEROSOL
[2020-03-29] MEDS ORDERED: NOREPINEPHRINE 8 MG in DEXT 5% WATER 242 ML IV STA (00:06)
[2020-03-29] MEDS ORDERED: NOREPINEPHRINE 8 MG in DEXT 5% WATER 242 ML IV SCH (00:30)
[2020-03-29] MEDS ORDERED: DEXAMETHASONE 10 MG/ML VIAL IV ONE (01:15)
[2020-03-29] MEDS: HALOPERIDOL LACTATE 5MG/ML VIAL IM PRN ×2 (06:22→20:54)
[2020-03-29 07:45] LABS: CLARITY URINE CLOUDY (CLEAR); COLOR URINE YELLOW (YELLOW); KETONES URINE NEGATIVE (NEGATIVE); LEUKOCYTE ESTERASE URINE 1+ (NEGATIVE); NITRITE URINE NEGATIVE (NEGATIVE); OCCULT BLOOD URINE 2+ (NEGATIVE); PH URINE 6.5 (4.5-8.0); PROTEIN URINE TRACE (NEGATIVE); SPECIFIC GRAVITY URINE 1.019 (1.005-1.030); UROBILINOGEN URINE 0.2 E.U./dL (0.2-1.0)
[2020-03-29] MEDS ORDERED: TRAZODONE HCL 50MG TABLET PO PRN (11:15)
[2020-03-29] MEDS ORDERED: ACETAMINOPHEN 325MG TABLET PO PRN (11:15)
[2020-03-29] MEDS ORDERED: ONDANSETRON HCL 4MG/2ML INJ IV PRN (11:15)
[2020-03-29] MEDS: PANTOPRAZOLE SODIUM 40 MG/VIAL IV SCH ×3 (11:30→19:25)
[2020-03-29 11:47] LABS: BASOPHILS % 0.6 % (0.0-2.0); EOSINOPHILS % 2.9 % (0.0-5.0); HEMATOCRIT. 23.1 % (42.0-52.0); HEMOGLOBIN. 7.9 g/dL (14.0-18.0); LYMPHOCYTES % 17.1 % (20.0-50.0); MEAN CORPUSCULAR HEMOGLOBIN 33.5 pg (28.0-32.0); MEAN PLATELET VOLUME 9.4 fl (7.4-10.4); MONOCYTES % 8.6 % (2.0-8.0); NEUTROPHILS % 70.8 % (40.0-76.0); PLATELET 242 x1000/uL (130-400); RED BLOOD CELL COUNT 2.35 mill/uL (4.7-6.1)
[2020-03-29 11:59] LABS: CHLORIDE 111 mEq/L (98-107)
[2020-03-29 12:04] LABS: TOTAL IRON BINDING CAPACITY 248 ug/dL (250-450)
[2020-03-29] MEDS: SODIUM CHLORIDE 0.45% 1,000 ML IV SCH (12:15)
[2020-03-29 12:32] LABS: VITAMIN B12 SERUM >2000 pg/mL pg/mL (211-911)
[2020-03-29 12:48] LABS: FOLIC ACID (FOLATE) SERUM > 20.00 ng/mL (>5.38)
[2020-03-29] MEDS: PIPERACILLIN/TAZ 3.375G PREMIX 50 ML IV SCH ×2 (12:51→19:08)
[2020-03-29] MEDS ORDERED: DEXAMETHASONE 10 MG/ML VIAL IV NR (14:00)
[2020-03-29 14:03] LABS: FERRITIN 217 ng/mL (22-322)
[2020-03-29 14:36] LABS: CREATINE KINASE 277 IU/L (39-308)
[2020-03-29] MEDS: VANCOMYCIN 1 G PREMIX 200 ML IV SCH (19:07)
[2020-03-30] VITALS (21 sets, daily range): BP systolic 92–145; BP diastolic 42–80
[2020-03-30] MEDS: PIPERACILLIN/TAZ 3.375G PREMIX 50 ML IV SCH ×2 (00:57→06:13)
[2020-03-30] MEDS: SODIUM CHLORIDE 0.45% 1,000 ML IV SCH ×2 (02:19→12:04)
[2020-03-30] MEDS: LORAZEPAM 2MG/ML CPJ IV PRN ×2 (03:39→12:48)
[2020-03-30] MEDS: ACETAMINOPHEN 650MG SUPP PR PRN (03:39)
[2020-03-30] MEDS ORDERED: NOREPINEPHRINE 8 MG in DEXT 5% WATER 242 ML IV SCH (04:00)
[2020-03-30] MEDS ORDERED: METOPROLOL TARTRATE 5MG/5ML VIAL IV PRN (07:15)
[2020-03-30 09:27] LABS: BASOPHILS % 0.4 % (0.0-2.0); EOSINOPHILS % 0.1 % (0.0-5.0); HEMATOCRIT. 22.6 % (42.0-52.0); HEMOGLOBIN. 7.5 g/dL (14.0-18.0); LYMPHOCYTES % 14.7 % (20.0-50.0); MEAN CORPUSCULAR HEMOGLOBIN 32.9 pg (28.0-32.0); MEAN CORPUSCULAR VOLUME 98.7 fL (80.0-94.0); MEAN PLATELET VOLUME 9.6 fl (7.4-10.4); MONOCYTES % 8.6 % (2.0-8.0); NEUTROPHILS % 76.2 % (40.0-76.0); PLATELET 253 x1000/uL (130-400); RED BLOOD CELL COUNT 2.29 mill/uL (4.7-6.1); RED CELL DISTRIBUTION WIDTH 13.2 % (11.6-14.6)
[2020-03-30] MEDS ORDERED: SODIUM POLYSTYRENE SULFONATE 15 G/60 ML BOT PO NR (09:30)
[2020-03-30 09:35] LABS: CHLORIDE 111 mEq/L (98-107)
[2020-03-30 09:42] LABS: LDL CHOLESTEROL 61 mg/dL (5-100)
[2020-03-30 09:43] LABS: HDL CHOLESTEROL 43 mg/dL (40-59)
[2020-03-30] MEDS: VANCOMYCIN 1 G PREMIX 200 ML IV SCH (10:29)
[2020-03-30] MEDS ORDERED: PHENYLEPHRINE 100 MG in DEXT 5% WATER 240 ML IV PRN (11:15)
[2020-03-30] MEDS: IPRATROPIUM BROMIDE (0.02%) 0.5MG/2.5ML NEB HHN SCH ×2 (12:03→20:23)
[2020-03-30] MEDS: PIPERACILLIN/TAZOBACTAM 3.375 G in DEXT 5% WATER 100 ML IV SCH ×3 (12:24→23:28)
[2020-03-30] MEDS ORDERED: SODIUM POLYSTYRENE SULFONATE 15 G/60 ML BOT PEG ONE (13:45)
[2020-03-30] MEDS ORDERED: LORA-249 PO (14:37)
[2020-03-30] MEDS ORDERED: CLON-457 PO (14:37)
[2020-03-30] MEDS ORDERED: LOSA50TA41 PO (14:43)
[2020-03-30] MEDS ORDERED: QUET50TA PO (14:43)
[2020-03-30] MEDS: MORPHINE SULFATE 2 MG/ML CPJ (NOT FOR IM USE) IV PRN (15:00)
[2020-03-30] MEDS: ACETYLCYSTEINE 100MG/ML 10% VIAL 4ML INH SCH (16:00)
[2020-03-30] MEDS: PANTOPRAZOLE SODIUM 40 MG/VIAL IV SCH (18:00)
[2020-03-31] VITALS (52 sets, daily range): BP systolic 78–162; BP diastolic 44–84
[2020-03-31] MEDS: MORPHINE SULFATE 2 MG/ML CPJ (NOT FOR IM USE) IV PRN ×3 (01:47→18:13)
[2020-03-31] MEDS: IPRATROPIUM BROMIDE (0.02%) 0.5MG/2.5ML NEB HHN SCH ×8 (04:00→21:54)
[2020-03-31] MEDS: SODIUM CHLORIDE 0.45% 1,000 ML IV SCH ×2 (04:15→18:17)
[2020-03-31] MEDS: HALOPERIDOL LACTATE 5MG/ML VIAL IM PRN (04:30)
[2020-03-31] MEDS: VANCOMYCIN 1 G PREMIX 200 ML IV SCH (04:47)
[2020-03-31] MEDS: PIPERACILLIN/TAZOBACTAM 3.375 G in DEXT 5% WATER 100 ML IV SCH ×3 (06:07→18:08)
[2020-03-31 06:08] LABS: MEAN CORPUSCULAR HEMOGLOBIN 32.3 pg (28.0-32.0); MEAN CORPUSCULAR VOLUME 98.6 fL (80.0-94.0); MEAN PLATELET VOLUME 9.7 fl (7.4-10.4); PLATELET 239 x1000/uL (130-400); RED CELL DISTRIBUTION WIDTH 13.2 % (11.6-14.6)
[2020-03-31 06:12] LABS: CHLORIDE 109 mEq/L (98-107)
[2020-03-31 06:22] LABS: HEMATOCRIT. 20.7 % (42.0-52.0); HEMOGLOBIN. 6.8 g/dL (14.0-18.0)
[2020-03-31] MEDS: ACETYLCYSTEINE 100MG/ML 10% VIAL 4ML INH SCH (08:38)
[2020-03-31] MEDS: PANTOPRAZOLE SODIUM 40 MG/VIAL IV SCH ×2 (09:04→17:00)
[2020-03-31] MEDS: ACETAMINOPHEN 650MG SUPP PR PRN ×2 (09:04→21:06)
[2020-03-31] MEDS ORDERED: SODIUM POLYSTYRENE SULFONATE 15 G/60 ML BOT PO SCH (10:00)
[2020-03-31 17:46] LABS: PLATELET ESTIMATE NORMAL
[2020-03-31] MEDS: LORAZEPAM 2MG/ML CPJ IV PRN (21:44)
[2020-04-01] VITALS (70 sets, daily range): BP systolic 81–128; BP diastolic 36–91
[2020-04-01] MEDS: ACETYLCYSTEINE 100MG/ML 10% VIAL 4ML INH SCH ×2 (00:34→08:39)
[2020-04-01] MEDS: IPRATROPIUM BROMIDE (0.02%) 0.5MG/2.5ML NEB HHN SCH ×3 (00:34→08:39)
[2020-04-01] MEDS: PIPERACILLIN/TAZOBACTAM 3.375 G in DEXT 5% WATER 100 ML IV SCH ×2 (01:40→05:58)
[2020-04-01] MEDS ORDERED: VANCOMYCIN 750 MG PREMIX 150 ML IV SCH (04:00)
[2020-04-01 04:07] LABS: CHLORIDE 111 mEq/L (98-107)
[2020-04-01 04:26] LABS: BASOPHILS % 0.3 % (0.0-2.0); HEMATOCRIT. 25.1 % (42.0-52.0); HEMOGLOBIN. 8.2 g/dL (14.0-18.0); LYMPHOCYTES % 10.9 % (20.0-50.0); MEAN CORPUSCULAR VOLUME 98.3 fL (80.0-94.0); MEAN PLATELET VOLUME 9.3 fl (7.4-10.4); MONOCYTES % 7.6 % (2.0-8.0); NEUTROPHILS % 80.2 % (40.0-76.0); PLATELET 151 x1000/uL (130-400); RED BLOOD CELL COUNT 2.56 mill/uL (4.7-6.1); RED CELL DISTRIBUTION WIDTH 15.4 % (11.6-14.6)
[2020-04-01] MEDS: SODIUM CHLORIDE 0.45% 1,000 ML IV SCH (06:00)
[2020-04-01] MEDS: PANTOPRAZOLE SODIUM 40 MG/VIAL IV SCH (09:17)
[2020-04-01] MEDS ORDERED: MORPHINE SULFATE 250 MG in DEXT 5% WATER 240 ML IV PRN (11:00)
[2020-04-02] VITALS: BP 107/43
[2020-04-02 04:00] VITALS: BP 144/48
[2020-04-02 08:00] VITALS: BP 101/46
[2020-04-02 12:00] VITALS: BP 154/57
[2020-04-02 16:00] VITALS: BP 99/49
[2020-04-02] MEDS: MORPHINE SULFATE 250 MG in DEXT 5% WATER 225 ML IV PRN (17:02)
[2020-04-02 20:00] VITALS: BP 84/41
[2020-04-03] VITALS: BP 100/38
[2020-04-03 04:00] VITALS: BP 116/40
[2020-04-03 08:00] VITALS: BP 93/45
[2020-04-03 12:00] VITALS: BP 102/49
[2020-04-03 16:00] VITALS: BP 102/41
[2020-04-03] MEDS: MORPHINE SULFATE 250 MG in DEXT 5% WATER 225 ML IV PRN (18:48)
[2020-04-03 20:00] VITALS: BP 97/43
[2020-04-04] VITALS: BP 109/42
[2020-04-04] MEDS: ACETAMINOPHEN 650MG SUPP PR PRN (01:15)
[2020-04-04 04:00] VITALS: BP 95/41
[2020-04-04 08:00] VITALS: BP 84/40
[2020-04-04 12:00] VITALS: BP 120/62
[2020-04-04 16:00] VITALS: BP 124/56
[2020-04-04 20:00] VITALS: BP 94/45
[2020-04-04] MEDS: CEFEPIME 1,000 MG in DEXTROSE 5% WATER 50 ML IV SCH (22:39)
[2020-04-04] MEDS: MORPHINE SULFATE 250 MG in DEXT 5% WATER 225 ML IV PRN (23:07)
[2020-04-05] VITALS: BP 88/44
[2020-04-05 04:00] VITALS: BP 107/46
[2020-04-05 08:00] VITALS: BP 96/40
[2020-04-05] MEDS: ACETAMINOPHEN 650MG SUPP PR PRN (09:32)
[2020-04-05] MEDS: CEFEPIME 1,000 MG in DEXTROSE 5% WATER 50 ML IV SCH (11:15)
[2020-04-05 12:00] VITALS: BP 104/58
[2020-04-05 16:00] VITALS: BP 100/40
[2020-04-05 20:00] VITALS: BP 100/41
[2020-04-06] VITALS: BP 93/45
[2020-04-06 04:00] VITALS: BP 109/40
[2020-04-06 08:00] VITALS: BP 126/42
[2020-04-06 10:00] LABS: HEMATOCRIT. 22.7 % (42.0-52.0); HEMOGLOBIN. 7.4 g/dL (14.0-18.0); MEAN CORPUSCULAR HEMOGLOBIN 32.1 pg (28.0-32.0); MEAN CORPUSCULAR VOLUME 98.3 fL (80.0-94.0); PLATELET 217 x1000/uL (130-400); RED BLOOD CELL COUNT 2.31 mill/uL (4.7-6.1); RED CELL DISTRIBUTION WIDTH 15.1 % (11.6-14.6)
[2020-04-06 10:13] LABS: CHLORIDE 118 mEq/L (98-107)
[2020-04-06 12:00] VITALS: BP 123/48
[2020-04-06 16:00] VITALS: BP 132/62
[2020-04-06 20:00] VITALS: BP 124/48
[2020-04-06 20:47] LABS: PLATELET ESTIMATE NORMAL
[2020-04-07] VITALS: BP 120/54
[2020-04-07 04:00] VITALS: BP 140/58
[2020-04-07] MEDS: MORPHINE SULFATE 250 MG in DEXT 5% WATER 225 ML IV PRN (05:11)
[2020-04-07 08:00] VITALS: BP 123/60
[2020-04-07 12:00] VITALS: BP 115/57
[2020-04-07 16:00] VITALS: BP 115/61
[2020-04-07 20:00] VITALS: BP 100/43
[2020-04-08] VITALS: BP 104/41
[2020-04-08 04:00] VITALS: BP 100/40
[2020-04-08 08:00] VITALS: BP 116/50
[2020-04-08 12:00] VITALS: BP 114/50
[2020-04-08 16:00] VITALS: BP 103/44
[2020-04-08 20:00] VITALS: BP 111/45
[2020-04-08] MEDS ORDERED: MORPHINE SULFATE 250 MG in DEXT 5% WATER 240 ML IV PRN (23:15)
[2020-04-08] MEDS ORDERED: MORPHINE SULFATE 250 MG in DEXT 5% WATER 225 ML IV PRN (23:41)
[2020-04-09] VITALS: BP 99/52
[2020-04-09 04:00] VITALS: BP 99/56
[2020-04-09 08:00] VITALS: BP 104/60
[2020-04-09 12:00] VITALS: BP 98/59
[2020-04-09 16:00] VITALS: BP 95/57
[2020-04-09 20:00] VITALS: BP 120/48
[2020-04-09] MEDS: ACETAMINOPHEN 650MG SUPP PR PRN (21:42)
[2020-04-10] VITALS: BP 115/97
[2020-04-10 04:00] VITALS: BP 121/48
[2020-04-10 08:00] VITALS: BP 103/42
[2020-04-10 12:00] VITALS: BP 82/36
[2020-04-10 16:00] VITALS: BP 81/36
[2020-04-10 20:00] VITALS: BP 81/38
[2020-04-11] VITALS: BP 75/37
[2020-04-11 04:00] VITALS: BP 76/38
[2020-04-11 08:00] VITALS: BP 88/37
[2020-04-11 12:00] VITALS: BP 88/33
[2020-04-11] MEDS: ACETAMINOPHEN 650MG SUPP PR PRN (12:07)
[2020-04-11 16:00] VITALS: BP 158/105
[2020-04-11] MEDS ORDERED: MORPHINE SULFATE 250 MG in SODIUM CHLORIDE 0.9% 225 ML IV PRN (17:36)
[2020-04-11 20:00] VITALS: BP 76/32
[2020-04-12] VITALS: BP 78/34
[2020-04-12 04:00] VITALS: BP 73/35
[2020-04-12 08:00] VITALS: BP 63/30
[2020-04-12 12:00] VITALS: BP 71/31
== END 2020-04-12 14:20 | disposition expired | DRG 871 ==
LOC: ER 18:14 → MICUSO 03-29 00:28 → EDBEDREQTM 03-29 00:31 → EDBEDREQ 03-29 00:31 → EDBEDREQSVC 03-29 00:31 → EDBEDREQDT 03-29 00:31 → 5EST 03-30 08:36 → 6EST 04-01 20:41
PROVIDERS: ADMIT Specialist; ATTEND Specialist
PROC: 30233N1 Transfusion of Nonautologous Red Blood Cells into Peripheral Vein, Percutaneous Approach (ICD-10-PCS; principal; 2020-03-29)
PROC: 06HY33Z Insertion of Infusion Device into Lower Vein, Percutaneous Approach (ICD-10-PCS; 2020-03-29)
DX: A41.9 Sepsis, unspecified organism (principal); G93.41 Metabolic encephalopathy; I21.4 Non-ST elevation (NSTEMI) myocardial infarction; J96.20 Acute and chronic respiratory failure, unspecified whether with hypoxia or hypercapnia; J69.0 Pneumonitis due to inhalation of food and vomit; D62 Acute posthemorrhagic anemia; E44.0 Moderate protein-calorie malnutrition; I69.351 Hemiplegia and hemiparesis following cerebral infarction affecting right dominant side; N17.9 Acute kidney failure, unspecified; N39.0 Urinary tract infection, site not specified; E87.2 Acidosis; I50.32 Chronic diastolic (congestive) heart failure; I13.0 Hypertensive heart and chronic kidney disease with heart failure and stage 1 through stage 4 chronic kidney disease, or unspecified chronic kidney disease; Z99.11 Dependence on respirator [ventilator] status; K92.2 Gastrointestinal hemorrhage, unspecified; R57.8 Other shock; E87.5 Hyperkalemia; D53.9 Nutritional anemia, unspecified; E11.22 Type 2 diabetes mellitus with diabetic chronic kidney disease; E78.00 Pure hypercholesterolemia, unspecified; F41.9 Anxiety disorder, unspecified; I48.0 Paroxysmal atrial fibrillation; K21.9 Gastro-esophageal reflux disease without esophagitis; K44.9 Diaphragmatic hernia without obstruction or gangrene; L84 Corns and callosities; S90.821A Blister (nonthermal), right foot, initial encounter; E78.5 Hyperlipidemia, unspecified; N18.9 Chronic kidney disease, unspecified; Z93.0 Tracheostomy status; R65.20 Severe sepsis without septic shock; R13.10 Dysphagia, unspecified; R00.0 Tachycardia, unspecified; Z20.828 Contact with and (suspected) exposure to other viral communicable diseases; Z51.5 Encounter for palliative care; Z66 Do not resuscitate; X58.XXXA Exposure to other specified factors, initial encounter; Z79.899 Other long term (current) drug therapy; Z87.440 Personal history of urinary (tract) infections; Z68.20 Body mass index [BMI] 20.0-20.9, adult; Y93.89 Activity, other specified; Y92.89 Other specified places as the place of occurrence of the external cause; Y99.8 Other external cause status
CPT/HCPCS: 36415; 36600; 71045; 76770; 80048; 80053; 80061; 80202; 81003; 82270; 82375; 82550; 82607; 82728; 82746; 82805; 82962; 83036; 83540; 83550; 83605; 83735; 83880; 84145; 84484; 85025; 85044; 86850; 86900; 86920; 93005; 93923; 94640; 99291; A6261; C9113; J0692; J1100; J1630; J2060; J2270; J2274; J2405; J2543; J3370; J3490; J7030; J7040; J7050; J7060; J7608; P9016; U0003